=== PATIENT | male | born 1940 | race Caucasian/White ===

== ENCOUNTER 2024-08-24 19:11 | Inpatient (IN) | payer MEDICARE, SELFPAY ==
[2024-08-24] VITALS (25 sets, daily range): BP systolic 114–201; BP diastolic 50–100; BMI 25.5
[2024-08-24] MEDS: KEPPRA 1500 MG IV (16:44)
[2024-08-24 16:47] LABS: % Basophils 0.7 % (0-2); % Eosinophils 2.3 % (0-6); % Immature Granulocytes 0.4 % (0-0.5); % Lymphocytes 26.7 % (20.5-51.1); % Monocytes 4.1 % (1.7-9.3); % Neutrophils 65.8 % (42.2-75.2); Absolute Basophils 0.1 10^3/uL (0-0.2); Absolute Eosinophils 0.3 10^3/uL (0-0.7); Absolute Immature Granulocytes 0.1 10^3/uL (0-0.05); Absolute Lymphocytes 3.3 10^3/uL (1.2-3.4); Absolute Monocytes 0.5 10^3/uL (0.1-0.6); Hemoglobin 15.2 g/dL (13.0-18.0); Mean Corpuscular Hgb 32.3 pg (27.0-31.0); Mean Corpuscular Volume 97.7 fL (80.0-94.0); Mean Platelet Volume 10.8 fL (7.4-10.4); Nucleated Red Blood Cells % 0 % (-); Platelet Count 263 10^3/uL (130-400); Red Blood Cell Count 4.71 10^6/uL (4.70-6.10); Red Cell Dist. Width 12.2 % (11.5-14.5); White Blood Cell Count 12.2 10^3/uL (4.8-10.8)
[2024-08-24 17:01] LABS: PT 13.5 Sec (11.4-14.6)
[2024-08-24 17:02] LABS: APTT 23.9 Sec (23.4-35.0)
[2024-08-24] MEDS: ATIVAN 2 MG IV (17:13)
[2024-08-24 17:19] LABS: AST (SGOT) 24 U/L (17-59); Alkaline Phosphatase 71 U/L (38-126); Blood Urea Nitrogen 23 mg/dl (9-20); Calcium 8.5 mg/dl (8.4-10.2); Carbon Dioxide 12 mmol/L (22-30); Chloride 107 mmol/L (98-107); Estimated Creatinine Clearance 35 ml/min; Glucose 131 mg/dl (70-99); Potassium 4.3 mmol/L (3.5-5.1); Sodium 139 mmol/L (135-145); Total Bilirubin 0.8 mg/dl (0.2-1.3); Total Protein 6.4 g/dl (6.3-8.2); eGFR 42.22
--- NOTE | 2024-08-24 17:20 | EDRN ---
Dr. Loaiza is is currently at the bedside preparing to intubate, respiratory bringing vent to bedside
[2024-08-24 17:24] LABS: ALT (SGPT) < 30 U/L (0-50)
--- NOTE | 2024-08-24 17:25 | EDRN ---
20mg Etomidate administered
--- NOTE | 2024-08-24 17:25 | EDRN ---
70mg Phil administered
--- NOTE | 2024-08-24 17:25 | EDRN ---
Dr. Loaiza intubating with respiratory at bedside and multiple RN's
--- NOTE | 2024-08-24 17:27 | EDRN ---
Dr. Loaiza currently intubating
--- NOTE | 2024-08-24 17:27 | EDRN ---
positive color change per Dr. Loaiza and respiratory
--- NOTE | 2024-08-24 17:34 | ED.GENMED ---
History of Present Illness
General
Chief Complaint: Seizure
Time Seen by Provider: 08/24/24 16:41
History of Present Illness
History of Present Illness:
84-year-old male with history of seizure disorder on Keppra presenting after a seizure. Patient arrives with family at bedside, called in by medics for seizure activity. Patient ran out of his Keppra last weekend, had not had Keppra for 3 days.
Today, had a witnessed seizure while sitting down, reportedly 15 minutes. Administered 4 mg of Versed and route to the hospital with subsequent improvement of seizure activity. On arrival, patient postictal unable to comply with additional history
or questioning. Family notes that he has not had a seizure for about 10 years. No report of recent fever or illness. No additional history obtained at this time. Of note, medics report when transferring patient, suffered a skin tear to his right
forearm. No report of fall
Past History
Past History
ED Past Medical History: Hypercholesterolemia, Seizures (1 prior seizure in the past) and Other (Gout)
PSI?: No
Social History
Tobacco: Non-smoker
Alcohol: Daily (Patient reports taking 1 shot of alcohol each night)
Drug: None
Personal:
Living: with family
Family History
Family History: Other
Phy Exam
Physical Exam
Physical Exam:
General: Unresponsive, suspected postictal state
HEENT: protecting airway
Neck: appears supple
CV: Normal heart rate, regular rhythm
Resp: No accessory muscle use, no increased work of breathing, lungs clear to auscultation bilaterally
Abd: Soft and non-distended, no tenderness to palpation
Extremities: No deformities, no swelling, no erythema. Large skin tear to the right forearm
Neuro: Not currently responsive, no verbal or motor response.
: deferred
Rectal: deferred
Psych: Normal affect
Skin: Intact
Course
Orders/Labs/Results
Orders:
Orders
08/24/24 16:30
Electrocardiogram (*1) Urgent
Reason for Study: Other
Other Reason for Exam: seizure
CT Head W/o Iv Contrast Urgent
Comment:
Reason For Exam: seizure
08/24/24 16:31
EKG- Treatment ONCE
08/24/24 16:33
Complete Blood Count/With Diff Urgent
Comprehensive Metabolic Panel Urgent
PTT Urgent
Prothrombin Time Urgent
08/24/24 16:41
Levetiracetam Injectable [Keppra] 1,500 mg IV NOW STA
08/24/24 16:49
Lorazepam [Ativan] 2 mg .ROUTE .STK-MED ONE
08/24/24 17:13
Lorazepam [Ativan] 2 mg IV NOW STA
08/24/24 17:16
Propofol 1,000,000 Mcg/100 ml [Diprivan] 1,000,000 mcg in 100 ml .ROUTE .STK-MED
08/24/24 17:27
CXR Port [CR Chest Portable - 1 View] Urgent
Comment:
Reason For Exam: post intubation
Reason Study Needs to be Portable: Patient Unstable
08/24/24 17:30
Propofol 1,000,000 Mcg/100 ml [Diprivan] 1,000,000 mcg in 100 ml IV PER PROTOCOL
Indication:: Deep Sedation
Begin Infusion:: Now
Goal:: RASS -3 to -5 or BIS < 60 or ventilator synchrony
Maximum dose in mcg/kg/min:: 50
Continue currently infusion dose and titrate:: Yes
Titration Instructions:: Titrate by 5-10 mcg/kg/min every 5 minutes until RASS -3 to -5 or
Titration Instructions:: BIS < 60 or ventilator synchrony is met.
Titration Instructions:: Administer analgesia bolus dose(s) & titrate analgesia prior to
Titration Instructions:: adjusting sedation.
Taper Instructions:: If RASS is at or below goal for 4 consecutive hours decrease infusion by
Taper Instructions:: 5-10 mcg/kg/min every 2 hours. Do not wean infusion to off if patient is
Taper Instructions:: receiving a continuous NMBA or has received bolus NMBA with the past 3 hrs
Over-sedation Instructions:: If BIS < 40 and synchronous with ventilator decrease infusion by
Over-sedation Instructions:: 5-10 mcg/kg/min every 2 hour until BIS = 40-60.
Notify provider:: immediately if patient exhibits signs/symptoms of propofol-related
Notify provider:: infusion syndrome.
Additional Instructions:: Patient MUST be mechanically ventilated and MUST receive analgesia.
08/24/24 17:31
Triglycerides Routine
Comment: baseline levels with propofol infusion
08/24/24 17:38
ABG [Arterial Blood Gas] Urgent
%Oxygen/Room Air: 60
08/27/24 06:00
Triglycerides Q3D
Comment: every 72 hours while patient is on propofol
08/30/24 06:00
Triglycerides Q3D
Comment: every 72 hours while patient is on propofol
09/02/24 06:00
Triglycerides Q3D
Comment: every 72 hours while patient is on propofol
Abnormal Lab Results
08/24/24
16:33
WBC 12.2 H 10^3/uL
(4.8-10.8)
MCV 97.7 H fL
(80.0-94.0)
MCH 32.3 H pg
(27.0-31.0)
MPV 10.8 H fL
(7.4-10.4)
Abs Immat Gran (auto) 0.1 H 10^3/uL
(0-0.05)
Absolute Neuts (auto) 8.0 H 10^3/uL
(1.4-6.5)
Carbon Dioxide 12 L* mmol/L
(22-30)
BUN 23 H mg/dl
(9-20)
Creatinine 1.6 H mg/dL
(0.7-1.3)
Glucose 131 H mg/dl
(70-99)
08/24/24 16:33
08/24/24 16:33
Vital Signs
Initial and Last Documented VS:
Initial Vital Signs
Pulse Resp Pulse Ox
95 22 96
08/24/24 16:32 08/24/24 16:32 08/24/24 16:32
Last Documented Vital Signs
Temp Pulse Resp BP Pulse Ox
97.5 F 95 16 172/83 95
08/24/24 17:04 08/24/24 17:04 08/24/24 17:04 08/24/24 17:04 08/24/24 17:04
Procedures
Laceration Closure
Right Distal Arm:
Size of Wound in cm: 10
Description of Wound Edges: flap-poorly vascularized
Type of Closure: single layer closure
Skin Closure Material: 3-0 nylon
Number of sutures: 4
Additional information:
large skin tear, friable skin, dressed appropriately
MDM/Problems Addressed
MDM/Problems Addressed:
84-year-old male presenting to the emergency department after seizure. Known seizure history. Vital signs significant for high blood pressure.
On exam patient is unresponsive, however does appear to be presently protecting airway. Placed on supplemental O2. Family notes that he ran out of his Keppra last week and, so missed several days of medication. Suspect seizure from noncompliance
with medication. No convulsive seizure activity at this time, does occasionally have some rapid eye movements and grinding of the teeth, possibly subclinical seizures. Plan for laboratory analysis and CT brain imaging. Will start patient on
Keppra.
17:20 -Patient is not clinically improving from a postictal perspective. CT without obvious sign of intracranial bleed. In discussion with family, decision made to intubate for airway protection. Did discuss with neurology, plan for starting
propofol once intubated for continued seizure control.
17:40 -patient intubated without issue. Please see procedure note. Plan for admission. Of note, right skin tear, 4 sutures placed for approximation, however unable to repair whole arm secondary to friable skin
*Critical Care Note
Total Time (30-74mins, 75-104mins- exclusive of procedures): 62
comment:
The high probability of a clinically significant, sudden or life threatening deterioration of the neurologic system(s)/seizures required my full and direct attention, intervention and personal management. The aggregate critical care time was []
minutes. This time is in addition to time spent performing reported procedures but includes the following:
[x] Data Review and interpretation
[x] Patient assessment and monitoring of vital signs
[x] Documentation
[x] Medication orders and management
ED Attending Note
-
Portions of this chart may have been created with voice recognition software.� Occasional wrong word or��sound alike� substitutions may have occurred due to the inherent limitations of voice recognition software.
Discharge Plan
Departure
Prescriptions:
No Action
atorvastatin 40 MG tablet
40 mg PO QPM
allopurinol 100 MG tablet
100 mg PO DAILY
aspirin [Aspir-Low] 81 MG tablet,delayed release (DR/EC)
81 mg PO DAILY
finasteride 5 MG tablet
5 mg PO DAILY
levetiracetam 500 MG tablet
500 mg PO BID Qty: 30 0RF
cephalexin 500 mg capsule
500 mg PO TID Qty: 21 0RF
Interventions
Interventions:
*Risk Screen - Suicide Last Done: 08/24/24 17:04
*General Assessment Last Done: 08/24/24 17:04
*Neglect/Abuse Screening Last Done: 08/24/24 17:04
ED- Fall Risk Assessment Last Done: 08/24/24 17:04
*ED COVID-19 Vaccine History Last Done: 08/24/24 17:04
ED- Cardiac Assessment Last Done: 08/24/24 17:04
ED- Neurological Assessment Last Done: 08/24/24 17:04
ED- Pulmonary Assessment Last Done: 08/24/24 17:04
Discharge Date and Time
Print Language: MACEDONIAN
[2024-08-24] MEDS: DIPRIVAN 100 IV ×2 (17:35→20:57)
--- NOTE | 2024-08-24 17:50 | EDRN ---
Dr. Loaiza brought to the pts bedside, provider checking placement of ETT
--- NOTE | 2024-08-24 17:51 | EDRN ---
ETT advanced to 24cm
[2024-08-24 18:01] LABS: B.E. -7.9 mmol/L; HCO3 20.1 mmol/L (21-28); PCO2 49 mmHg (35-48); PO2 72 mmHg (83-108); pH 7.22 (7.35-7.45)
--- NOTE | 2024-08-24 18:18 | EDRN ---
this RN and Dulce RN changed the pts gown, brief, and linens, the pt has multiple skin tears on b/l arms and the pts skin tears easily, pts PIV site dressings were changed due to bleeding around PIV site, PIV's flushed and positive blood return
noted, the pt is resting in stretcher in the lowest position, side rails up x2, call najera within reach, HOB elevated, VS WNL, the pts family is at the pts bedside, will continue to monitor the pt closely
--- NOTE | 2024-08-24 18:26 | EDRN ---
the pt is hypertensive, this RN notified Dr. Loaiza
[2024-08-24] MEDS: TRANDATE 20 MG IV (18:30)
--- NOTE | 2024-08-24 18:51 | HPS.HSE ---
Family Physician
-
Family Physician: Sae Schuster MD
Chief Complaint
-
Status Epilepticus
History of Present Illness
Is a 84-year-old with past medical history significant for epilepsy on Keppra 500 mg twice daily presents to the emergency department in the setting of seizure activity.
Medics medics were called after the patient experienced seizure activity at home. Apparently he ran out of his Keppra and had not taken it for over 3 days. He started taking the Keppra again 5 days ago at 500 twice daily and not being consistent
until today. He had a witnessed seizure while sitting down reportedly lasting 15 minutes. 4 mg of Versed was given en route to the hospital with subsequent improvement in seizure activity.
On arrival the patient was still unresponsive and postictal in the emergency department. He apparently was grinding his teeth and it was unclear whether he had complete cessation of seizure activity or was having nonepileptic seizures.
Patient immediately intubated for airway protection.
Initial vital signs showed a blood pressure of 196/90 with a pulse of 99. Oxygen saturation is 97 from percent on the ventilator.
CT of the head shows no acute intracranial process.
CBC was mostly unremarkable consistent with post ictal state. Electrolytes BUN/creatinine are notable for a bicarb of 12, creatinine of 1.6 and a glucose of 131.
Medical History
Past Medical History
Past Medical History: Reports Hypercholesterolemia, Seizures and Other (BPH, gout)
Past Surgical History: Reports Other
Social History
Unable to obtain full social history at this time due to: Patient Intubation
Family History
Family History: Not pertinent
Allergies / Home Medications
Allergies reflects when Allergies were last updated in [email or web address].
Home Medications with original date entered in [email or web address]
Allergy/Medication List:
Allergies
Allergy/AdvReac Type Severity Reaction Status Date / Time
No Known Allergies Allergy Verified 02/24/23 20:19
Home Medications
allopurinol 100 mg tablet 100 mg PO DAILY 06/07/17
atorvastatin 40 mg tablet 40 mg PO DAILY 06/07/17
finasteride 5 mg tablet 5 mg PO DAILY 06/07/17
levetiracetam 500 mg tablet 500 mg PO BID #30 tabs 06/07/17
sennosides 8.6 mg tablet (Senokot) 8.6 mg PO DAILYPRN PRN constipation 08/24/24
Review of Systems
-
Unable to obtain full review of systems at this time due to: Patient Intubation
Physical Exam
Vital Signs
Vital Signs
Temp Pulse Resp BP Pulse Ox
97.5 F 99 26 196/91 97
08/24/24 17:04 08/24/24 18:30 08/24/24 18:28 08/24/24 18:30 08/24/24 18:28
Physical Exam
General: Intubated
HEENT: NormoCephalic, Anicteric, Moist mucous membranes and Atraumatic
Respiratory: Clear
Cardiac: S1/S2 and Regular Rhythm
Breast: Deferred by me
GI: Soft and Non Distended
Rectal: Deferred by Provider
Genito-urinary: Deferred by me
Musculoskeletal: No Clubbing, No Cyanosis and No Edema
Skin: Warm
Neuro: Sedated
Hematologic/Lymphatic: No Lymphadenopathy
Laboratory Results
-
08/24/24 16:33
08/24/24 16:33
Laboratory Results
PT 13.5 Sec (11.4-14.6) 08/24/24 16:33
INR 1.00 08/24/24 16:33
APTT 23.9 Sec (23.4-35.0) 08/24/24 16:33
pH 7.22 (7.35-7.45) L 08/24/24 17:42
pCO2 49 mmHg (35-48) H 08/24/24 17:42
pO2 72 mmHg (83-108) L 08/24/24 17:42
HCO3 20.1 mmol/L (21-28) L 08/24/24 17:42
Total Bilirubin 0.8 mg/dl (0.2-1.3) 08/24/24 16:33
AST 24 U/L (17-59) 08/24/24 16:33
ALT < 30 U/L (0-50) 08/24/24 16:33
Alkaline Phosphatase 71 U/L (38-126) 08/24/24 16:33
Data Reviewed
-
Diagnostic Radiology: Image Personally Visualized and interpreted
CT Scan: Report Reviewed by me
Lab Data: Labs Reviewed by me
Old Records: Reviewed
Impression/Plan
-
IMPRESSION:
84-year-old with past medical history significant for seizure episodes falls diagnosed about 10 years ago presenting to the emergency department with seizure episode, tonic-clonic lasting about 10 minutes prior to EMS arrival and patient postictal.
Likely had status epilepticus. Intubated for airway protection on arrival in ED. Patient missed 3 days of keppra from Sunday to Sunday. Restarted Keppra 500 bid on sunday and has been compliant. No anatomical cause of original epilepsy [address] head negative. No obvious toxins, infectious process. No obvious CVA. No etoh use or h/o withdrawal.
PLAN:
1. Status Epilepticus -
- intubated for airway protection
- Keppra 1.5 g given, continue 1 g q 12
- propofol gtt for sedation and antiseizure.
- eeg in am
- mri in am
- neurology consult
- titrate vent settings per real estate salesperson
- supportive measures and iv fluids
2. Fever - Post intubation xray with homogeneous opacity in the retrocardiac left lower lobe. Possible considerations include pleural effusion, atelectasis, or pneumonia.
- suspect aspiration in setting of seizure
- viral panel negative
- blood cultures, u/a
- unasyn for now
3. BPH
- continue finesteride
DVT PPX - heparin sq
Code status - Full Code
[2024-08-24 18:55] LABS: Triglycerides 64 mg/dl (10-149)
[2024-08-24] MEDS: SUBLIMAZE 100 IV (21:03)
[2024-08-24] MEDS: D5LR 1000 IV (21:03)
[2024-08-24] MEDS: SUBLIMAZE 100 MCG IV (21:04)
[2024-08-24] MEDS: TYLENOL/FEVERALL 650 MG RECTAL (21:08)
[2024-08-24 22:01] LABS: COVID-19 Antigen Negative (Negative)
[2024-08-24 22:02] LABS: Blood Urea Nitrogen 27 mg/dl (9-20); Calcium 8.4 mg/dl (8.4-10.2); Carbon Dioxide 21 mmol/L (22-30); Chloride 109 mmol/L (98-107); Creatine Phosphokinase 52 U/L (55-170); Estimated Creatinine Clearance 38 ml/min; Glucose 121 mg/dl (70-99); Potassium 4.5 mmol/L (3.5-5.1); Sodium 138 mmol/L (135-145); Triglycerides 85 mg/dl (10-149); eGFR 45.62
--- NOTE | 2024-08-24 22:33 | PTCARENOTE ---
VS captured prior to 20:20 were from ED, prior to arrival to ICU.
[2024-08-24 22:40] LABS: Urine Albumin 2+ (Neg - Trace); Urine Bilirubin Negative (Negative); Urine Character Slightly Cloudy (Clear); Urine Color Yellow; Urine Glucose Negative (Negative); Urine Ketone 1+ (Negative); Urine Leukocyte Negative (Negative); Urine Nitrite Negative (Negative); Urine Occult Blood 4+ (Negative); Urine Urobilinogen Negative (Neg - 1+)
[2024-08-24 22:40] LABS: B.E. -3.5 mmol/L; HCO3 20.4 mmol/L (21-28); PCO2 33 mmHg (35-48); PO2 80 mmHg (83-108)
[2024-08-24 22:45] LABS: Lactic Acid 3.4 mmol/L (0.7-2.0)
[2024-08-24 22:49] LABS: Urine Bacteria Few (Negative); Urine Red Blood Cell 26-30 /HPF (0-2)
--- NOTE | 2024-08-24 22:50 | PTCARENOTE ---
Pt arrived to ICU from ED approx 20:20. Pt arrives intubated and sedated. Pupils 3/brisk, corneal reflex intermittent, +cough/gag. SR 70s, palpable pulses. Temp 101.6, rectal tylenol given, blood/urine/sputum cx sent. #7.5 ETT @ 26cm, received on AC
16/500/60%/+5, FiO2 decreased by RT to 40%. Pt continues to sat 100%. Breath sounds coarse t/o. Active BS, no BM noted at this time. Temp-sensing guzman placed, initial output 150ml. and daughter updated. Safe environment maintained.
[2024-08-24] MEDS: UNASYN IV (23:03)
[2024-08-25] VITALS (39 sets, daily range): BP systolic 109–170; BP diastolic 39–83; BMI 24.6
[2024-08-25] MEDS: HEPARIN 5000 UNITS SC ×3 (01:09→17:14)
[2024-08-25] MEDS: TYLENOL/FEVERALL 650 MG RECTAL (01:09)
[2024-08-25] MEDS: NSS 1000 IV ×2 (01:12→03:24)
[2024-08-25 01:16] LABS: Lactic Acid 2.7 mmol/L (0.7-2.0)
[2024-08-25 01:21] LABS: Procalcitonin < 0.05 ng/ml (0.0-0.25)
[2024-08-25] MEDS: DIPRIVAN 100 IV (03:24)
[2024-08-25] MEDS: UNASYN IV ×4 (03:24→22:21)
[2024-08-25] MEDS: KEPPRA 1000 MG IV ×3 (03:59→20:04)
[2024-08-25 05:19] LABS: Hematocrit 36.6 % (39.0-52.0); Hemoglobin 13.3 g/dL (13.0-18.0); Mean Corp Hgb Conc. 36.3 g/dL (33.0-37.0); Mean Corpuscular Hgb 34.6 pg (27.0-31.0); Mean Corpuscular Volume 95.3 fL (80.0-94.0); Mean Platelet Volume 11.3 fL (7.4-10.4); Platelet Count 173 10^3/uL (130-400); Red Blood Cell Count 3.84 10^6/uL (4.70-6.10); Red Cell Dist. Width 12.6 % (11.5-14.5); White Blood Cell Count 16.8 10^3/uL (4.8-10.8)
[2024-08-25 05:23] LABS: Lactic Acid 1.6 mmol/L (0.7-2.0)
[2024-08-25 05:42] LABS: Blood Urea Nitrogen 24 mg/dl (9-20); Calcium 6.6 mg/dl (8.4-10.2); Carbon Dioxide 14 mmol/L (22-30); Chloride 105 mmol/L (98-107); Estimated Creatinine Clearance 47 ml/min; Glucose 128 mg/dl (70-99); HDL Cholesterol 46 mg/dl; Magnesium 1.9 mg/dl (1.6-2.3); Phosphorus 2.2 mg/dl (2.5-4.5); Sodium 130 mmol/L (135-145); Total Cholesterol 95 mg/dl (50-199); eGFR 59.63
--- NOTE | 2024-08-25 05:51 | PTCARENOTE ---
Pt with 25-30ml/hr of urine output, x2L NSS bolus given. Ca = 6.6, 3g rider ordered. CO2 = 14, IVF changed to SW w/ bicarb.
[2024-08-25 06:24] LABS: Triglyceride > 2625 mg/dl (10-149)
[2024-08-25] MEDS: SODIUM BICARBONATE 1150 MEQ IV (06:38)
[2024-08-25] MEDS: CALCIUM GLUCONATE 130 MG IV (06:39)
[2024-08-25 06:52] LABS: LDL Cholesterol, Direct < 30 mg/dl
--- NOTE | 2024-08-25 07:15 | CON.INTV ---
Consultation
Consultation Request
Date/Time Consultation Requested: 08/25/24
Date/Time Consultation Performed: 08/25/24
Performing Provider: [facility]
Reason for Consultation: ICU
Medical History
-
History of Present Illness:
Patient is a 84-year-old male with history of seizure disorder on Keppra, BPH, HLD presenting to ER for witnessed seizure at home. Reportedly patient had ran out of his Keppra last weekend, missed dosing for total of 3 days. Seizure is noted to
last about 15 minutes, EMS called. Administered 4 mg of Versed and route to the hospital with subsequent improvement of seizure activity. On arrival, patient postictal unable to comply with additional history or questioning. Family notes that he
has not had a seizure for about 10 years. No report of recent fever or illness. No additional history obtained at this time. Of note, medics report when transferring patient, suffered a skin tear to his right forearm. No report of fall or self
injury.
Intubated in ER for unresponsiveness, admitted to ICU.
Past Medical History
Past Medical History: Other (see list below)
Social History
Tobacco: Non-smoker
Alcohol: None
Drug: None
Family History
Family History: Reviewed & Not Pertinent
Allergies / Home Medications
Allergies
Allergy/AdvReac Type Severity Reaction Status Date / Time
No Known Allergies Allergy Verified 02/24/23 20:19
Home Medications
�Medication �Instructions �Recorded �Confirmed �Last Taken �Type
allopurinol 100 mg tablet 100 mg PO DAILY 06/07/17 08/24/24 Unknown History
atorvastatin 40 mg tablet 40 mg PO DAILY 06/07/17 08/24/24 Unknown History
finasteride 5 mg tablet 5 mg PO DAILY 06/07/17 08/24/24 Unknown History
levetiracetam 500 mg tablet 500 mg PO BID #30 tabs 06/07/17 08/24/24 Unknown Rx
sennosides 8.6 mg tablet (Senokot) 8.6 mg PO DAILYPRN PRN constipation 08/24/24 08/24/24 Unknown History
Review of Systems
-
Unable to Obtain full review of systems at this time due to: Patient Intubation
Vitals / Labs / Diagnostic Testing
Vital Signs
Temp Pulse Resp BP Pulse Ox
99.5 F 61 16 119/54 95
08/25/24 05:55 08/25/24 05:45 08/25/24 05:45 08/25/24 05:30 08/25/24 05:45
Lab Data
08/25/24 04:46
Laboratory Results
08/24/24 08/24/24 08/24/24
16:33 17:42 22:29
PT 13.5
INR 1.00
APTT 23.9
pH 7.22 L 7.40
pCO2 49 H 33 L
pO2 72 L 80 L
HCO3 20.1 L 20.4 L
O2 Delivery Level
Microbiology
08/24/24 21:34 Nasal Swab Influenza Types A & B (SHAHID) - Final
Negative for Influenza A & B, NAAT
Negative results must be combined with clinical observations
and patient history.
Nucleic Acid Amplification test (NAAT)performed on the
[employer] platform.
Diagnostic Testing:
Physical Exam
-
HEENT: Normocephalic, Anicteric and Moist Mucous Membranes
Cardiovascular: S1/S2 and Regular Rhythm
Respiratory: Clear, Non-Labored Respirations and Other (ETT)
GI: Soft, Non Distended and Non Tender
Neurology: Other (lethargic, minimally arousable)
Skin: Warm, Dry and Good Color
General: Comfortable and Other (NAD)
Assessment
-
Patient is a 84-year-old male with history of seizure disorder on Keppra, BPH, HLD presenting to ER for witnessed seizure at home. Reportedly patient had ran out of his Keppra last weekend, missed dosing for total of 3 days. Seizure is noted to
last about 15 minutes, EMS called. Administered 4 mg of Versed and route to the hospital with subsequent improvement of seizure activity. On arrival, patient postictal unable to comply with additional history or questioning. Family notes that he
has not had a seizure for about 10 years. No report of recent fever or illness. No additional history obtained at this time. Of note, medics report when transferring patient, suffered a skin tear to his right forearm. No report of fall or self
injury.
Intubated in ER for unresponsiveness, admitted to ICU.
Acute witnessed generalized seizure
Noncompliance with medication for 3 days
Postictal/unresponsiveness s/p intubation for airway protection
Leukocytosis, likely post seizure
Metabolic acidosis
Hypocalcemia
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
Benign prostatic hyperplasia with lower urinary tract symptoms
Pure hypercholesterolemia
Chronic gout of foot
Stage 3a chronic kidney disease
Seizure disorder--Last seizure occurred 7 years ago in 05/2017; none since-on Keppra 500mg BID
Mild cognitive impairment
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
Primary open angle glaucoma (POAG) of both eyes, mild stage
Inguinal hernia Repair (2001)
Bilateral cataract surgery
Cigar smoker--Has been smoking 1 cigar daily for decades, not interested in quitting
Plan
Still remains lethargic, minimally arousable, likely postictal
Seizure d/o triggered presumably from noncompliance
Neuro consult obtained, Keppra dose increased
Denies pain at this time.
Pain/sedation: PRN, wean off sedation for SAT/SBT
RASS goals: 0
MRI planning
Hemodynamically stable, not requiring pressors.
Cardiac history reviewed--HLD
No prior ECHO for review
Resume home meds
Monitor on telemetry
Intubated, airway protection
Vent setting reviewed: AC 500/16/40/5
Prior history of lung disease: No history of lung disease
Supplemental O2 as indicated to maintain sats > 89%
CXR/CT reviewed indicating possible LLL consolidation, presumed aspiration
Check sputum culture
SBT-eval for extubation today
NPO, resume diet when able
Retort Unloader recommendations
Aspiration precautions, HOB > 30 degrees
Speech therapy eval
GI prophylaxis if indicated for mechanical ventilation >48 hours, prior history of GERD, stress ulcer formation in the critically ill
Creat at baseline, no history of renal disease
Void trials
Follow urine output, critical I/Os
Replete electrolytes as needed
Acid/base status: met acid likely from seizure
Possible aspiration PNA
Started on empiric antibiotics
Cultures sent/pending
DE-escalate pending data
Follow fever trend, WBC count
CBC stable, no signs of bleeding or coagulopathy.
DVT prophylaxis as assessed based on risk, including mechanical SCDs
Can transfuse if indicated for Hb <7, plt < 10
No prior h/o diabetes or thyroid disease
Monitor accuchecks PRN/SS coverage if needed
Can likely transfer to floors post extubation if doing well.
Updated family on arounds and at bedside throughout extubation process.
Diagnostic Data
Chest X-Ray: 08/24/24- Endotracheal tube tip approximately 7 cm above the kassi. No pneumothorax. Right lung clear. Homogeneous opacity in the retrocardiac left lower lobe. Possible considerations include pleural effusion, atelectasis, or pneumonia.
CT Scan: HCT 08/24/24- No acute intracranial abnormality noted. No acute intracranial hemorrhage. Mild chronic white matter ischemic change. No mass effect.
Echo:
PFT's:
Reports and relevant images were personally reviewed.
-----
Critical care time 76 mins -- this includes review of history, physical exam, medications, hemodynamic/ventilator parameters, laboratory data, imaging and discussion with house staff, pharmacy, respiratory therapy, rand butting machine operator, and nursing.
[2024-08-25] MEDS: SUBLIMAZE 50 MCG IV (07:42)
[2024-08-25] MEDS: PROTONIX IV 40 MG IV (07:42)
--- NOTE | 2024-08-25 07:52 | CON.NEURO ---
Consultation
Order
Date of Consultation: 08/25/24
Requesting Provider: Troy Cannon MD
Reason for Consult: Seizure
Neurology Consultation Note.
HPI: This is an 84-year-old man who presented to [facility] on 08/24/2024 with fever and witnessed seizure.
According to patient's spouse Mr. Edmonds has a history of 2 seizures for 10 years, initially occurring in [place]. After relocating in 2017, he experienced another seizure within a month. He was managed on Keppra without issues until recently when
he missed three days of medication due to a refill problem. Subsequently, the patient suffered a prolonged seizure lasting over 15 minutes. He was found unresponsive, staring at the TV, and then developed convulsions.
ER VS: 172/83-196/91, 95, 95% on RA, T�38.7C
EKst degree of AVB, QTc Int : 457 ms
PDMP: none
Labs: Glucose�131, sodium�139�130, CO2�12�14, creatinine�1.6, calcium�8.5-6.6 magnesium�1.9, WBCs�16.8, CK�52, triglycerides 64-2625, UA�RBCs�26�30, albumin 2+, negative nitrates, leukocyte esterase
CT head wo contrast-mild chronic white matter ischemic change
Chest XR-homogeneous opacity in the retrocardiac left lower lobe.
Routine EEG(08/25/2024)-severe generalized slowing, no epileptiform abnormalities
Mr. Edmonds's Keppra was increased to 1 g BID and he was started on Unasyn.
PMH: Epilepsy, gout, left leg SCC, CKD, BPH, open angle glaucoma
PSH: Hernia surgery, bilateral cataract surgery, Mohs surgery
SH:, retired from ; active smoker, consumes one shot of alcohol nightly, independent in AIDLs.
FH: Not contributory to current presentation
All:NKDA
ROS: Unable due to encephalopathy
General: Intubated, sedated
Cardio: Regular rate and rhythm without murmur. Extremities are without cyanosis or edema.
Neuro:
Mental Status: Comatose does not follow requests.
Cranial Nerves: Orthophoric primary gaze. Pupils are equally round, surgical positive corneals, cold cephalic, gag.
Motor: Flaccid quadriplegia.
Reflexes: Negative clonus bilateral
Sensory: Does not grimace to noxious stimuli
Coordination: No tremors myoclonic movements
Gait: deferred
Assessment and Plan:
I. Multifactorial encephalopathy (postictal, vascular, toxic, infectious, metabolic(hyponatremia)
II. Seizure, likely provoked.
III. Fever(infectious versus medication induced)
-Seizure precautions
-Continue Keppra 1 g twice daily IV
-Avoid hypoglycemia, hyper calcemic
-please check TSH, free T4
-Thiamine 100mg QD IV
-Nicotine patch
-Brain MRI wo niya
-ID consult
-Will follow
-The case was discussed with patient's spouse and daughter present at bedtime.
I personally reviewed all radiology and labs along with past medical records pertinent to current medical problems. Total time spent in patient care is 55 minutes.
Thank you for allowing us to participate in the care of this patient. We will continue to follow. Please do not hesitate to contact us with any questions or concerns.
Subjective/Objective
Subjective Data
Date of Service: August 25, 2024
Objective Data
Vital Signs
Temp Pulse Resp BP Pulse Ox
37.3 C 61 16 119/54 95
08/25/24 07:22 08/25/24 05:45 08/25/24 05:45 08/25/24 05:30 08/25/24 05:45
Lab Results
08/25/24 04:46
PT 13.5 Sec (11.4-14.6) 08/24/24 16:33
INR 1.00 08/24/24 16:33
APTT 23.9 Sec (23.4-35.0) 08/24/24 16:33
Sodium 130 mmol/L (135-145) L D 08/25/24 04:46
Potassium 4.0 mmol/L (3.5-5.1) 08/25/24 04:46
BUN 24 mg/dl (9-20) H 08/25/24 04:46
Glucose 128 mg/dl (70-99) H 08/25/24 04:46
Calcium 6.6 mg/dl (8.4-10.2) L* D 08/25/24 04:46
Phosphorus 2.2 mg/dl (2.5-4.5) L 08/25/24 04:46
LDL Cholesterol Direct < 30 mg/dl 08/25/24 04:46
LDL Cholesterol, Calc mg/dl 08/25/24 04:46
Patient Allergies
No Known Allergies Allergy (Verified 02/24/23 20:19)
Medications
-
Active Medications
Generic Name Dose Route Start Last Admin
Trade Name Freq PRN Reason Stop Dose Admin
Acetaminophen 650 mg 08/24/24 20:34 08/25/24 01:09
Acetaminophen 650 Mg Rectal Suppository RECTAL 09/21/24 20:33 650 mg
Q4HPRN PRN Administration
CALVO, mild pain, or temp >100.4F
Acetaminophen 650 mg 08/24/24 20:45
Acetaminophen 325 Mg Tablet TUBE 09/21/24 20:33
Q4HPRN PRN
CALVO, mild pain, or temp >100.4F
Allopurinol 100 mg 08/25/24 08:00
Allopurinol 100 Mg Tablet TUBE 09/22/24 07:59
DAILY AARON
Atorvastatin Calcium 40 mg 08/25/24 08:00
Atorvastatin (Lipitor) 40 Mg Tablet TUBE 09/22/24 07:59
DAILY AARON
Fentanyl Citrate 50 mcg 08/24/24 20:43 08/25/24 07:42
Fentanyl (50 Mcg/Ml) 100 Mcg/2 Ml Ampul IV 09/07/24 20:42 50 mcg
[id number] PRN Administration
see protocol
Protocol
Finasteride 5 mg 08/25/24 08:00
Finasteride 5 Mg Tablet TUBE 09/22/24 07:59
DAILY AARON
Heparin Sodium 5,000 units 08/25/24 00:00 08/25/24 07:40
Heparin 5,000 Units/Ml 1 Ml Vial SC 09/22/24 00:00 5,000 units
Q8 AARON Administration
Fentanyl Citrate 1,000 mcg in 100 mls @ 0 mls/hr 08/24/24 20:45 08/24/24 21:03
Sublimaze IV 100 mls
PER PROTOCOL AARON Administration
Protocol
Per Protocol
Propofol 1,000,000 mcg in 100 mls @ 0 mls/hr 08/24/24 21:00 08/25/24 03:24
Diprivan IV 100 mls
PER PROTOCOL AARON Administration
Protocol
Per Protocol
Ampicillin Sodium/Sulbactam 120 mls @ 240 mls/hr 08/24/24 22:00 08/25/24 03:24
Sodium 3 gm/ Sodium Chloride IV 120 mls
Q6H AARON Administration
Norepinephrine Bitartrate 4 mg in 250 mls @ 0 mls/hr 08/25/24 03:15
Levophed IV
PER PROTOCOL AARON
Protocol
Per Protocol
Sodium Bicarbonate 150 meq/ 1,150 mls @ 150 mls/hr 08/25/24 06:00 08/25/24 06:38
Sterile Water IV 08/26/24 05:59 1,150 mls
.Q7H40M AARON Administration
Levetiracetam 1,000 mg 08/25/24 04:30 08/25/24 07:41
Levetiracetam (100 Mg/Ml) 500 Mg/5 Ml Vial IV 09/22/24 04:29 1,000 mg
Q12 AARON Administration
Lorazepam 2 mg 08/24/24 20:45
Lorazepam 2 Mg/Ml Vial IV 09/21/24 20:44
Q4HPRN PRN
seizure/agitation
Ondansetron HCl 4 mg 08/24/24 20:34
Ondansetron 4 Mg/2 Ml Vial IV 09/21/24 20:33
Q6HPRN PRN
NAUSEA/VOMITING
Pantoprazole Sodium 40 mg 08/25/24 08:00 08/25/24 07:42
Pantoprazole Sodium 40 Mg/10 Ml Vial IV 09/22/24 07:59 40 mg
DAILY AARON Administration
Polyethylene Glycol 17 grams 08/25/24 08:00
Polyethylene Glycol Powder 17 Grams Packet TUBE 09/22/24 07:59
DAILY AARON
Sodium Chloride 1 ml 08/24/24 20:48
Nss (Pf) 10 Ml Vial For Ativan 2 Mg Dose IV 09/21/24 20:47
Q4HPRN PRN
IV LORAZEPAM DILUTION
Sodium Chloride 0 flush 08/25/24 01:00
Sodium Chloride 0.9% (Flush) Syringe IV 09/22/24 00:59
PER PROTOCOL AARON
Home Medications
�Medication �Instructions �Recorded
allopurinol 100 mg tablet 100 mg PO DAILY 06/07/17
atorvastatin 40 mg tablet 40 mg PO DAILY 06/07/17
finasteride 5 mg tablet 5 mg PO DAILY 06/07/17
levetiracetam 500 mg tablet 500 mg PO BID #30 tabs 06/07/17
sennosides 8.6 mg tablet (Senokot) 8.6 mg PO DAILYPRN PRN constipation 08/24/24
Vital Signs and Labs
-
Vital Signs and Labs:
Vital Signs
Temp Pulse Resp BP Pulse Ox
37.3 C 61 16 119/54 95
08/25/24 07:22 08/25/24 05:45 08/25/24 05:45 08/25/24 05:30 08/25/24 05:45
Lab Results
08/25/24 04:46
PT 13.5 Sec (11.4-14.6) 08/24/24 16:33
INR 1.00 08/24/24 16:33
APTT 23.9 Sec (23.4-35.0) 08/24/24 16:33
Sodium 130 mmol/L (135-145) L D 08/25/24 04:46
Potassium 4.0 mmol/L (3.5-5.1) 08/25/24 04:46
BUN 24 mg/dl (9-20) H 08/25/24 04:46
Glucose 128 mg/dl (70-99) H 08/25/24 04:46
Calcium 6.6 mg/dl (8.4-10.2) L* D 08/25/24 04:46
Phosphorus 2.2 mg/dl (2.5-4.5) L 08/25/24 04:46
LDL Cholesterol Direct < 30 mg/dl 08/25/24 04:46
LDL Cholesterol, Calc mg/dl 08/25/24 04:46
Medications
-
Medications:
Generic Name Dose Route Start Last Admin
Trade Name Freq PRN Reason Stop Dose Admin
Acetaminophen 650 mg 08/24/24 20:34 08/25/24 01:09
Acetaminophen 650 Mg Rectal Suppository RECTAL 09/21/24 20:33 650 mg
Q4HPRN PRN Administration
CALVO, mild pain, or temp >100.4F
Acetaminophen 650 mg 08/24/24 20:45
Acetaminophen 325 Mg Tablet TUBE 09/21/24 20:33
Q4HPRN PRN
CALVO, mild pain, or temp >100.4F
Allopurinol 100 mg 08/25/24 08:00
Allopurinol 100 Mg Tablet TUBE 09/22/24 07:59
DAILY AARON
Atorvastatin Calcium 40 mg 08/25/24 08:00
Atorvastatin (Lipitor) 40 Mg Tablet TUBE 09/22/24 07:59
DAILY AARON
Fentanyl Citrate 50 mcg 08/24/24 20:43 08/25/24 07:42
Fentanyl (50 Mcg/Ml) 100 Mcg/2 Ml Ampul IV 09/07/24 20:42 50 mcg
[id number] PRN Administration
see protocol
Protocol
Finasteride 5 mg 08/25/24 08:00
Finasteride 5 Mg Tablet TUBE 09/22/24 07:59
DAILY AARON
Heparin Sodium 5,000 units 08/25/24 00:00 08/25/24 07:40
Heparin 5,000 Units/Ml 1 Ml Vial SC 09/22/24 00:00 5,000 units
Q8 AARON Administration
Fentanyl Citrate 1,000 mcg in 100 mls @ 0 mls/hr 08/24/24 20:45 08/24/24 21:03
Sublimaze IV 100 mls
PER PROTOCOL AARON Administration
Protocol
Per Protocol
Propofol 1,000,000 mcg in 100 mls @ 0 mls/hr 08/24/24 21:00 08/25/24 03:24
Diprivan IV 100 mls
PER PROTOCOL AARON Administration
Protocol
Per Protocol
Ampicillin Sodium/Sulbactam 120 mls @ 240 mls/hr 08/24/24 22:00 08/25/24 03:24
Sodium 3 gm/ Sodium Chloride IV 120 mls
Q6H AARON Administration
Norepinephrine Bitartrate 4 mg in 250 mls @ 0 mls/hr 08/25/24 03:15
Levophed IV
PER PROTOCOL AARON
Protocol
Per Protocol
Sodium Bicarbonate 150 meq/ 1,150 mls @ 150 mls/hr 08/25/24 06:00 08/25/24 06:38
Sterile Water IV 08/26/24 05:59 1,150 mls
.Q7H40M AARON Administration
Levetiracetam 1,000 mg 08/25/24 04:30 08/25/24 07:41
Levetiracetam (100 Mg/Ml) 500 Mg/5 Ml Vial IV 09/22/24 04:29 1,000 mg
Q12 AARON Administration
Lorazepam 2 mg 08/24/24 20:45
Lorazepam 2 Mg/Ml Vial IV 09/21/24 20:44
Q4HPRN PRN
seizure/agitation
Ondansetron HCl 4 mg 08/24/24 20:34
Ondansetron 4 Mg/2 Ml Vial IV 09/21/24 20:33
Q6HPRN PRN
NAUSEA/VOMITING
Pantoprazole Sodium 40 mg 08/25/24 08:00 08/25/24 07:42
Pantoprazole Sodium 40 Mg/10 Ml Vial IV 09/22/24 07:59 40 mg
DAILY AARON Administration
Polyethylene Glycol 17 grams 08/25/24 08:00
Polyethylene Glycol Powder 17 Grams Packet TUBE 09/22/24 07:59
DAILY AARON
Sodium Chloride 1 ml 08/24/24 20:48
Nss (Pf) 10 Ml Vial For Ativan 2 Mg Dose IV 09/21/24 20:47
Q4HPRN PRN
IV LORAZEPAM DILUTION
Sodium Chloride 0 flush 08/25/24 01:00
Sodium Chloride 0.9% (Flush) Syringe IV 09/22/24 00:59
PER PROTOCOL AARON
Home Medications
-
Home Medications
allopurinol 100 mg tablet 100 mg PO DAILY 06/07/17
atorvastatin 40 mg tablet 40 mg PO DAILY 06/07/17
finasteride 5 mg tablet 5 mg PO DAILY 06/07/17
levetiracetam 500 mg tablet 500 mg PO BID #30 tabs 06/07/17
sennosides 8.6 mg tablet (Senokot) 8.6 mg PO DAILYPRN PRN constipation 08/24/24
--- NOTE | 2024-08-25 08:22 | W.PN.HOSP.TC ---
Today's Communication/Plan
-
repeat labs now
SAT/SBT
EEG
MRI
Neurology consult
Funder consult
Assessment / Plan
Assessment / Plan
84-year-old with past medical history significant for seizure episodes falls diagnosed about 10 years ago presenting to the emergency department with seizure episode, tonic-clonic lasting about 10 minutes prior to EMS arrival and patient postictal.
Likely had status epilepticus. Intubated for airway protection on arrival in ED. Patient missed 3 days of keppra from Sunday to Sunday. Restarted Keppra 500 bid on sunday and has been compliant. No anatomical cause of original epilepsy [address] head negative. No obvious toxins, infectious process. No obvious CVA. No etoh use or h/o withdrawal.
PLAN:
1. Status Epilepticus -
- intubated for airway protection
- Keppra 1.5 g given, continue 1 g q 12
- propofol gtt
- eeg in am
- mri in am
- neurology consult
- titrate vent settings per management professor
- supportive measures and iv fluids
Lactic Acidosis post seizure
-cleared
Hyponatremia
metabolic Acidosis
Elevated TG
--*repeat labs now
2. Fever - Post intubation xray with homogeneous opacity in the retrocardiac left lower lobe. Possible considerations include pleural effusion, atelectasis, or pneumonia.
- suspect aspiration in setting of seizure
- viral panel negative
- blood cultures, u/a
- unasyn for now
3. BPH
- continue finasteride
DVT PPX - heparin sq
Code status - Full Code
Anticipated Discharge: > 48 hours
Subjective/Interval History
-
Date of Service: August 25, 2024
intubated, sedated
Objective Data
-
Labs:
Laboratory Results
08/24/24 08/24/24 08/25/24
21:34 22:29 04:46
WBC 16.8 H
Hgb 13.3
Hct 36.6 L
Plt Count 173 D
HCO3 20.4 L
Sodium 138 130 L D
Potassium 4.5 4.0
Chloride 109 H 105
Carbon Dioxide 21 L 14 L*
BUN 27 H 24 H
Creatinine 1.5 H 1.2
Glucose 121 H 128 H
Calcium 8.4 6.6 L* D
08/25/24
10:00
WBC
Hgb
Hct
Plt Count
HCO3
Sodium Pending
Potassium Pending
Chloride Pending
Carbon Dioxide Pending
BUN Pending
Creatinine Pending
Glucose Pending
Calcium Pending
Vital Signs:
Vital Signs
Temp Pulse Resp BP Pulse Ox
99.1 F 58 9 147/67 100
08/25/24 07:22 08/25/24 08:15 08/25/24 08:15 08/25/24 08:00 08/25/24 08:15
I&O
08/24/24 08/25/24 08/26/24
06:59 06:59 06:59
Intake Total 3299.8 / 3299.8
Output Total 405 / 405
Balance 2894.8 / 2894.8
Review of Systems
-
History Source: Patient
All other systems: Reviewed and negative
Physical Exam
-
General: Intubated
HEENT: Atraumatic
Respiratory: Clear to Auscultation; Negative Wheezes
Cardiac: Regular Rhythm and S1/S2
GI: Soft and Nontender
Musculoskeletal: No Edema
Skin: Warm and Dry; Negative Rash
Neuro: Sedated
Psych: Calm
Data Reviewed
-
Diagnostic Radiology: Report Reviewed by me
Labs: Labs Reviewed by me
--- NOTE | 2024-08-25 09:06 | PTOTSP ---
Received order for PT from the ED and reviewed chart, noting pt was intubated in the ED. Pt is not appropriate for skilled PT at this time. Please re-order at a later date post-extubation when stable to begin activity.
--- NOTE | 2024-08-25 10:10 | PTCARENOTE ---
pt having eeg at bedside
--- NOTE | 2024-08-25 10:41 | PTCARENOTE ---
attempted to draw labs as ordered, unsuccessful. iv site leaking. iv team notified after unsuccessful attempt at second peripheral
--- NOTE | 2024-08-25 10:52 | EEGC.RPT ---
Continuous EEG Report
Recording
Start Date of Data Reviewed: 08/25/24
Done with Video Recording: Yes
Report
TECHNICAL REMARKS:��This is a technically satisfactory eighteen channel record employing 21 disc electrodes applied according to a measured international 10-20 electrode placement system.��There were no significant technical difficulties.��The study
was done on a Packet Digital System.
STUDY DURATION: 25 min, 03 sec
MEDICATIONS: Keppra, propofol
CLINICAL HISTORY: This is an 84-year-old man with prolonged seizure encephalopathy. �This study was requested to look for epileptiform activity.
REPORT: �At the onset of the EEG, the patient is comatose. The background activity consists of 3-4 Hz, impersistent, posteriorly dominant, moderate amplitude, symmetric, and rhythmic activity. Continuous generalized, 1-2 Hz, 30-50 uV polymorphic
delta activity was seen.� Stepwise intermittent photic stimulation did not induce additional abnormalities. Hyperventilation was not performed. No epileptiform activity was seen.� Multiple muscle artifacts were present limited precise
characterization of the record.
�
IMPRESSION: �This is an abnormal EEG recorded in, due to severe generalized slowing. This finding indicates diffuse cerebral dysfunction, nonspecific in terms of etiology.
--- NOTE | 2024-08-25 11:39 | CM ---
CM following re: discharge planning.
Discussed in Rounds, reviewed pt's chart, met with pt. Pt's spouse and and her daughter at bedside.
Pt is an 84 year old male, admitted with primary dx of Status Epilepticus, intubated for airway protection. Per Rounds meeting, pt remains intubated, continue supportive care.
Per daughter, pt lives with spouse 2SH, 3 steps to enter has 5 supportive children. 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 No DME, VN or SNF history.
PT and OT will evaluate the pt when clinically appropriate to determine a level of care at discharge.
PCP: Rajwinder Walsh
Pharmacy: [facility]
D/C plan: uncertain at this time and will depend on pt's progress.
CM will follow with discharge plan updates as hospitalization progresses
--- NOTE | 2024-08-25 12:19 | PTCARENOTE ---
Systems reviewed. Pt with cough/gag/corneals. Follows commands intermittently, abdi with generalized weakness. Has remained off sedation since 9am. Pt placed on wean around 1115. Has been tolerating with no resp distress.
[2024-08-25] MEDS: THIAMINE INJECTION 100 MG IV (12:58)
[2024-08-25] MEDS: NICODERM TRANSDERMAL 14 MG TRANSDERM (12:58)
--- NOTE | 2024-08-25 12:58 | RESPNOTE ---
Respiratory: patient extubated per Dr. Dover, without incident, no stridor no wheeze. SpO2 97% on room air. RSBI during PSV 5/5 40% throughout wean was in the 30s.
--- NOTE | 2024-08-25 13:08 | PTCARENOTE ---
pt extubated to room air after being evaluated by Dr Humphrey at bedside.
[2024-08-25 13:14] LABS: Albumin 2.6 g/dl (3.5-5.0); Blood Urea Nitrogen 23 mg/dl (9-20); Calcium 7.7 mg/dl (8.4-10.2); Carbon Dioxide 28 mmol/L (22-30); Chloride 103 mmol/L (98-107); Estimated Creatinine Clearance 52 ml/min; Glucose 120 mg/dl (70-99); Potassium 3.4 mmol/L (3.5-5.1); Sodium 136 mmol/L (135-145); Triglycerides 58 mg/dl (10-149); eGFR > 60.00
[2024-08-25] MEDS: LR 1000 IV (14:05)
[2024-08-25] MEDS: KCL 260 MEQ IV (14:13)
[2024-08-25 14:17] LABS: TSH Reflex To Free T4 0.32 uIU/ml (0.47-4.68)
[2024-08-25] MEDS: SODIUM BICARBONATE IV (14:24)
[2024-08-25 14:47] LABS: Free T4 1.48 ng/dl (0.78-2.19)
--- NOTE | 2024-08-25 17:05 | PTCARENOTE ---
Pt returned from MRI. Tolerated well. Continues with little speech since extubation. MMhhm and repeating words. Will follow some simple commands to squeeze. Lower extremities weaker then upper extremities. IVF continue. Otherwise no changes.
--- NOTE | 2024-08-25 21:04 | PTCARENOTE ---
Pt received at 19:00. Minimal verbal responses, nods y/n appropriately at times. Frequently repeats words from questions asked instead of giving an answer. When asked what his name is, he repeated 'my name', with no answer. Same with birthday, just
repeated 'birthday'. Follows simple commands at times, lifts B/L arms, squeezes hands. Slight lift of B/L legs, pulls and pushes feet against resistance. Pupils 3mm and brisk. RA, pulse ox 96%. Breath sounds coarse, moist intermittent cough, no
sputum noted at this time. SR with 1st degree AVB, HR 60s-70s.No BM, +BS. Bocanegra removed at 16:00, no urine output at this time. B/L FA wound dressings remain intact. Safe environment maintained, call najera within reach, pt repositioned.
--- NOTE | 2024-08-25 22:13 | PTCARENOTE ---
Incontinent x1, saturated. Bladder scanned for 179ml.
[2024-08-26] VITALS (17 sets, daily range): BP systolic 122–172; BP diastolic 56–85; PULSE 81; O2SAT 95; BMI 25.9
[2024-08-26] MEDS: HEPARIN 5000 UNITS SC ×4 (00:32→23:07)
--- NOTE | 2024-08-26 00:37 | PTCARENOTE ---
More consistently following commands, assists with turning. Continues to repeat part of questions or statements, not answering or responding appropriately. Responds to y/n questions appropriately at times.
[2024-08-26 03:33] LABS: % Basophils 0.5 % (0-2); % Immature Granulocytes 0.3 % (0-0.5); % Lymphocytes 8.9 % (20.5-51.1); % Monocytes 5.1 % (1.7-9.3); % Neutrophils 84.2 % (42.2-75.2); Absolute Basophils 0.1 10^3/uL (0-0.2); Absolute Eosinophils 0.2 10^3/uL (0-0.7); Absolute Immature Granulocytes 0.1 10^3/uL (0-0.05); Absolute Lymphocytes 1.3 10^3/uL (1.2-3.4); Absolute Monocytes 0.7 10^3/uL (0.1-0.6); Absolute Neutrophils 12.1 10^3/uL (1.4-6.5); Hematocrit 35.1 % (39.0-52.0); Hemoglobin 12.1 g/dL (13.0-18.0); Mean Corp Hgb Conc. 34.5 g/dL (33.0-37.0); Mean Corpuscular Hgb 32.9 pg (27.0-31.0); Mean Corpuscular Volume 95.4 fL (80.0-94.0); Mean Platelet Volume 11.3 fL (7.4-10.4); Nucleated Red Blood Cells % 0 % (-); Platelet Count 175 10^3/uL (130-400); Red Blood Cell Count 3.68 10^6/uL (4.70-6.10); Red Cell Dist. Width 12.5 % (11.5-14.5); White Blood Cell Count 14.4 10^3/uL (4.8-10.8)
[2024-08-26 03:59] LABS: Blood Urea Nitrogen 19 mg/dl (9-20); Calcium 7.8 mg/dl (8.4-10.2); Carbon Dioxide 21 mmol/L (22-30); Chloride 109 mmol/L (98-107); Estimated Creatinine Clearance 47 ml/min; Glucose 102 mg/dl (70-99); Magnesium 1.8 mg/dl (1.6-2.3); Potassium 3.7 mmol/L (3.5-5.1); Sodium 137 mmol/L (135-145); eGFR 59.63
[2024-08-26] MEDS: LR 1000 IV (04:42)
[2024-08-26] MEDS: UNASYN IV ×2 (04:43→11:06)
--- NOTE | 2024-08-26 06:39 | PTCARENOTE ---
Pt with periods of increased agitation and restlessness. Yelling at staff with attempts to hit staff and climb out of bed. Appropriately provided birthdate and name. Continues with confused conversation/inappropriate words. updated.
--- NOTE | 2024-08-26 07:14 | W.PN.INTV ---
Today's Communication / Plan
Recommendations
Doing well post extubation x 24 hours, stable on RA
Confusion noted, likely delirium, stop all sedation/pain meds
Supportive care
Further neurologic management per team
Complete Augment with stop date x 5 days
Transfer to floors, we will sign off upon transfer
Assessment
-
Patient is a 84-year-old male with history of seizure disorder on Keppra, BPH, HLD presenting to ER for witnessed seizure at home. Reportedly patient had ran out of his Keppra last weekend, missed dosing for total of 3 days. Seizure is noted to
last about 15 minutes, EMS called. Administered 4 mg of Versed and route to the hospital with subsequent improvement of seizure activity. On arrival, patient postictal unable to comply with additional history or questioning. Family notes that he
has not had a seizure for about 10 years. No report of recent fever or illness. No additional history obtained at this time. Of note, medics report when transferring patient, suffered a skin tear to his right forearm. No report of fall or self
injury.
Intubated in ER for unresponsiveness, admitted to ICU.
Acute witnessed generalized seizure
Noncompliance with medication for 3 days
Postictal/unresponsiveness s/p intubation for airway protection
Extubated 08/25/24
Leukocytosis, likely post seizure
Metabolic acidosis
Hypocalcemia
Delirium
Small subacute 3mm CVA
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
Benign prostatic hyperplasia with lower urinary tract symptoms
Pure hypercholesterolemia
Chronic gout of foot
Stage 3a chronic kidney disease
Seizure disorder--Last seizure occurred 7 years ago in 05/2017; none since-on Keppra 500mg BID
Mild cognitive impairment
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
Primary open angle glaucoma (POAG) of both eyes, mild stage
Inguinal hernia Repair (2001)
Bilateral cataract surgery
Cigar smoker--Has been smoking 1 cigar daily for decades, not interested in quitting
Plan
MS improving in terms of wakefulness but he has delirium/confusion noted
D/c all sedation/pain meds
Seizure d/o triggered presumably from noncompliance
Neuro consult obtained, Keppra dose increased
Denies pain at this time.
Pain/sedation: PRN, hold any new doses due to confusion
RASS goals: 0
MRI showing 3mm subacute CVA
Hemodynamically stable, not requiring pressors.
Cardiac history reviewed--HLD
No prior ECHO for review
Resume home meds
Monitor on telemetry
Intubated, airway protection, extubated and doing well 08/25/24
Prior history of lung disease: No history of lung disease
Supplemental O2 as indicated to maintain sats > 89%
CXR/CT reviewed indicating possible LLL consolidation, presumed aspiration
Sputum culture negative
Diet advancement per team
Aspiration precautions, HOB > 30 degrees
Speech therapy eval
GI prophylaxis if indicated--stop if no need pending diet
Creat at baseline, no history of renal disease
Void trials
Follow urine output, critical I/Os
Replete electrolytes as needed
Acid/base status: met acid likely from seizure
Possible aspiration PNA
Started on empiric antibiotics
Cultures sent/negative thus far
De-escalate abx to Augmentin x 5 days
Follow fever trend, WBC count
CBC stable, no signs of bleeding or coagulopathy.
DVT prophylaxis as assessed based on risk, including mechanical SCDs
Can transfuse if indicated for Hb <7, plt < 10
No prior h/o diabetes or thyroid disease
Monitor accuchecks PRN/SS coverage if needed
Can likely transfer to floors, we will sign off upon transfer.
Diagnostic Data
Chest X-Ray: 08/24/24- Endotracheal tube tip approximately 7 cm above the kassi. No pneumothorax. Right lung clear. Homogeneous opacity in the retrocardiac left lower lobe. Possible considerations include pleural effusion, atelectasis, or pneumonia.
CT Scan: HCT 08/24/24- No acute intracranial abnormality noted. No acute intracranial hemorrhage. Mild chronic white matter ischemic change. No mass effect.
Echo:
PFT's:
Reports and relevant images were personally reviewed.
-----
Critical care time 36 mins -- this includes review of history, physical exam, medications, hemodynamic/ventilator parameters, laboratory data, imaging and discussion with house staff, pharmacy, respiratory therapy, tongue presser, and nursing.
Subjective Dataa
Subjective Data
Date of Service:
Date of Service: August 26, 2024
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
Subjective:
No acute events ON, tolerated extubated
MS more awake/confused this AM
Mitts in place
Objective Data
Data Reviewed
Vital Signs / I&O / Oxygen:
Vital Signs
Temp Pulse Resp BP Pulse Ox
98.4 F 71 14 144/61 95
08/26/24 05:46 08/26/24 06:00 08/26/24 06:00 08/26/24 06:00 08/26/24 06:03
Intake and Output
08/25/24 08/26/24 08/27/24
06:59 06:59 06:59
Intake Total 3299.8 / 3594.4 3222.1 / 3222.1
Output Total 405 / 435 370 / 370
Balance 2894.8 / 3159.4 2852.1 / 2852.1
SaO2 [CPAP/PSV] 100
SaO2 [A/C] 100
SaO2 95
Nasal Cannula flow liters per 6
minute
Physical Exam
General: Comfortable and Other (NAD)
HEENT: Normocephalic, Anicteric and Moist Mucous Membranes
Cardiovascular: S1-S2 and Regular Rhythm
Respiratory: Clear and Non-Labored Respirations
GI: Soft, Non Distended and Non Tender
Neurology: Awake, Alert and Other (confused, mitts in place)
Skin: Warm, Dry and Good Color
Labs/Micro/Reports
Lab Data
08/26/24 03:15
08/26/24 03:15
Microbiology
08/24/24 21:33 Blood/Venous Blood Culture - Preliminary
No Growth in 24 hours- Final report to follow
08/24/24 21:33 Blood/Venous Blood Culture - Preliminary
No Growth in 24 hours- Final report to follow
08/24/24 22:30 Sputum Gram Stain - Preliminary
08/24/24 21:34 Nasal Swab Influenza Types A & B (SHAHID) - Final
Negative for Influenza A & B, NAAT
Negative results must be combined with clinical observations
and patient history.
Nucleic Acid Amplification test (NAAT)performed on the
MMIT platform.
[2024-08-26] MEDS: THIAMINE INJECTION 100 MG IV (08:05)
[2024-08-26] MEDS: KEPPRA 1000 MG IV (08:05)
--- NOTE | 2024-08-26 08:12 | W.PN.HOSP.TC ---
Today's Communication/Plan
-
PT/OT/ST
F/U further Neurology recommendations
start Aspirin
continue Keppra
Assessment / Plan
Assessment / Plan
84-year-old with past medical history significant for seizure episodes falls diagnosed about 10 years ago presenting to the emergency department with seizure episode, tonic-clonic lasting about 10 minutes prior to EMS arrival and patient postictal.
Likely had status epilepticus. Intubated for airway protection on arrival in ED. Patient missed 3 days of keppra from Sunday to Sunday. Restarted Keppra 500 bid on sunday and has been compliant. No anatomical cause of original epilepsy [address] head negative. No obvious toxins, infectious process. No obvious CVA. No etoh use or h/o withdrawal.
MRI
IMPRESSION:
3 mm focus of diffusion hyperintense signal within the right centrum semiovale with pseudonormalization of the ADC, likely a small subacute infarction.
Moderate global parenchymal volume loss with sequelae of moderate small vessel ischemic disease. There is a small focus of encephalomalacia within the posterior left cerebellar hemisphere with a small focus of prior microhemorrhage.
There is an 8 mm T2/FLAIR hyperintense cutaneous focus along the posterior left temporal scalp, incompletely characterized on this examination of possible small cutaneous lesion. Recommend direct visualization.
PLAN:
1. Status Epilepticus -
- intubated for airway protection; extubated on HD 1 (08/25)
- Keppra 1.5 g given, continue 1 g q 12
- EEG without active seizure, MRI results above (see below)
- neurology consult appreciated
- PT/OT/ST
- IVF until taking PO
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
-reviewing results with Neurology
-start aspirin
Lactic Acidosis post seizure
-cleared
2. Fever - Post intubation xray with homogeneous opacity in the retrocardiac left lower lobe. Possible considerations include pleural effusion, atelectasis, or pneumonia.
- suspect aspiration in setting of seizure
- viral panel negative
- unasyn for now (day 2)
3. BPH
- continue finasteride
DVT PPX - heparin sq
Code status - Full Code
Anticipated Discharge: 24 - 48 hours
Subjective/Interval History
-
Date of Service: August 26, 2024
more awake and alert today
Objective Data
-
Labs:
Laboratory Results
08/26/24
03:15
WBC 14.4 H
Hgb 12.1 L
Hct 35.1 L
Plt Count 175
Sodium 137
Potassium 3.7
Chloride 109 H
Carbon Dioxide 21 L
BUN 19
Creatinine 1.2
Glucose 102 H
Calcium 7.8 L
Vital Signs:
Vital Signs
Temp Pulse Resp BP Pulse Ox
98.2 F 71 14 144/61 95
08/26/24 07:42 08/26/24 06:00 08/26/24 06:00 08/26/24 06:00 08/26/24 06:03
I&O
08/25/24 08/26/24 08/27/24
06:59 06:59 06:59
Intake Total 3299.8 / 3594.4 3222.1 / 3222.1
Output Total 405 / 435 370 / 370
Balance 2894.8 / 3159.4 2852.1 / 2852.1
Review of Systems
-
Unable to obtain full review of systems at this time due to: Other (patient confused)
History Source: Patient
Physical Exam
-
General: No Apparent Distress
HEENT: PERRLA
Respiratory: Clear to Auscultation; Negative Wheezes
Cardiac: Regular Rhythm and S1/S2
GI: Soft and Nontender
Musculoskeletal: No Edema
Skin: Warm and Dry; Negative Rash
Neuro: Awake, Alert and Other (patient confused, denied having a seizure. when asked to perform exam said 'no')
Psych: Agitated
Data Reviewed
-
Diagnostic Radiology: Report Reviewed by me
Labs: Labs Reviewed by me
--- NOTE | 2024-08-26 09:56 | PTOTSP ---
Speech Therapy Evaluation:
Pt presents with clinical signs of oropharyngeal dysphagia, likely acute in nature related to seizure, subacute infarction within the right centrum semiovale, and recent intubation/extubation (1 day). Pt demonstrated subtle throat clear in 1/5
trials of thin liquids via straw, though no overt s/sx of aspiration with ice chips, thin liquids via tsp, or puree. Thin liquids via cup/3oz swallow screen deferred given b/l soft wrist restraints limiting ability to self-feed. Pt remains at high
risk of aspiration and related complications given mentation, inability to self-feed (when restraints placed), and tenuous respiratory status s/p extubation, though pt stable on RA.
Recommend:
1. Initiate CAUTIOUS IDDSI 4 (puree) and thin liquid diet
2. Medications crushed in puree
3. 1:1 assistance and supervision with PO intake. Low threshold for NPO if worsening in respiratory status, worsening in chest imaging, and if concerned for aspiration
4. Strict aspiration precautions: small bites/sips; slow rate; alternate solids/liquids; upright all oral intake; only feed when awake/alert; thorough oral care
5. PILL PACKER to follow re: tolerance of diet, need for further modifications/advancements, and to determine if instrumental assessment warranted.
[2024-08-26] MEDS: PROTONIX IV IV (11:05)
[2024-08-26] MEDS: NICODERM TRANSDERMAL TRANSDERM (11:05)
[2024-08-26] MEDS: LOW STRENGTH ASPIRIN 81 MG PO (11:47)
[2024-08-26] MEDS: AUGMENTIN 875 MG/125 MG 1 TABLET PO ×2 (12:25→23:07)
--- NOTE | 2024-08-26 12:33 | W.PN.NEURO.1 ---
Today's Communication / Plan
-
.
Subjective/Objective
Subjective Data
Date of Service: August 26, 2024
Neurology follow-up note.
24-hour events. Extubated, intermittently hypertensive, no recurrent seizures. According to patient's spouse patient has been irritable and disinhibited.
Brain MRI showed subacute right centrum semiovale infarct.
Carotid Doppler ultrasound�no hemodynamically significant stenosis.
Labs: WBCs�14.4, platelets�175, free T4, LDL<30
TTE-unremarkable.
PMH: Epilepsy, gout, left leg SCC, CKD, BPH, open angle glaucoma
PSH: Hernia surgery, bilateral cataract surgery, Mohs surgery
SH:, retired from ; active smoker, consumes one shot of alcohol nightly, independent in AIDLs.
FH: Not contributory to current presentation
All:NKDA
ROS: Negative for headache, change in vision, strength and sensation.
General: In no acute distress.
Cardio: Regular rate and rhythm without murmur. Extremities are without cyanosis or edema.
Neuro:
Mental Status: Awake, oriented to name, age, location, person. Impaired attention. Labile mood. Follows simple requests consistently. Mildly disinhibited.
Cranial Nerves: Orthophoric primary gaze. Pupils are equally round, surgical. Extraocular movement intact. No facial weakness or dysarthria.
Motor: No pronator or leg drift.
Reflexes: Grasp bilaterally
Sensory: Moderate exam due to impaired attention
Coordination: No tremors myoclonic movements
Gait: deferred
Assessment and Plan:
I. Subacute right centrum semiovale infarct. Likely etiology embolic vs microvascular angiopathy
II. Status post provoked seizure
III. Multifactorial encephalopathy, improved
IV. Fever, resolved
-Seizure precautions
-Blood pressure goal�normotension
-Switch Keppra to Depakote. Lorazepam 2 mg IV as needed for GTC's lasting for 2 hours
-Continue thiamine 100mg QD IV
-Continue DAPT for 3 weeks
-Cardiology consult�JM/ILR
-No driving for 6 months
-The case was discussed with patient's spouse and daughter present at bedtime.
I personally reviewed all radiology and labs along with past medical records pertinent to current medical problems. Total time spent in patient care is 45 minutes.
Thank you for allowing us to participate in the care of this patient. We will continue to follow. Please do not hesitate to contact us with any questions or concerns.
Objective Data
Vital Signs
Temp Pulse Resp BP Pulse Ox
36.5 C 80 18 169/85 95
08/26/24 11:36 08/26/24 11:37 08/26/24 11:37 08/26/24 11:37 08/26/24 06:03
Lab Results
08/26/24 03:15
08/26/24 03:15
PT 13.5 Sec (11.4-14.6) 08/24/24 16:33
INR 1.00 08/24/24 16:33
APTT 23.9 Sec (23.4-35.0) 08/24/24 16:33
Sodium 137 mmol/L (135-145) 08/26/24 03:15
Potassium 3.7 mmol/L (3.5-5.1) 08/26/24 03:15
BUN 19 mg/dl (9-20) 08/26/24 03:15
Glucose 102 mg/dl (70-99) H 08/26/24 03:15
Calcium 7.8 mg/dl (8.4-10.2) L 08/26/24 03:15
Phosphorus 2.2 mg/dl (2.5-4.5) L 08/25/24 04:46
LDL Cholesterol Direct < 30 mg/dl 08/25/24 04:46
LDL Cholesterol, Calc mg/dl 08/25/24 04:46
Patient Allergies
No Known Allergies Allergy (Verified 02/24/23 20:19)
Vital Signs and Labs
-
Vital Signs and Labs:
Vital Signs
Temp Pulse Resp BP Pulse Ox
36.5 C 80 18 169/85 95
08/26/24 11:36 08/26/24 11:37 08/26/24 11:37 08/26/24 11:37 08/26/24 06:03
Lab Results
08/26/24 03:15
08/26/24 03:15
PT 13.5 Sec (11.4-14.6) 08/24/24 16:33
INR 1.00 08/24/24 16:33
APTT 23.9 Sec (23.4-35.0) 08/24/24 16:33
Sodium 137 mmol/L (135-145) 08/26/24 03:15
Potassium 3.7 mmol/L (3.5-5.1) 08/26/24 03:15
BUN 19 mg/dl (9-20) 08/26/24 03:15
Glucose 102 mg/dl (70-99) H 08/26/24 03:15
Calcium 7.8 mg/dl (8.4-10.2) L 08/26/24 03:15
Phosphorus 2.2 mg/dl (2.5-4.5) L 08/25/24 04:46
LDL Cholesterol Direct < 30 mg/dl 08/25/24 04:46
LDL Cholesterol, Calc mg/dl 08/25/24 04:46
Medications
-
Medications:
Generic Name Dose Route Start Last Admin
Trade Name Freq PRN Reason Stop Dose Admin
Acetaminophen 650 mg 08/24/24 20:34 08/25/24 01:09
Acetaminophen 650 Mg Rectal Suppository RECTAL 09/21/24 20:33 650 mg
Q4HPRN PRN Administration
CALVO, mild pain, or temp >100.4F
Acetaminophen 650 mg 08/26/24 12:07
Acetaminophen 325 Mg Tablet PO 09/21/24 20:33
Q4HPRN PRN
CALVO, mild pain, or temp >100.4F
Allopurinol 100 mg 08/26/24 12:07
Allopurinol 100 Mg Tablet PO 09/22/24 07:59
DAILY AARON
Amoxicillin/Clavulanate Potassium 1 tablet 08/26/24 12:00 08/26/24 12:25
Amoxicillin (875 Mg)/Clavulanate (125 Mg) Tablet PO 08/29/24 12:01 1 tablet
Q12H AARON Administration
Aspirin 81 mg 08/26/24 09:00 08/26/24 11:47
Aspirin 81 Mg Chewable Tablet PO 09/23/24 08:59 81 mg
DAILY AARON Administration
Aspirin 300 mg 08/26/24 08:28
Aspirin 300 Mg Rectal Suppository RECTAL 09/23/24 08:27
DAILYPRN PRN
if cannot take PO
Atorvastatin Calcium 20 mg 08/26/24 18:00
Atorvastatin (Lipitor) 20 Mg Tablet PO 09/23/24 17:59
QPM AARON
Finasteride 5 mg 08/26/24 12:08
Finasteride 5 Mg Tablet PO 09/22/24 07:59
DAILY AARON
Heparin Sodium 5,000 units 08/25/24 00:00 08/26/24 08:04
Heparin 5,000 Units/Ml 1 Ml Vial SC 09/22/24 00:00 5,000 units
Q8 AARON Administration
Levetiracetam 1,000 mg 08/25/24 04:30 08/26/24 08:05
Levetiracetam (100 Mg/Ml) 500 Mg/5 Ml Vial IV 09/22/24 04:29 1,000 mg
Q12 AARON Administration
Nicotine 14 mg 08/25/24 11:00 08/26/24 11:05
Nicotine 14 Mg Patch TRANSDERM 09/22/24 10:59 Not Given
DAILY AARON
Ondansetron HCl 4 mg 08/24/24 20:34
Ondansetron 4 Mg/2 Ml Vial IV 09/21/24 20:33
Q6HPRN PRN
NAUSEA/VOMITING
Polyethylene Glycol 17 grams 08/26/24 12:08
Polyethylene Glycol Powder 17 Grams Packet PO 09/22/24 07:59
DAILY AARON
Sodium Chloride 1 ml 08/24/24 20:48
Nss (Pf) 10 Ml Vial For Ativan 2 Mg Dose IV 09/21/24 20:47
Q4HPRN PRN
IV LORAZEPAM DILUTION
Sodium Chloride 0 flush 08/25/24 01:00
Sodium Chloride 0.9% (Flush) Syringe IV 09/22/24 00:59
PER PROTOCOL AARON
Thiamine HCl 100 mg 08/25/24 11:00 08/26/24 08:05
Thiamine (100 Mg/Ml) 2 Ml Vial IV 08/27/24 08:01 100 mg
DAILY AARON Administration
Home Medications
-
Home Medications
allopurinol 100 mg tablet 100 mg PO DAILY Gout 06/07/17
atorvastatin 40 mg tablet 40 mg PO DAILY High Cholesterol 06/07/17
finasteride 5 mg tablet 5 mg PO DAILY Urinary Issue 06/07/17
levetiracetam 500 mg tablet 500 mg PO BID #30 tabs 06/07/17
sennosides 8.6 mg tablet (Senokot) 8.6 mg PO DAILYPRN PRN constipation 08/24/24
--- NOTE | 2024-08-26 14:00 | PTCARENOTE ---
pt had bedside echo
--- NOTE | 2024-08-26 16:14 | CM ---
CM following re: discharge planning.
Discussed in Rounds, reviewed pt's chart, met with pt. Pt's spouse and and her daughter at bedside. Per Rounds meeting, pt successfully extubated, continue supportive care.
PT and OOT evaluations noted - SNF level of care recommended. Both pt and his family are aware. A list of SNFs provided to pt and his family.
D/C plan: preferred SNF.
CM will follow with discharge plan updates as hospitalization progresses
--- NOTE | 2024-08-26 17:10 | PTCARENOTE ---
pt being tx to 420, called and made aware of tx. Pt belongings from room sent with pt. Report called to Domenico prior to transfer. No questions at time of report.
[2024-08-26] MEDS: LIPITOR 20 MG PO (17:19)
--- NOTE | 2024-08-26 17:45 | CON.CAR ---
Addendum entered and electronically signed by Davonte Mclaughlin MD 08/26/24 17:53:
I saw and examined the patient.
The ASPHALT HEATER OPERATOR's note was reviewed and I agree with the note.
Comment: 84-year-old male with a past medical history significant for epilepsy who presented to the emergency department in the setting of seizure activity. Prior to admission, he ran out of Keppra and had not taken it for 3 days. MRI demonstrated
a small subacute infarction. Cardiology was consulted by neurology for JM/possible ILR placement.
However, Mr Edmonds adamantly refused any further procedure at this time. He does appear competent and able to answer questions appropriately.
- Please contact if he is agreeable
Original Note:
Consultation
Consultation Request
Date/Time Consultation Requested: 08/26/2024 17:30
Date/Time Consultation Performed: 08/26/2024 17:45
Requesting Provider: Dr. Viera
Performing Provider: JOANIE Fulton for Dr. Mclaughlin
Reason for Consultation: CVA
Medical History
-
Chief Complaint: Status epilepticus
History of Present Illness:
Navarro Edmonds is an 84-year-old male with a past medical history significant for epilepsy who presented to the emergency department in the setting of seizure activity. Prior to admission, he ran out of Keppra and had not taken it for 3 days. MRI
demonstrated a small subacute infarction. Cardiology was consulted by neurology for JM/possible ILR placement. Mr. Edmonds appears mild cognitively impaired but appears competent. He is able to make his needs known and is awake, alert, and
oriented. He is not interested in any procedures at this time.
Past Medical History
Past Medical History: Seizures and Other (BPH, gout)
Social History
Tobacco: Non-Smoker
Alcohol: None
Personal:
Living: With Family
Employment: Retired
Family History
Family History: Reviewed & Not Pertinent
Allergies / Home Medications
Allergy/AdvReac Type Severity Reaction Status Date / Time
No Known Allergies Allergy Verified 02/24/23 20:19
�Medication �Instructions �Recorded �Confirmed �Type
allopurinol 100 mg tablet 100 mg PO DAILY Gout 06/07/17 08/24/24 History
atorvastatin 40 mg tablet 40 mg PO DAILY High Cholesterol 06/07/17 08/24/24 History
finasteride 5 mg tablet 5 mg PO DAILY Urinary Issue 06/07/17 08/24/24 History
levetiracetam 500 mg tablet 500 mg PO BID #30 tabs 06/07/17 08/24/24 Rx
sennosides 8.6 mg tablet (Senokot) 8.6 mg PO DAILYPRN PRN constipation 08/24/24 08/24/24 History
Review of Systems
-
History Source: Patient
All other systems: Negative unless noted
Constitutional: No Symptoms
EENT: No Symptoms
Respiratory: No Symptoms
Cardiac: No Symptoms
Abdomen/GI: No Symptoms
: No Symptoms
Musculoskeletal: No Symptoms
Skin: No Symptoms
Neurological: No Symptoms
Endocrine: No Symptoms
Hematologic/Lymphatic: No Symptoms
Physical Exam
Vital Signs
Temp Pulse Resp BP Pulse Ox
97.9 F 79 18 156/80 96
08/26/24 17:28 08/26/24 17:28 08/26/24 17:28 08/26/24 17:28 08/26/24 17:28
Lab Results
08/26/24 03:15
08/26/24 03:15
Physical Exam
General: Well Developed, Well Nourished, No Apparent Distress and Comfortable
HEENT: Normocephalic, Anicteric and Moist Mucous Membranes
Respiratory: Clear and Non Labored Respirations
Cardiac: S1/S2 and Regular Rhythm
Breast: Deferred by me
GI: Soft, Non Tender, Non Distended and Normal Bowel Sounds
Rectal: Deferred by Provider
Genito-urinary: No Costovertebral Tender
Musculoskeletal: No Clubbing, No Cyanosis and No Edema
Skin: Warm and Dry
Neuro: Awake and Alert
Hematologic/Lymphatic: No Lymphadenopathy
Psych: Calm
Impression / Plan
-
Subacute CVA
-Neurology following
-JM declined by patient
-ILR declined by patient
-There is no telemetry available for my review
-Echocardiogram did not have any acute findings
Status epilepticus, requiring intubation
-Self discontinued Keppra when he ran out, neurology following
Data Reviewed
-
EKG: Report Reviewed by me
Medical Tests (Nuc Med, Echo etc): Report Reviewed by me
Labs: Labs Reviewed by me
Old Records: Reviewed
[2024-08-26] MEDS: PLAVIX 75 MG PO (17:47)
[2024-08-26] MEDS: DEPACON 55 MG IV (20:57)
--- NOTE | 2024-08-27 03:15 | DOWNTIME ---
There was a [employer] Client [employer] Builder Downtime on 08/27/2024 from 0100 to 08/27/2023 at 0235 . Downtime documentation of patient's care, including medication administrations, has been reconciled in the electronic record per guidelines. Refer to the
patient's paper chart under the miscellaneous tab to see printed paper medication records and downtime forms.
[2024-08-27 03:53] VITALS: BP 141/94
[2024-08-27 05:06] VITALS: BMI 26.0
[2024-08-27 06:27] LABS: Hemoglobin 11.5 g/dL (13.0-18.0); Mean Corp Hgb Conc. 34.8 g/dL (33.0-37.0); Mean Corpuscular Hgb 32.8 pg (27.0-31.0); Mean Platelet Volume 11.7 fL (7.4-10.4); Platelet Count 176 10^3/uL (130-400); Red Blood Cell Count 3.51 10^6/uL (4.70-6.10); Red Cell Dist. Width 12.5 % (11.5-14.5); White Blood Cell Count 9.8 10^3/uL (4.8-10.8)
[2024-08-27 07:01] LABS: Blood Urea Nitrogen 15 mg/dl (9-20); Calcium 7.9 mg/dl (8.4-10.2); Carbon Dioxide 24 mmol/L (22-30); Chloride 109 mmol/L (98-107); Estimated Creatinine Clearance 52 ml/min; Glucose 101 mg/dl (70-99); Magnesium 1.9 mg/dl (1.6-2.3); Potassium 3.7 mmol/L (3.5-5.1); Sodium 138 mmol/L (135-145); Triglycerides 68 mg/dl (10-149); eGFR > 60.00
[2024-08-27] MEDS: NICODERM TRANSDERMAL 14 MG TRANSDERM (07:50)
[2024-08-27] MEDS: THIAMINE INJECTION 100 MG IV (07:51)
[2024-08-27 07:52] VITALS: BP 151/84
[2024-08-27] MEDS: PLAVIX 75 MG PO (07:52)
[2024-08-27] MEDS: LOW STRENGTH ASPIRIN 81 MG PO (07:52)
[2024-08-27] MEDS: MIRALAX 17 GRAMS PO (07:52)
[2024-08-27] MEDS: PROSCAR 5 MG PO (07:52)
[2024-08-27] MEDS: DEPACON 55 MG IV (07:53)
[2024-08-27] MEDS: ZYLOPRIM 100 MG PO (07:53)
[2024-08-27] MEDS: HEPARIN 5000 UNITS SC ×2 (07:53→15:48)
--- NOTE | 2024-08-27 08:20 | PTOTSP ---
Speech Language Pathology
Pt seen for cognitive-linguistic evaluation via the [place] Cognitive Assessment (MOCA), version 7.3. Pt with a score of 12/30 where normal range is 26-30. Pt with mod-severe cognitive deficits. Poor awareness of deficits noted, with pt arguing
that he did not have a seizure or a stroke. Family present towards end of session when this was discussed again, and he seemed to be more receptive to family telling him this.
Pt also seen for dysphagia tx. Seen with thin liquids via single and consecutive sips, puree, and regular solids. Adequate mastication, bolus formation, and A-P transit noted with no oral residue. No overt signs of aspiration.
Recommend:
(1) Upgrade to regular solids/thin liquids
(2) Aspiration precautions: sit upright, eliminate distractions, slow rate
(3) Meds as tolerated
(4) WORKERS COMPENSATION CLAIMS EXAMINER to continue to follow to ensure diet tolerance and for cognitive-linguistic tx.
(5) Would benefit from acute rehab at discharge for intensive multidisciplinary therapy given subacute CVA with indepedent level of function prior to hospitalization
--- NOTE | 2024-08-27 10:50 | W.PN.HOSP.TC ---
Today's Communication/Plan
-
acute rehab consult
cards reconsulted
Assessment / Plan
Assessment / Plan
84-year-old with past medical history significant for seizure episodes falls diagnosed about 10 years ago presenting to the emergency department with seizure episode, tonic-clonic lasting about 10 minutes prior to EMS arrival and patient postictal.
Likely had status epilepticus. Intubated for airway protection on arrival in ED. Patient missed 3 days of keppra from Sunday to Sunday. Restarted Keppra 500 bid on sunday and has been compliant. No anatomical cause of original epilepsy [address] head negative. No obvious toxins, infectious process. No obvious CVA. No etoh use or h/o withdrawal.
MRI
IMPRESSION:
3 mm focus of diffusion hyperintense signal within the right centrum semiovale with pseudonormalization of the ADC, likely a small subacute infarction.
Moderate global parenchymal volume loss with sequelae of moderate small vessel ischemic disease. There is a small focus of encephalomalacia within the posterior left cerebellar hemisphere with a small focus of prior microhemorrhage.
There is an 8 mm T2/FLAIR hyperintense cutaneous focus along the posterior left temporal scalp, incompletely characterized on this examination of possible small cutaneous lesion. Recommend direct visualization.
TTE
CONCLUSIONS
Normal left ventricular size, wall thickness and systolic function.
LV ejection fraction is 55-60% by visual assessment. Normal diastolic function.
No regional wall motion abnormalities are seen.
Normal right ventricular size and function.
No significant valvular disease.
Estimated pulmonary artery pressure of 25 mmHg, assuming a right atrial
pressure of 3 mmHg.
Small pericardial effusion in the anterior space.
No obvious thrombus seen.
No prior study available for comparison.
PLAN:
1. Status Epilepticus -
- intubated for airway protection; extubated on HD 1 (08/25)
- Keppra 1.5 g given, continue 1 g q 12. Agitation on Keppra --> transitioned to Depakote and improved this morning
- EEG without active seizure, MRI results above (see below)
- neurology consult appreciated
- PT/OT/ST -->. acute rehab consulted
- advanced diet
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
-Asa/plavix
- patient now willing to undergo recommended cardiac procedures, cardiology reconsutled
Lactic Acidosis post seizure
-cleared
2. Fever - Post intubation xray with homogeneous opacity in the retrocardiac left lower lobe. Possible considerations include pleural effusion, atelectasis, or pneumonia.
- suspect aspiration in setting of seizure
- viral panel negative
-afebrile 48 hours
- continue 7 day course of Augmentin
3. BPH
- continue finasteride
DVT PPX - heparin sq
Code status - Full Code
Anticipated Discharge: 24 - 48 hours
Subjective/Interval History
-
Date of Service: August 27, 2024
feeling much better today
more himself per family, more calm
Objective Data
-
Labs:
Laboratory Results
08/27/24 08/27/24
05:57 05:58
WBC 9.8
Hgb 11.5 L
Hct 33.0 L
Plt Count 176
Sodium 138
Potassium 3.7
Chloride 109 H
Carbon Dioxide 24
BUN 15
Creatinine 1.1
Glucose 101 H
Calcium 7.9 L
Vital Signs:
Vital Signs
Temp Pulse Resp BP Pulse Ox
97.9 F 71 18 151/84 96
08/27/24 07:52 08/27/24 07:52 08/27/24 07:52 08/27/24 07:52 08/27/24 08:00
I&O
08/26/24 08/27/24 08/28/24
06:59 06:59 06:59
Intake Total 3222.1 / 3302.1 820 / 820
Output Total 370 / 370 750 / 750
Balance 2852.1 / 2932.1 70 / 70
Review of Systems
-
History Source: Patient
All other systems: Reviewed and negative
Physical Exam
-
General: No Apparent Distress
HEENT: PERRLA
Respiratory: Clear to Auscultation; Negative Wheezes
Cardiac: Regular Rhythm and S1/S2
GI: Soft and Nontender
Musculoskeletal: No Edema
Skin: Warm and Dry; Negative Rash
Neuro: Awake, Alert and AO x 3
Psych: Calm
Data Reviewed
-
Diagnostic Radiology: Report Reviewed by me
Labs: Labs Reviewed by me
[2024-08-27 11:30] VITALS: BP 144/75
[2024-08-27] MEDS: AUGMENTIN 875 MG/125 MG 1 TABLET PO (11:38)
--- NOTE | 2024-08-27 13:10 | CM ---
Addendum entered by Marie Contreras 08/27/24 13:14:
Patient seen bedside with family, discussed PT recommendation of acute rehab, PMR consulted. Family agreeable to acute rehab, would like referral to [facility], [facility]. CM will continue to follow for all discharge planning needs.
Plan; PMR consulted, referral sent to [facility].
Original Note:
CM reviewed preeti
--- NOTE | 2024-08-27 13:40 | W.PN.NEURO.1 ---
Today's Communication / Plan
-
.
Subjective/Objective
Subjective Data
Date of Service: August 27, 2024
Neurology follow-up note.
Mr. Edmonds reports no complaints. He is eager to go home.
No reports of agitation. Mr. Edmonds reconsidered JM/ILR
MAR�no sedatives or antipsychotics were given.
Brain MRI - subacute right centrum semiovale infarct.
Carotid Doppler ultrasound�no hemodynamically significant stenosis.
Labs: WBCs�14.4, platelets�175, free T4, LDL<30
TTE-unremarkable.
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
PSH: Hernia surgery, bilateral cataract surgery, Mohs surgery
SH:, retired from ; active smoker, consumes one shot of alcohol nightly, independent in AIDLs.
FH: Not contributory to current presentation
All:NKDA
ROS: Negative for headache, change in vision, strength and sensation.
General: In no acute distress.
Cardio: Regular rate and rhythm without murmur. Extremities are without cyanosis or edema.
Neuro:
Mental Status: Awake, oriented to name, age, location, person. Impaired attention. Follows simple requests consistently.
Cranial Nerves: Orthophoric primary gaze. Pupils are equally round, surgical. Extraocular movement intact. No facial weakness or dysarthria.
Motor: No pronator or leg drift.
Reflexes: Grasp bilaterally
Sensory: Moderate exam due to impaired attention
Coordination: No tremors myoclonic movements
Gait: deferred
Assessment and Plan:
I. Subacute right centrum semiovale infarct. Likely etiology embolic vs microvascular angiopathy
II. Status post provoked seizure
III. Multifactorial encephalopathy, improved
IV. Fever, resolved
-Seizure precautions
-Blood pressure goal�normotension
-Continue Depakote 500 mg twice daily with close monitoring of platelets
-Continue thiamine 100mg QD po
-Continue DAPT for 3 weeks
-Plan for JM�ILR
-No driving for 6 months
-Outpatient neurology follow-up
-The case was discussed with patient's daughter present at bedside
-Please recall neurology service with any questions or concerns.
I personally reviewed all radiology and labs along with past medical records pertinent to current medical problems. Total time spent in patient care is 3 minutes.
Thank you for allowing us to participate in the care of this patient. Please do not hesitate to contact us with any questions or concerns
Objective Data
Vital Signs
Temp Pulse Resp BP Pulse Ox
36.5 C 78 18 144/75 97
08/27/24 11:30 08/27/24 11:30 08/27/24 11:30 08/27/24 11:30 08/27/24 11:30
Lab Results
08/27/24 05:58
08/27/24 05:57
PT 13.5 Sec (11.4-14.6) 08/24/24 16:33
INR 1.00 08/24/24 16:33
APTT 23.9 Sec (23.4-35.0) 08/24/24 16:33
Sodium 138 mmol/L (135-145) 08/27/24 05:57
Potassium 3.7 mmol/L (3.5-5.1) 08/27/24 05:57
BUN 15 mg/dl (9-20) 08/27/24 05:57
Glucose 101 mg/dl (70-99) H 08/27/24 05:57
Calcium 7.9 mg/dl (8.4-10.2) L 08/27/24 05:57
Phosphorus 2.2 mg/dl (2.5-4.5) L 08/25/24 04:46
LDL Cholesterol Direct < 30 mg/dl 08/25/24 04:46
LDL Cholesterol, Calc mg/dl 08/25/24 04:46
Patient Allergies
No Known Allergies Allergy (Verified 02/24/23 20:19)
Vital Signs and Labs
-
Vital Signs and Labs:
Vital Signs
Temp Pulse Resp BP Pulse Ox
36.6 C 82 18 142/83 98
08/27/24 15:34 08/27/24 15:34 08/27/24 15:34 08/27/24 15:34 08/27/24 15:34
Lab Results
08/27/24 05:58
08/27/24 05:57
PT 13.5 Sec (11.4-14.6) 08/24/24 16:33
INR 1.00 08/24/24 16:33
APTT 23.9 Sec (23.4-35.0) 08/24/24 16:33
Sodium 138 mmol/L (135-145) 08/27/24 05:57
Potassium 3.7 mmol/L (3.5-5.1) 08/27/24 05:57
BUN 15 mg/dl (9-20) 08/27/24 05:57
Glucose 101 mg/dl (70-99) H 08/27/24 05:57
Calcium 7.9 mg/dl (8.4-10.2) L 08/27/24 05:57
Phosphorus 2.2 mg/dl (2.5-4.5) L 08/25/24 04:46
LDL Cholesterol Direct < 30 mg/dl 08/25/24 04:46
LDL Cholesterol, Calc mg/dl 08/25/24 04:46
Medications
-
Medications:
Generic Name Dose Route Start Last Admin
Trade Name Freq PRN Reason Stop Dose Admin
Acetaminophen 650 mg 08/24/24 20:34 08/25/24 01:09
Acetaminophen 650 Mg Rectal Suppository RECTAL 09/21/24 20:33 650 mg
Q4HPRN PRN Administration
CALVO, mild pain, or temp >100.4F
Acetaminophen 650 mg 08/26/24 12:07
Acetaminophen 325 Mg Tablet PO 09/21/24 20:33
Q4HPRN PRN
CALOV, mild pain, or temp >100.4F
Allopurinol 100 mg 08/26/24 12:07 08/27/24 07:53
Allopurinol 100 Mg Tablet PO 09/22/24 07:59 100 mg
DAILY AARON Administration
Amoxicillin/Clavulanate Potassium 1 tablet 08/26/24 12:00 08/27/24 11:38
Amoxicillin (875 Mg)/Clavulanate (125 Mg) Tablet PO 08/29/24 12:01 1 tablet
Q12H AARON Administration
Aspirin 81 mg 08/26/24 09:00 08/27/24 07:52
Aspirin 81 Mg Chewable Tablet PO 09/23/24 08:59 81 mg
DAILY AARON Administration
Aspirin 300 mg 08/26/24 08:28
Aspirin 300 Mg Rectal Suppository RECTAL 09/23/24 08:27
DAILYPRN PRN
if cannot take PO
Atorvastatin Calcium 20 mg 08/26/24 18:00 08/27/24 17:28
Atorvastatin (Lipitor) 20 Mg Tablet PO 09/23/24 17:59 20 mg
QPM AARON Administration
Clopidogrel Bisulfate 75 mg 08/26/24 18:00 08/27/24 07:52
Clopidogrel 75 Mg Tablet PO 09/15/24 08:01 75 mg
DAILY AARON Administration
Divalproex Sodium 500 mg 08/27/24 20:00
Divalproex 500 Mg Delayed Release (12 Hr) Tablet PO 09/24/24 19:59
BID AARON
Finasteride 5 mg 08/26/24 12:08 08/27/24 07:52
Finasteride 5 Mg Tablet PO 09/22/24 07:59 5 mg
DAILY AARON Administration
Heparin Sodium 5,000 units 08/25/24 00:00 08/27/24 15:48
Heparin 5,000 Units/Ml 1 Ml Vial SC 09/22/24 00:00 5,000 units
Q8 AARON Administration
Nicotine 14 mg 08/25/24 11:00 08/27/24 07:50
Nicotine 14 Mg Patch TRANSDERM 09/22/24 10:59 14 mg
DAILY AARON Administration
Ondansetron HCl 4 mg 08/24/24 20:34
Ondansetron 4 Mg/2 Ml Vial IV 09/21/24 20:33
Q6HPRN PRN
NAUSEA/VOMITING
Polyethylene Glycol 17 grams 08/26/24 12:08 08/27/24 07:52
Polyethylene Glycol Powder 17 Grams Packet PO 09/22/24 07:59 17 grams
DAILY AARON Administration
Sodium Chloride 1 ml 08/24/24 20:48
Nss (Pf) 10 Ml Vial For Ativan 2 Mg Dose IV 09/21/24 20:47
Q4HPRN PRN
IV LORAZEPAM DILUTION
Sodium Chloride 0 flush 08/25/24 01:00
Sodium Chloride 0.9% (Flush) Syringe IV 09/22/24 00:59
PER PROTOCOL AARON
Home Medications
-
Home Medications
allopurinol 100 mg tablet 100 mg PO DAILY Gout 06/07/17
atorvastatin 40 mg tablet 40 mg PO DAILY High Cholesterol 06/07/17
finasteride 5 mg tablet 5 mg PO DAILY Urinary Issue 06/07/17
levetiracetam 500 mg tablet 500 mg PO BID #30 tabs 06/07/17
sennosides 8.6 mg tablet (Senokot) 8.6 mg PO DAILYPRN PRN constipation 08/24/24
--- NOTE | 2024-08-27 14:58 | W.PN.UPDATE ---
Update Note
Progress Note Update
Patient seen and examined. Comfortable sitting in a chair awake and alert OP clear, lungs clear, cardiac exam regular rate and rhythm extremities without edema. Telemetry stable.
Patient has reconsidered having JM and implantable loop recorder. Reviewed issues at bedside with patient and his .
Discussed procedures and risks. Patient in agreement. Will plan for JM and possible ILR tomorrow.
NPO after midnight
[2024-08-27 15:34] VITALS: BP 142/83
[2024-08-27] MEDS: LIPITOR 20 MG PO (17:28)
[2024-08-27 19:56] VITALS: BP 160/80
[2024-08-27] MEDS: DEPAKOTE (12 HR RELEASE) 500 MG PO (20:25)
[2024-08-27 23:12] VITALS: BP 158/81
[2024-08-28] VITALS (8 sets, daily range): BP systolic 141–184; BP diastolic 70–85; PULSE 70; O2SAT 98
[2024-08-28] MEDS: AUGMENTIN 875 MG/125 MG 1 TABLET PO ×2 (00:51→18:02)
[2024-08-28] MEDS: HEPARIN 5000 UNITS SC ×3 (00:51→18:02)
--- NOTE | 2024-08-28 09:03 | W.PN.CD ---
Today's Communication / Plan
-
-Await JM if no clear source of CVA then would proceed with ILR today
Impression / Plan
-
Subacute CVA
-Neurology following
-JM and ILR Initially declined but now agreeable.
-Procedure and risks reviewed with patient and patient's daughter. Consent signed by both patient and his .
-Await JM if no clear source of CVA then would proceed with ILR today
(Note patient and deny that he has any swallowing issues or any issues eating. No loose teeth or dentures and no problems with anesthesia)
Status epilepticus, requiring intubation
-Self discontinued Keppra when he ran out, neurology following
Physical Exam
Vital Signs/Labs
Vital Signs
Temp Pulse Resp BP Pulse Ox
97.7 F 75 20 141/71 95
08/28/24 08:09 08/28/24 08:09 08/28/24 08:09 08/28/24 08:09 08/28/24 08:09
08/27/24 08/28/24 08/29/24
06:59 06:59 06:59
Actual Weight 82.185 kg
08/27/24 05:58
08/27/24 05:57
PT 13.5 Sec (11.4-14.6) 08/24/24 16:33
INR 1.00 08/24/24 16:33
APTT 23.9 Sec (23.4-35.0) 08/24/24 16:33
Magnesium 1.9 mg/dl (1.6-2.3) 08/27/24 05:57
Triglycerides 68 mg/dl (10-149) 08/27/24 05:57
LDL Cholesterol, Calc mg/dl 08/25/24 04:46
VLDL Cholesterol, Calc mg/dl (0-30) 08/25/24 04:46
HDL Cholesterol 46 mg/dl 08/25/24 04:46
Free T4 1.48 ng/dl (0.78-2.19) 08/25/24 12:38
Physical Exam
Constitutional: No acute distress
Cardiovascular: Rhythm & rate is regular
Respiratory: Respiratory effort normal
Neuro/Psych: Alert
Data Reviewed
-
Date of Service: August 28, 2024
Medical Decision Making: Reviewed Test Results
Medical Tests (PFT, Pathology etc): Report Reviewed by me
[2024-08-28] MEDS: DEPAKOTE (12 HR RELEASE) 500 MG PO ×2 (09:14→21:02)
[2024-08-28] MEDS: MIRALAX 17 GRAMS PO (09:15)
[2024-08-28] MEDS: LOW STRENGTH ASPIRIN 81 MG PO (09:15)
[2024-08-28] MEDS: NICODERM TRANSDERMAL 14 MG TRANSDERM (09:16)
[2024-08-28] MEDS: PROSCAR 5 MG PO (09:18)
[2024-08-28] MEDS: ZYLOPRIM 100 MG PO (09:18)
[2024-08-28] MEDS: PLAVIX 75 MG PO (09:18)
--- NOTE | 2024-08-28 09:23 | WOUNDNOTE ---
[facility] RN note: Patient admitted with seizure. Patient lives with his . Plan is rehab when discharged.
See H&P for complete history.
PMH: epilepsy, falls, BPH.
Wound Location and type/assessment: Patient admitted with: R forearm deep dermal skin tear with several sutures intact. Moderate ss drainage. L lateral wrist deep dermal skin tear. Heels blanchable red. Sacrum blanchable red with mild MASD.
Appetite: currently NPO otherwise good appetite.
Pressure redistribution devices in place: [employer] Accumax. Patient turns self in bed. He stated he can ambulate.
Plan: R and L arm dressings changed. Heel foam dressings changed. Protective silicone border foam applied to sacrum. Heels of bed with pillow. Air chair cushion given. Instructed patient pressure injury prevention measures.
Will confirm orders with Dr. Taylor and updated RN Will.
Care plan to be updated and will follow as needed.
Recommend follow up at wound care center upon discharge if needed.
--- NOTE | 2024-08-28 10:21 | W.PN.HOSP.TC ---
Today's Communication/Plan
-
JM, possible Linq then cleared for DC to acute rehab
Assessment / Plan
Assessment / Plan
84-year-old with past medical history significant for seizure episodes falls diagnosed about 10 years ago presenting to the emergency department with seizure episode, tonic-clonic lasting about 10 minutes prior to EMS arrival and patient postictal,
intubated for airway protection. Hospital course complicated by agitation on Keppra.
MRI
IMPRESSION:
3 mm focus of diffusion hyperintense signal within the right centrum semiovale with pseudonormalization of the ADC, likely a small subacute infarction.
Moderate global parenchymal volume loss with sequelae of moderate small vessel ischemic disease. There is a small focus of encephalomalacia within the posterior left cerebellar hemisphere with a small focus of prior microhemorrhage.
There is an 8 mm T2/FLAIR hyperintense cutaneous focus along the posterior left temporal scalp, incompletely characterized on this examination of possible small cutaneous lesion. Recommend direct visualization.
TTE
CONCLUSIONS
Normal left ventricular size, wall thickness and systolic function.
LV ejection fraction is 55-60% by visual assessment. Normal diastolic function.
No regional wall motion abnormalities are seen.
Normal right ventricular size and function.
No significant valvular disease.
Estimated pulmonary artery pressure of 25 mmHg, assuming a right atrial
pressure of 3 mmHg.
Small pericardial effusion in the anterior space.
No obvious thrombus seen.
No prior study available for comparison.
PLAN:
1. Seizure-
- intubated for airway protection; extubated on HD 1 (08/25)
- Keppra 1.5 g given, continue 1 g q 12. Agitation on Keppra --> transitioned to Depakote and improved, now acting his normal self per family
- EEG without active seizure, MRI results above (see below)
- neurology consult appreciated
- PT/OT/ST -->. acute rehab consulted
- advanced diet
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
-Asa/plavix
- patient now willing to undergo recommended cardiac procedures, cardiology reconsulted. Plan for JM today, possibly followed by [facility]
Lactic Acidosis post seizure
-cleared
2. Fever - Post intubation xray with homogeneous opacity in the retrocardiac left lower lobe. Possible considerations include pleural effusion, atelectasis, or pneumonia.
- suspect aspiration in setting of seizure
- viral panel negative
-afebrile 48 hours
- continue 7 day course of Augmentin
3. BPH
- continue finasteride
DVT PPX - heparin sq
Code status - Full Code
Anticipated Discharge: Within 24 hours
Subjective/Interval History
-
Date of Service: August 28, 2024
feeling well this morning
no new complaints
awaiting JM
Objective Data
-
Vital Signs:
Vital Signs
Temp Pulse Resp BP Pulse Ox
97.7 F 75 20 141/71 95
08/28/24 08:09 08/28/24 08:09 08/28/24 08:09 08/28/24 08:09 08/28/24 08:09
I&O
08/27/24 08/28/24 08/29/24
06:59 06:59 06:59
Intake Total 820 / 820 240 / 240
Output Total 750 / 750 350 / 350
Balance 70 / 70 -110 / -110
Review of Systems
-
History Source: Patient
All other systems: Reviewed and negative
Physical Exam
-
General: No Apparent Distress
HEENT: PERRLA
Respiratory: Clear to Auscultation; Negative Wheezes
Cardiac: Regular Rhythm and S1/S2
GI: Soft and Nontender
Musculoskeletal: No Edema
Skin: Warm and Dry; Negative Rash
Neuro: Awake, Alert and AO x 3
Psych: Calm
Data Reviewed
-
Diagnostic Radiology: Report Reviewed by me
Labs: Labs Reviewed by me
--- NOTE | 2024-08-28 11:24 | CM ---
TYRELL reviewed chart, patient seen bedside with daughter and , discussed [facility]qas reviewing, will confirm bed availability to discharge to [place]. Patient for JM today. CM will continue to follow for all discharge planning needs.
Plan; [facility], [place] location, when stable, bed available.
Waqas
Report: [phone]
Fax: [phone]
--- NOTE | 2024-08-28 14:24 | ITS.CL.IMPLP ---
[employer] - Implant Loop
Implant Loop
Procedure Report:
Procedure: Insertion of Loop Recorder.�
Date of the procedure: 08/28/2024
Procedure Physician: Gregorio Pina MD [facility]
Indication: Cryptogenic stroke
Description of the procedure:
Patient was brought to the holding area after informed consent was obtained from the patient. The time-out was performed immediately before the procedure.
The left parasternal chest area was prepped and draped in sterile fashion with chlorhexidine prep x 3 times. Lidocaine 1% was injected subcutaneously for local anesthesia. The loop recorder was tunneled and then injected into the subcutaneous
tissue. The tunneling tool was removed leaving the loop recorder in place. The dermis was closed with 4-0 monocryl and steristrips and a pressure Tegaderm dressing was placed. There were no immediate complications.
Post procedure, the device was interrogated and showed good detectable P and R waves.
There were no immediate complications.
Device:
LINQII; Model: [id number]; Serial #:[id number]
R wave amplitude: 0.27 mV
Final Programming:
��������������� Tachycardia Detection: >182 bpm for 16 beats
��������������� Bradycardia Detection: 30 bpm for 12 beats, Asystole for 5 seconds.
��������������� Atrial fibrillation detection: On with > 10 min duration
Conclusion:
Successful insertion of loop recorder.
Recommendation:
Routine post-insert loop care.
[2024-08-28] MEDS: LIPITOR 20 MG PO (18:02)
[2024-08-29] MEDS: HEPARIN 5000 UNITS SC ×2 (00:39→08:20)
[2024-08-29] MEDS: AUGMENTIN 875 MG/125 MG 1 TABLET PO ×2 (00:39→11:21)
[2024-08-29 03:00] VITALS: BP 135/73
[2024-08-29 07:00] VITALS: BP 142/68
[2024-08-29] MEDS: LOW STRENGTH ASPIRIN 81 MG PO (08:20)
[2024-08-29] MEDS: NICODERM TRANSDERMAL 14 MG TRANSDERM (08:21)
[2024-08-29] MEDS: MIRALAX 17 GRAMS PO (08:21)
[2024-08-29] MEDS: PLAVIX 75 MG PO (08:22)
[2024-08-29] MEDS: PROSCAR 5 MG PO (08:22)
[2024-08-29] MEDS: ZYLOPRIM 100 MG PO (08:22)
[2024-08-29] MEDS: DEPAKOTE (12 HR RELEASE) 500 MG PO (09:10)
--- NOTE | 2024-08-29 10:17 | W.PN.HOSP.TC ---
Today's Communication/Plan
-
OK for DC to Acute Rehab today
Assessment / Plan
Assessment / Plan
84-year-old with past medical history significant for seizure episodes falls diagnosed about 10 years ago presenting to the emergency department with seizure episode, tonic-clonic lasting about 10 minutes prior to EMS arrival and patient postictal,
intubated for airway protection. Hospital course complicated by agitation on Keppra.
MRI
IMPRESSION:
3 mm focus of diffusion hyperintense signal within the right centrum semiovale with pseudonormalization of the ADC, likely a small subacute infarction.
Moderate global parenchymal volume loss with sequelae of moderate small vessel ischemic disease. There is a small focus of encephalomalacia within the posterior left cerebellar hemisphere with a small focus of prior microhemorrhage.
There is an 8 mm T2/FLAIR hyperintense cutaneous focus along the posterior left temporal scalp, incompletely characterized on this examination of possible small cutaneous lesion. Recommend direct visualization.
TTE
CONCLUSIONS
Normal left ventricular size, wall thickness and systolic function.
LV ejection fraction is 55-60% by visual assessment. Normal diastolic function.
No regional wall motion abnormalities are seen.
Normal right ventricular size and function.
No significant valvular disease.
Estimated pulmonary artery pressure of 25 mmHg, assuming a right atrial
pressure of 3 mmHg.
Small pericardial effusion in the anterior space.
No obvious thrombus seen.
No prior study available for comparison.
PLAN:
1. Seizure-
- intubated for airway protection; extubated on HD 1 (08/25)
- Keppra 1.5 g given followed by 1 g q 12. Agitation on Keppra --> transitioned to Depakote and improved, now acting his normal self per family
- EEG without active seizure, MRI results above (see below)
- neurology consult appreciated
- PT/OT/ST -->. acute rehab consulted - plan to DC today
- advanced diet
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
-Asa/plavix
-s/p JM and Linq
JM with PFO
-no DVT in LE US; given age surgical intervention not recommended
Lactic Acidosis post seizure
-cleared
2. Fever - Post intubation xray with homogeneous opacity in the retrocardiac left lower lobe. Possible considerations include pleural effusion, atelectasis, or pneumonia.
- suspect aspiration in setting of seizure
- viral panel negative
-afebrile 48 hours
- continue 7 day course of Augmentin
3. BPH
- continue finasteride
DVT PPX - heparin sq
Code status - Full Code
Anticipated Discharge: Today
Subjective/Interval History
-
Date of Service: August 29, 2024
feeling well this morning
ready to go to acute rehab
Objective Data
-
Vital Signs:
Vital Signs
Temp Pulse Resp BP Pulse Ox
97.8 F 76 16 142/68 94
08/29/24 07:00 08/29/24 07:00 08/29/24 07:00 08/29/24 07:00 08/29/24 07:00
I&O
08/28/24 08/29/24 08/30/24
06:59 06:59 06:59
Intake Total 240 / 240 220 / 220
Output Total 350 / 350 250 / 250
Balance -110 / -110 -30 / -30
Review of Systems
-
History Source: Patient
All other systems: Reviewed and negative
Physical Exam
-
General: No Apparent Distress
HEENT: PERRLA
Respiratory: Clear to Auscultation; Negative Wheezes
Cardiac: Regular Rhythm and S1/S2
GI: Soft and Nontender
Musculoskeletal: No Edema
Skin: Warm and Dry; Negative Rash
Neuro: Awake, Alert and AO x 3
Psych: Calm
Data Reviewed
-
Diagnostic Radiology: Report Reviewed by me
Labs: Labs Reviewed by me
--- NOTE | 2024-08-29 10:24 | W.DS.TRANS ---
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
-
Discharge Instructions:
Discharge Diagnosis/Procedures Seizure, Adverse reaction to Keppra, ischemic
infarct, Linq implant
Diet Low Cholesterol
Activity As tolerated
Driving Restrictions No driving
Bathing Restrictions After dressing removed
Other Services PT,OT,ST
Instructions:
Stand-Alone Forms: DC Inst - Implanted Device
Changes to Home Medications: Yes
Discharge Medications:
DC Medications w/original date entered in [email or web address]
allopurinol 100 mg tablet 100 mg PO DAILY Gout 06/07/17
finasteride 5 mg tablet 5 mg PO DAILY Urinary Issue 06/07/17
acetaminophen 325 mg tablet 650 mg (2 x 325 mg) PO Q4HPRN PRN CALVO, mild pain, or temp >100.4F #30 tabs 08/28/24
amoxicillin 875 mg-potassium clavulanate 125 mg tablet 1 tab PO Q12H #4 tabs 08/28/24
aspirin 81 mg chewable tablet 81 mg PO DAILY #30 tabs 08/28/24
atorvastatin 20 mg tablet 20 mg PO QPM #30 tabs 08/28/24
clopidogrel 75 mg tablet 75 mg PO DAILY #17 tabs 08/28/24
divalproex 500 mg tablet,delayed release 500 mg PO BID #60 tabs 08/28/24
nicotine 14 mg/24 hr daily transdermal patch 14 mg transdermal DAILY #7 ea 08/28/24
polyethylene glycol 3350 17 gram oral powder packet 17 g PO DAILY #30 ea 08/28/24
Home Medication Changes
Stop Keppra. You are newly started on Depakote as treatment for seizures.
Lipitor decreased from 40mg to 20mg
You have 2 more days of Augmentin to complete treatment of pneumonia.
You are newly started on Aspirin 81mg daily.
You are newly started on Plavix 75mg daily to take x 17 more days (21 days total)
Pending Results: No
--- NOTE | 2024-08-29 10:30 | CM ---
CM reviewed chart, patient seen bedside, discussed plan for [facility] today. IMM verbally reviewed, agreeable to discharge, placed in chart. Confirmed with [facility] able to accept today. CM will continue to follow for all discharge planning needs.
Plan; [facility]
Report: [phone]
Fax: [phone]
[2024-08-29 11:00] VITALS: BP 140/70
--- NOTE | 2024-08-29 13:35 | W.DCSUMMARY ---
Discharge Summary
Discharge Data
Date of Admission: 08/24/24
Date of Discharge: 08/29/24
-
Pending Results: No
Hospital Course
Discharging Physician : Dr. Sabine Taylor
Disposition : Acute Rehab
Principal Discharge diagnosis : Seizure, Adverse reaction to Keppra, ischemic infarct, Linq implant
Hospital Course :
Mr. Navarro Edmonds is a 84 yo man with hx seizures, BPH, Gout who had recently spent several days off Keppra (had run out of medications) presents to ER post seizure with post-ictal state, intubated for airway protection. CT without acute hemorrhage.
He was given higher dose IV Keppra and started on a Propofol gtt, admitted to ICU.
Patient was extubated following day. He was initially maintained on higher dose Keppra but he had significant agitation. AED changed to Depakote with normalization of mentation. He is discharged on Depakote 500mg PO BID.
MRI positive for 3mm area of likely small subacute infarction within the right centrum semiovale. DAPT x 3 weeks followed by aspirin alone recommended. Work-up included JM and placement of a Linq monitor. JM with small PFO, LE US without DVT.
Overnight of admission patient had a fever, CXR with pneumonia. He was treated for Aspiration pneumonia and has 2 more days of antibiotics course (Augmentin) on discharge.
Patient is discharged to acute rehab.
Time spent on discharge was 35 minutes.
Important imaging findings :
MRI
IMPRESSION:
3 mm focus of diffusion hyperintense signal within the right centrum semiovale with pseudonormalization of the ADC, likely a small subacute infarction.
Moderate global parenchymal volume loss with sequelae of moderate small vessel ischemic disease. There is a small focus of encephalomalacia within the posterior left cerebellar hemisphere with a small focus of prior microhemorrhage.
There is an 8 mm T2/FLAIR hyperintense cutaneous focus along the posterior left temporal scalp, incompletely characterized on this examination of possible small cutaneous lesion. Recommend direct visualization.
TTE 08/26/24
CONCLUSIONS
Normal left ventricular size, wall thickness and systolic function.
LV ejection fraction is 55-60% by visual assessment. Normal diastolic function.
No regional wall motion abnormalities are seen.
Normal right ventricular size and function.
No significant valvular disease.
Estimated pulmonary artery pressure of 25 mmHg, assuming a right atrial
pressure of 3 mmHg.
Small pericardial effusion in the anterior space.
No obvious thrombus seen.
No prior study available for comparison.
Indications:
Thrombotic source for stroke-like sxs
Procedure findings :
JM 08/28/24
CONCLUSIONS
Normal LV size and function without regional wall motion abnormalities.
LVEF is 55-60% by visual estimation.
Normal right ventricular size and function.
No significant valve abnormalities.
No obvious thrombus seen.
Small PFO demonstrated on bubble study.
Compared to TTE from August 26, 2024, small PFO is seen on bubble study.
Indications:
R/O CLOT
Discharge Plan
-
Patient Disposition: Acute Rehab Facility
Discharge Diagnosis/Procedures: Seizure, Adverse reaction to Keppra, ischemic infarct, Linq implant
Diet: Low Cholesterol
Activity: As tolerated
Driving Restrictions: No driving
Bathing Restrictions: After dressing removed
Other Services: PT, OT and ST
Activity Restrictions/Additional Instructions:
Wound Care Instructions
R forearm skin tear-clean with saline, Vaseline gauze, alginate, ABD, secure with America or Kerlix, change q 2 days and prn drainage. Elevate RUE on pillow. Remove sutures R forearm between 09/01-09/03/24.
L forearm skin tear-clean with saline, Vaseline gauze, gauze pad/s, secure with America or Kerlix, change q 2 days and prn drainage.
Elevate heels off bed with pillow/s.
Pressure redistributing chair cushion (i.e. Air chair cushion).
Follow up at wound care center if needed, call for an appointment.
Stand Alone Forms: DC Inst - Implanted Device
Referrals:
Brandee Huffman CRNP [Specified Professional Personl] - in six weeks
Davonte Mclaughlin MD [Active] - 10/16/24 2:00 pm
Sae Schuster MD [Family Provider] - None
Additional Discharge Medication Instructions: Stop Keppra. You are newly started on Depakote as treatment for seizures.
Lipitor decreased from 40mg to 20mg
You have 2 more days of Augmentin to complete treatment of pneumonia.
You are newly started on Aspirin 81mg daily.
You are newly started on Plavix 75mg daily to take x 17 more days (21 days total)
Prescriptions:
New
divalproex 500 mg Tablet,Delayed Release (Dr/Ec)
500 mg PO BID Qty: 60 0RF
aspirin 81 mg Tablet,Chewable
81 mg PO DAILY Qty: 30 0RF
amoxicillin-pot clavulanate 875-125 mg Tablet
1 tab PO Q12H Qty: 4 0RF
Rx Instructions:
2 more days to complete treatment
atorvastatin 20 mg Tablet
20 mg PO QPM Qty: 30 0RF
nicotine 14 mg/24 hr Patch 24 Hour
14 mg transdermal DAILY Qty: 7 0RF
polyethylene glycol 3350 17 gram Powder In Packet
17 g PO DAILY Qty: 30 0RF
acetaminophen 325 mg Tablet
650 mg PO Q4HPRN PRN (Reason: CALVO, mild pain, or temp >100.4F) Qty: 30 0RF
clopidogrel 75 mg Tablet
75 mg PO DAILY Qty: 17 0RF
Rx Instructions:
17 more days to complete 21 days total
Continued
allopurinol 100 MG tablet
100 mg PO DAILY
finasteride 5 MG tablet
5 mg PO DAILY
Discontinued
atorvastatin 40 MG tablet
40 mg PO DAILY
levetiracetam 500 MG tablet
500 mg PO BID Qty: 30 0RF
sennosides [Senokot] 8.6 mg Tablet
8.6 mg PO DAILYPRN PRN (Reason: constipation)
Discharge Orders:
Discharge Patient (As Directed); Ordered 08/29/24
Ordered By: Sabine Taylor
Discharge Date and Time
Discharge Date/Time: 08/29/24 13:00
Print Language: UZBEK
== END 2024-08-29 13:00 | DRG 40 ==
LOC: 4 WEST ACU 19:11
PROVIDERS: Internal Medicine Cardiovascular Disease; Nurse Practitioner Family; ADMITTING PHYSICIAN Internal Medicine; ATTENDING PHYSICIAN Student in an Organized Health Care Education/Training Program; CONSULT PHYSICIAN Internal Medicine Cardiovascular Disease; EMERGENCY PHYSICIAN Student in an Organized Health Care Education/Training Program; FAMILY PHYSICIAN Internal Medicine; OTHER PHYSICIAN Internal Medicine; OTHER PHYSICIAN Psychiatry & Neurology Neurology
PROC: 0BH17EZ Insertion of Endotracheal Airway into Trachea, Via Natural or Artificial Opening (ICD-10-PCS; 2024-08-24)
PROC: 0HQDXZZ Repair Right Lower Arm Skin, External Approach (ICD-10-PCS; 2024-08-24)
PROC: 5A1935Z Respiratory Ventilation, Less than 24 Consecutive Hours (ICD-10-PCS; 2024-08-24)
PROC: B24BZZ4 Ultrasonography of Heart with Aorta, Transesophageal (ICD-10-PCS; 2024-08-28)
PROC: 0JH632Z Insertion of Monitoring Device into Chest Subcutaneous Tissue and Fascia, Percutaneous Approach (ICD-10-PCS; 2024-08-28)
DX: G40.401 Other generalized epilepsy and epileptic syndromes, not intractable, with status epilepticus (principal); G93.41 Metabolic encephalopathy; J69.0 Pneumonitis due to inhalation of food and vomit; I63.9 Cerebral infarction, unspecified; E87.1 Hypo-osmolality and hyponatremia; E87.20 Acidosis, unspecified; E78.00 Pure hypercholesterolemia, unspecified; E83.51 Hypocalcemia; S51.811A Laceration without foreign body of right forearm, initial encounter; T42.6X6A Underdosing of other antiepileptic and sedative-hypnotic drugs, initial encounter; N18.31 Chronic kidney disease, stage 3a; N40.0 Benign prostatic hyperplasia without lower urinary tract symptoms; X58.XXXA Exposure to other specified factors, initial encounter; F17.290 Nicotine dependence, other tobacco product, uncomplicated; Z91.138 Patient's unintentional underdosing of medication regimen for other reason; Z11.52 Encounter for screening for COVID-19; Z79.899 Other long term (current) drug therapy
CPT/HCPCS: 12004; 31500; 33285; 36600; 70450; 70551; 71045; 80048; 80053; 80061; 81003; 81015; 82040; 82550; 82805; 83605; 83721; 83735; 84100; 84145; 84439; 84443; 84478; 85025; 85027; 85610; 85730; 87040; 87070; 87205; 87502; 87811; 92523; 92526; 92610; 93005; 93306; 93312; 93320; 93325; 93880; 93970; 94002; 94003; 95816; 96374; 96375; 97116; 97162; 97167; 97530; 97535; 99291; C1764

== ENCOUNTER → 2024-09-17 13:36 | Outpatient (REF) | payer MEDICARE, SELFPAY ==
[2024-09-17 16:32] LABS: % Basophils 1.2 % (0-2); % Eosinophils 2.6 % (0-6); % Immature Granulocytes 0.9 % (0-0.5); % Lymphocytes 27.1 % (20.5-51.1); % Monocytes 10.8 % (1.7-9.3); % Neutrophils 57.4 % (42.2-75.2); Absolute Basophils 0.1 10^3/uL (0-0.2); Absolute Eosinophils 0.2 10^3/uL (0-0.7); Absolute Immature Granulocytes 0.1 10^3/uL (0-0.05); Absolute Lymphocytes 2.1 10^3/uL (1.2-3.4); Absolute Monocytes 0.8 10^3/uL (0.1-0.6); Absolute Neutrophils 4.3 10^3/uL (1.4-6.5); Hematocrit 39.4 % (39.0-52.0); Mean Corpuscular Hgb 33.5 pg (27.0-31.0); Mean Corpuscular Volume 101.5 fL (80.0-94.0); Mean Platelet Volume 10.8 fL (7.4-10.4); Nucleated Red Blood Cells % 0 % (-); Platelet Count 387 10^3/uL (130-400); Red Blood Cell Count 3.88 10^6/uL (4.70-6.10); Red Cell Dist. Width 13.9 % (11.5-14.5); White Blood Cell Count 7.6 10^3/uL (4.8-10.8)
[2024-09-17 16:50] LABS: ALT (SGPT) 16 U/L (0-50); AST (SGOT) 19 U/L (17-59); Albumin 3.5 g/dl (3.5-5.0); Alkaline Phosphatase 70 U/L (38-126); Blood Urea Nitrogen 22 mg/dl (9-20); Calcium 8.8 mg/dl (8.4-10.2); Carbon Dioxide 26 mmol/L (22-30); Chloride 108 mmol/L (98-107); Glucose 91 mg/dl (70-99); HDL Cholesterol 54 mg/dl; LDL Cholesterol, Calculated 96 mg/dl; Potassium 5.7 mmol/L (3.5-5.1); Sodium 140 mmol/L (135-145); Total Bilirubin 0.5 mg/dl (0.2-1.3); Total Cholesterol 169 mg/dl (50-199); Total Protein 6.2 g/dl (6.3-8.2); Triglyceride 97 mg/dl (10-149); Very Low Density Lipoprotein 19 mg/dl (0-30); eGFR 49.56
[2024-09-17 17:20] LABS: TSH Reflex To Free T4 2.87 uIU/ml (0.47-4.68)
== END ==
LOC: HWLAB 13:36
PROVIDERS: ATTENDING PHYSICIAN Student in an Organized Health Care Education/Training Program
DX: G40.401 Other generalized epilepsy and epileptic syndromes, not intractable, with status epilepticus (principal); R35.0 Frequency of micturition; N40.1 Benign prostatic hyperplasia with lower urinary tract symptoms; I63.411 Cerebral infarction due to embolism of right middle cerebral artery; I65.23 Occlusion and stenosis of bilateral carotid arteries; R60.0 Localized edema; R79.89 Other specified abnormal findings of blood chemistry; E78.2 Mixed hyperlipidemia
CPT/HCPCS: 36415; 80053; 80061; 84443; 85025

== ENCOUNTER 2024-09-23 16:11 | Emergency (ER) | payer MEDICARE, SELFPAY ==
[2024-09-23 16:21] VITALS: BP 129/59
[2024-09-23 17:22] LABS: Urine Albumin 3+ (Neg - Trace); Urine Bilirubin 1+ (Negative); Urine Character Cloudy (Clear); Urine Color Yellow; Urine Glucose Negative (Negative); Urine Ketone 1+ (Negative); Urine Leukocyte 3+ (Negative); Urine Nitrite Positive (Negative); Urine Occult Blood 4+ (Negative); Urine Urobilinogen 1+ (Neg - 1+)
[2024-09-23 17:29] LABS: Urine Bacteria Many (Negative); Urine Red Blood Cell >100 /HPF (0-2); Urine White Cell 80-90 /HPF (0-5)
--- NOTE | 2024-09-23 17:31 | ED.GENMED ---
History of Present Illness
General
Chief Complaint: Urinary Symptoms
Time Seen by Provider: 09/23/24 17:30
History of Present Illness
History of Present Illness:
TIME OF INITIAL ENCOUNTER: 5:30 PM
HPI: Patient presents due to gross hematuria and dysuria. There was a call and note from Dr. Mathews. The patient was admitted here earlier this year with seizure-like activity and intubated and MRI suggest a small subacute infarction and
had been on aspirin/Plavix. JM showed PFO.
EXAM:
GENERAL: Well appearing in no distress, vital signs are not consistent with sepsis
HEENT: Moist oral mucosa
CARDIOVASCULAR: No murmurs, normal heart rate, regular rhythm, No chest wall tenderness
PULMONARY: No respiratory distress, breath sounds are clear and equal
ABDOMEN: Soft with no peritoneal signs, no tenderness
NEUROLOGIC: Excellent strength all extremities, no coordination deficits
PSYCHIATRIC: Appropriate mental status, normal insight and judgement
EXTREMITIES: Nontender, no edema, moves all extremities equally
SKIN: No rash, no lesions
NUMBER AND COMPLEXITY OF PROBLEMS ADDRESSED AT THE ENCOUNTER
� Chronic conditions affecting care: Seizure disorder, hyperlipidemia, diverticular disease
� Acute Exacerbation and/or Progression of Chronic Illness: This is an acute problem
� Differential Diagnosis includes: UTI, hemorrhagic cystitis, chemical urethritis, doubt kidney stone as the patient has virtually no pain
AMOUNT AND/OR COMPLEXITY OF DATA TO BE REVIEWED AND ANALYZED
� I performed an independent evaluation of and my interpretation is:
EKG:
CT:
X-rays:
Laboratory Studies: Urinalysis is positive for nitrite along with 4+ blood and 80-90 white cells and does not appear to be a contaminated specimen.
Other:
� Review of other/old records: I reviewed records as summarized in the HPI
� Clinical information was obtained by an independent historian:
� Prescriptions/Medications Considered but not given:
� Further testing considered but not performed: Considered lab work however the patient's vital signs are not consistent with sepsis and he is very well-appearing and is eager to go
RISK OF COMPLICATIONS AND/OR MORBIDITY OR MORTALITY OF PATIENT MANAGEMENT
� Social determinants of health affecting care: Lives at home
� Discussion with other providers:
� Escalation of care including admission/observation vs risk of discharge considered: The patient has evidence of hemorrhagic cystitis/UTI. Will place on antibiotics. He is to follow-up with urology. No evidence for sepsis
based on vital signs. Patient is very well-appearing.
ANY OTHER UPDATES:
Past History
Past History
ED Past Medical History: Hypercholesterolemia, Seizures (1 prior seizure in the past) and Other (Gout)
PSI?: No
Social History
Tobacco: Non-smoker
Alcohol: Daily (Patient reports taking 1 shot of alcohol each night)
Drug: None
Personal:
Living: with family
Family History
Family History: Other
Phy Exam
Physical Exam
Physical Exam:
See HPI
Course
Orders/Labs/Results
Orders:
Orders
09/23/24 17:01
Urinalysis Reflex To Culture Urgent
Date Specimen was Collected: 09/23/24
Time Specimen was Collected: 16:24
Urine Microscopic Reflex Cult Urgent
Urine Culture Urgent
ANNE Source: U
Specimen Description:
Date Specimen was Collected: 09/23/24
Time Specimen was Collected: 16:24
09/23/24 17:41
Cephalexin Monohydrate [Keflex] 500 mg PO NOW STA
Abnormal Lab Results
09/23/24
17:01
Urine Ketones 1+ A
(Negative)
Ur Occult Blood Reflex 4+ A
(Negative)
Urine Nitrite (Reflex) Positive A
(Negative)
Urine Bilirubin 1+ A
(Negative)
Leukocyte Esterase Rfl 3+ A
(Negative)
Urine RBC >100 A /HPF
(0-2)
Urine WBC (Reflex) 80-90 A /HPF
(0-5)
Urine Bacteria (Reflex) Many A
(Negative)
Urine Albumin (Reflex) 3+ A
(Neg - Trace)
Vital Signs
Initial and Last Documented VS:
Initial Vital Signs
Temp Pulse Resp BP Pulse Ox
37.1 C 77 17 129/59 95
09/23/24 16:21 09/23/24 16:21 09/23/24 16:21 09/23/24 16:21 09/23/24 16:21
Last Documented Vital Signs
Temp Pulse Resp BP Pulse Ox
37.1 C 77 17 129/59 95
09/23/24 16:21 09/23/24 16:21 09/23/24 16:21 09/23/24 16:21 09/23/24 16:21
*Critical Care Note
Total Time (30-74mins, 75-104mins- exclusive of procedures): Not Applicable
ED Attending Note
-
Portions of this chart may have been created with voice recognition software.� Occasional wrong word or��sound alike� substitutions may have occurred due to the inherent limitations of voice recognition software.
Discharge Plan
Departure
Patient Disposition: Home (Routine Discharge)
Date of Disposition: 09/23/24
Time of Disposition: 17:41
Patient with high blood pressure during this ER visit?: Yes
Discharge Problem:
Acute hemorrhagic cystitis
Instructions: Urinary Tract Infection, Adult (DC), Blood in the Urine (Hematuria), Adult (DC), BLOOD PRESSURE
Prescriptions:
New
cephalexin 500 mg tablet
500 mg PO TID Qty: 21 0RF
No Action
allopurinol 100 MG tablet
100 mg PO DAILY
finasteride 5 MG tablet
5 mg PO DAILY
mecobalamin (vitamin B12) [B12 Active] 1,000 mcg tablet,chewable
1,000 mcg PO DAILY 30 Days Qty: 30 0RF
nicotine 14 mg/24 hr Patch 24 Hour
14 mg transdermal DAILY Qty: 7 0RF
mecobalamin (vitamin B12) [B12 Active] 1,000 mcg tablet,chewable
1,000 mcg PO DAILY 30 Days Qty: 30 0RF
atorvastatin 20 mg Tablet
20 mg PO QPM 30 Days Qty: 30 0RF
clopidogrel 75 mg Tablet
75 mg PO DAILY 4 Days Qty: 4 0RF
Rx Instructions:
17 more days to complete 21 days total
divalproex 500 mg Tablet,Delayed Release (Dr/Ec)
500 mg PO BID 30 Days Qty: 60 0RF
aspirin 81 mg Tablet,Chewable
81 mg PO DAILY Qty: 30 0RF
Referrals:
Cezar Georges MD [Active] - Follow up in 2-3 days
Activity Restrictions/Additional Instructions:
The urinalysis shows signs of both blood and infection. I am given you the contact information for a local urologist to follow-up with. I am sending a prescription for antibiotics to your pharmacy. Next dose tomorrow.
Interventions
Interventions:
*Risk Screen - Suicide Last Done: 09/23/24 16:24
*General Assessment Last Done: 09/23/24 16:23
*Neglect/Abuse Screening Last Done: 09/23/24 16:23
*ED COVID-19 Vaccine History Last Done: 09/23/24 16:23
Discharge Date and Time
Print Language: MACEDONIAN
[2024-09-23] MEDS: KEFLEX 500 MG PO (17:44)
== END 2024-09-23 18:11 | disposition home or self-care (01) ==
LOC: EMR 16:11
PROVIDERS: EMERGENCY PHYSICIAN Emergency Medicine; FAMILY PHYSICIAN Student in an Organized Health Care Education/Training Program
DX: N30.01 Acute cystitis with hematuria (principal); R03.0 Elevated blood-pressure reading, without diagnosis of hypertension; Q21.12 Patent foramen ovale; R56.9 Unspecified convulsions; E78.5 Hyperlipidemia, unspecified; K57.90 Diverticulosis of intestine, part unspecified, without perforation or abscess without bleeding; E78.00 Pure hypercholesterolemia, unspecified; M10.9 Gout, unspecified; Z79.82 Long term (current) use of aspirin; Z88.8 Allergy status to other drugs, medicaments and biological substances
CPT/HCPCS: 99283; 81003; 81015; 87077; 87086

== ENCOUNTER 2024-10-05 22:39 | Inpatient (IN) | payer MEDICARE, SELFPAY ==
[2024-10-05] VITALS (7 sets, daily range): BP systolic 109–128; BP diastolic 45–73; BMI 22.8
[2024-10-05 17:36] LABS: Urine Albumin 4+ (Neg - Trace); Urine Bilirubin Negative (Negative); Urine Character Cloudy (Clear); Urine Color Yellow; Urine Glucose Negative (Negative); Urine Ketone Negative (Negative); Urine Leukocyte 3+ (Negative); Urine Nitrite Positive (Negative); Urine Occult Blood 4+ (Negative); Urine Specific Gravity 1.015 (<1.030); Urine Urobilinogen Negative (Neg - 1+)
[2024-10-05 17:40] LABS: Hematocrit 45.3 % (39.0-52.0); Hemoglobin 14.8 g/dL (13.0-18.0); Mean Corp Hgb Conc. 32.7 g/dL (33.0-37.0); Mean Corpuscular Hgb 32.5 pg (27.0-31.0); Mean Corpuscular Volume 99.3 fL (80.0-94.0); Mean Platelet Volume 9.7 fL (7.4-10.4); Platelet Count 235 10^3/uL (130-400); Red Blood Cell Count 4.56 10^6/uL (4.70-6.10)
[2024-10-05 17:43] LABS: Urine White Cell >100 /HPF (0-5)
[2024-10-05 18:00] LABS: % Basophils 0.3 % (0-2); % Lymphocytes 4.1 % (20.5-51.1); % Neutrophils 87.6 % (42.2-75.2); Absolute Basophils 0.1 10^3/uL (0-0.2); Absolute Immature Granulocytes 0.4 10^3/uL (0-0.05); Absolute Lymphocytes 1.4 10^3/uL (1.2-3.4); Absolute Monocytes 2.5 10^3/uL (0.1-0.6); Absolute Neutrophils 30.6 10^3/uL (1.4-6.5); Nucleated Red Blood Cells % 0 % (-)
[2024-10-05 18:06] LABS: ALT (SGPT) 14 U/L (0-50); AST (SGOT) 18 U/L (17-59); Albumin 3.8 g/dl (3.5-5.0); Alkaline Phosphatase 73 U/L (38-126); Blood Urea Nitrogen 28 mg/dl (9-20); Calcium 8.6 mg/dl (8.4-10.2); Carbon Dioxide 17 mmol/L (22-30); Chloride 106 mmol/L (98-107); Glucose 136 mg/dl (70-99); Potassium 4.7 mmol/L (3.5-5.1); Sodium 139 mmol/L (135-145); Total Bilirubin 0.9 mg/dl (0.2-1.3); Total Protein 6.8 g/dl (6.3-8.2); eGFR 34.35
[2024-10-05] MEDS: TYLENOL 650 MG PO (18:46)
--- NOTE | 2024-10-05 18:51 | EDRN ---
this RN attempted to place a PIV twice and was unsuccessful, this RN called IV team
--- NOTE | 2024-10-05 18:53 | ED.GENMED ---
History of Present Illness
<Hayley Patel PA-C - Last Filed: 10/05/24 21:24>
General
Chief Complaint: Abdominal Pain
Source: patient
Exam Limitations: none
Time Seen by Provider: 10/05/24 17:53
Nursing documentation reviewed up to this point in time: agreed with
History of Present Illness
History of Present Illness:
Patient is a 84-year-old male with history of hyperlipidemia, who recently completed course of Keflex for UTI presenting to the emergency department with lower abdominal discomfort and significant fatigue since yesterday. Family states that patient
seemed to initially be improving from diagnosed UTI until yesterday when he started to seem very weak and complaining of lower abdominal pain. Today�patient had a low-grade fever at home and was unable to get out of the shower given significant
weakness. They feel that his urine is dark in color. Patient denies any back pain, nausea/vomiting, chest pain, or shortness of breath. No cough. He does report lack of appetite for the past few days. They are concerned that he may be
dehydrated.
Patient did complete course of Keflex as prescribed by emergency department 09/23/2024.
Past History
<Hayley Patel PA-C - Last Filed: 10/05/24 21:24>
Past History
ED Past Medical History: Hypercholesterolemia, Seizures (1 prior seizure in the past) and Other (Gout)
PSI?: No
Social History
Tobacco: Non-smoker
Alcohol: Daily (Patient reports taking 1 shot of alcohol each night)
Drug: None
Personal:
Living: with family
Family History
Family History: Other
Review of Systems
<Hayley Patel PA-C - Last Filed: 10/05/24 21:24>
Review of Systems
Allergies reviewed?: Yes
All Other Systems: ROS reviewed and negative except as documented in HPI and ROS
Phy Exam
<Hayley Patel PA-C - Last Filed: 10/05/24 21:24>
Physical Exam
Physical Exam:
Vitals: Patient's vital signs are stable. Temp 100.4 F
General: Patient is weak appearing, in no apparent distress
Skin: Warm and dry, no rashes or lesions
Head: Normocephalic, atraumatic
Eyes: Sclera nonicteric. EOMs intact. No nystagmus.
Throat: Protecting airway
Neck: Normal ROM, no cervical spine tenderness, no meningismus
Cardiac: Regular rate and rhythm, no murmurs.
Pulm: Normal respiratory effort, no wheezes, rales, rhonchi heard on exam.
Abdomen: Abdomen soft. Mild tenderness in left lower abdomen. No rebound tenderness or guarding. No CVA tenderness
Extremities: No evidence of cyanosis or edema. Palpable distal pulses bilaterally. Strength grossly intact in bilateral upper and lower extremities
Neuro: AAOx3. Grossly intact.
Psychiatric: Normal affect.
Sepsis
<APURVA Francis Last Filed: 10/05/24 21:24>
Sepsis Screening
Sepsis Assessment: Severe Sepsis
Sepsis Screening: Lactate >2mmol/L
Sepsis Screen
Sepsis Screen: Severe Sepsis
Date: 10/05/24
Time: 21:14
Course
<Hayley Patel PA-C - Last Filed: 10/05/24 21:24>
Orders/Labs/Results
Orders:
Orders
10/05/24 17:28
Complete Blood Count/With Diff Urgent
Comprehensive Metabolic Panel Urgent
Urinalysis Reflex To Culture Urgent
Date Specimen was Collected: 10/05/24
Time Specimen was Collected: 17:19
Urine Microscopic Reflex Cult Urgent
Urine Culture Urgent
ANNE Source: U
Specimen Description:
Obtained by: Random
Date Specimen was Collected: 10/05/24
Time Specimen was Collected: 17:19
10/05/24 18:15
Abdomen/Pelvis wo Contrast CT [CT Abd/pelvis Wo Iv Cont] Urgent
Comment:
Reason For Exam: LLQ pain, +UTI
0.9% Sodium Chloride 1000 ml [Nss] 1,000 ml IV BOLUS
Acetaminophen [Tylenol] 650 mg PO NOW STA
10/05/24 18:16
Electrocardiogram (*1) Urgent
Reason for Study: Fatigue / Weakness
EKG- Treatment ONCE
10/05/24 18:31
COVID-19 Antigen Urgent
Source: Nasal Swab
Lactic Acid Q4H
Comment: CANCEL 2nd LACTIC ACID IF 1st LACTIC ACID IS LESS THAN 2
Blood Culture Q30M
ANNE Source: Blood/Venous
Specimen Description:
Blood Culture Q30M
ANNE Source: Blood/Venous
Specimen Description:
Influenza A+B Rapid Molecular Urgent
ANNE Source: Nasal Swab
Specimen Description:
10/05/24 20:54
Cefepime HCl [Maxipime] 1,000 mg IV NOW STA
10/05/24 22:30
Lactic Acid Q4H
Comment: CANCEL 2nd LACTIC ACID IF 1st LACTIC ACID IS LESS THAN 2
Abnormal Lab Results
10/05/24 10/05/24
17:28 18:31
WBC 35.0 H 10^3/uL
(4.8-10.8)
RBC 4.56 L 10^6/uL
(4.70-6.10)
MCV 99.3 H fL
(80.0-94.0)
MCH 32.5 H pg
(27.0-31.0)
MCHC 32.7 L g/dL
(33.0-37.0)
Abs Immat Gran (auto) 0.4 H 10^3/uL
(0-0.05)
Absolute Neuts (auto) 30.6 H 10^3/uL
(1.4-6.5)
Absolute Monos (auto) 2.5 H 10^3/uL
(0.1-0.6)
Immature Gran % 1.0 H %
(0-0.5)
Neutrophils % 87.6 H %
(42.2-75.2)
Lymphocytes % 4.1 L %
(20.5-51.1)
Carbon Dioxide 17 L mmol/L
(22-30)
BUN 28 H mg/dl
(9-20)
Creatinine 1.9 H mg/dL
(0.7-1.3)
Glucose 136 H mg/dl
(70-99)
Lactic Acid 3.2 H mmol/L
(0.7-2.0)
Ur Occult Blood Reflex 4+ A
(Negative)
Urine Nitrite (Reflex) Positive A
(Negative)
Leukocyte Esterase Rfl 3+ A
(Negative)
Urine WBC (Reflex) >100 A /HPF
(0-5)
Urine Albumin (Reflex) 4+ A
(Neg - Trace)
10/05/24 17:28
10/05/24 17:28
Vital Signs
Initial and Last Documented VS:
Initial Vital Signs
Temp Pulse Resp BP Pulse Ox
99.3 F 104 18 109/73 95
10/05/24 17:16 10/05/24 17:16 10/05/24 17:16 10/05/24 17:16 10/05/24 17:16
Last Documented Vital Signs
Temp Pulse Resp BP Pulse Ox
99.4 F 79 19 128/59 92
10/05/24 19:18 10/05/24 19:30 10/05/24 19:30 10/05/24 19:16 10/05/24 19:31
<Brandee Londono MD - Last Filed: 10/05/24 18:54>
Orders/Labs/Results
Orders:
Orders
10/05/24 17:28
Complete Blood Count/With Diff Urgent
Comprehensive Metabolic Panel Urgent
Urinalysis Reflex To Culture Urgent
Date Specimen was Collected: 10/05/24
Time Specimen was Collected: 17:19
Urine Microscopic Reflex Cult Urgent
Urine Culture Urgent
ANNE Source: U
Specimen Description:
Obtained by: Random
Date Specimen was Collected: 10/05/24
Time Specimen was Collected: 17:19
10/05/24 18:15
Abdomen/Pelvis wo Contrast CT [CT Abd/pelvis Wo Iv Cont] Urgent
Comment:
Reason For Exam: LLQ pain, +UTI
0.9% Sodium Chloride 1000 ml [Nss] 1,000 ml IV BOLUS
Acetaminophen [Tylenol] 650 mg PO NOW STA
10/05/24 18:16
Electrocardiogram (*1) Urgent
Reason for Study: Fatigue / Weakness
EKG- Treatment ONCE
10/05/24 18:31
COVID-19 Antigen Urgent
Source: Nasal Swab
Lactic Acid Q4H
Comment: CANCEL 2nd LACTIC ACID IF 1st LACTIC ACID IS LESS THAN 2
Blood Culture Q30M
ANNE Source: Blood/Venous
Specimen Description:
Blood Culture Q30M
ANNE Source: Blood/Venous
Specimen Description:
Influenza A+B Rapid Molecular Urgent
ANNE Source: Nasal Swab
Specimen Description:
10/05/24 20:54
Cefepime HCl [Maxipime] 1,000 mg IV NOW STA
10/05/24 22:30
Lactic Acid Q4H
Comment: CANCEL 2nd LACTIC ACID IF 1st LACTIC ACID IS LESS THAN 2
Abnormal Lab Results
10/05/24 10/05/24
17:28 18:31
WBC 35.0 H 10^3/uL
(4.8-10.8)
RBC 4.56 L 10^6/uL
(4.70-6.10)
MCV 99.3 H fL
(80.0-94.0)
MCH 32.5 H pg
(27.0-31.0)
MCHC 32.7 L g/dL
(33.0-37.0)
Abs Immat Gran (auto) 0.4 H 10^3/uL
(0-0.05)
Absolute Neuts (auto) 30.6 H 10^3/uL
(1.4-6.5)
Absolute Monos (auto) 2.5 H 10^3/uL
(0.1-0.6)
Immature Gran % 1.0 H %
(0-0.5)
Neutrophils % 87.6 H %
(42.2-75.2)
Lymphocytes % 4.1 L %
(20.5-51.1)
Carbon Dioxide 17 L mmol/L
(22-30)
BUN 28 H mg/dl
(9-20)
Creatinine 1.9 H mg/dL
(0.7-1.3)
Glucose 136 H mg/dl
(70-99)
Lactic Acid 3.2 H mmol/L
(0.7-2.0)
Ur Occult Blood Reflex 4+ A
(Negative)
Urine Nitrite (Reflex) Positive A
(Negative)
Leukocyte Esterase Rfl 3+ A
(Negative)
Urine WBC (Reflex) >100 A /HPF
(0-5)
Urine Albumin (Reflex) 4+ A
(Neg - Trace)
10/05/24 17:28
10/05/24 17:28
Vital Signs
Initial and Last Documented VS:
Initial Vital Signs
Temp Pulse Resp BP Pulse Ox
99.3 F 104 18 109/73 95
10/05/24 17:16 10/05/24 17:16 10/05/24 17:16 10/05/24 17:16 10/05/24 17:16
Last Documented Vital Signs
Temp Pulse Resp BP Pulse Ox
99.4 F 79 19 128/59 92
10/05/24 19:18 10/05/24 19:30 10/05/24 19:30 10/05/24 19:16 10/05/24 19:31
<Hayley Patel PA-C - Last Filed: 10/05/24 21:24>
MDM/Problems Addressed
Differential Diagnosis Includes:
Not limited to: Sepsis, urosepsis, obstructing uropathy, pyelonephritis, diverticulitis, prostatitis, etc.
MDM/Problems Addressed:
84-year-old male presenting with acute UTI associated with significant weakness, fever, and abdominal pain. Temp 100.4 on arrival, mildly tachycardic, otherwise with stable vital signs. He is normotensive. Physical exam as above. Patient appears
mildly dehydrated although nontoxic. He is alert and oriented with no focal deficits. Abdomen is soft with mild left lower quadrant tenderness basic labs initiated in triage significant for a leukocytosis of 35,000 with left shift. He has a
lactic acidosis and THO w creatinine 1.9. Initial lactic of 3.2. Urine appears infected. Patient meets criteria for severe sepsis, fluid resuscitation initiated in ED. Overall�suspect urinary source�will obtain dry CT scan to rule out
obstructive uropathy. Patient will require admission. Blood cultures were sent. Viral swabs negative.
Update: CT scan shows findings of cystitis with concern for ascending infection/pyelonephritis. No evidence of obstructive uropathy. Patient remains normotensive and hemodynamically stable. Lactic acid less than 4. 30 cc/kg IV fluid
resuscitation not indicated. Will start patient on IV antibiotics. Patient admitted to hospital service in stable condition for IV antibiotics, IV fluids and further management. Patient seen with attending physician
Chronic conditions affecting care:
N/A
Acute Exacerbation and/or Progression of Chronic Illness:
Acute pyelonephritis
<Hayley Patel PA-C - Last Filed: 10/05/24 21:24>
*Radiology
Radiology exam reviewed: radiology read reviewed (Findings of cystitis with concern for ascending infection/pyelonephritis, no obstructing uropathy)
*Pulse Oximetry
Patient hypoxic: no
*EKG
Interpreted by ED Provider?: Yes
EKG Intrepretation Date: 10/05/24
Interpretation: abnormal
Comparison EKG: no changes
Heart Rate: 88
Rate: normal
Rhythm: sinus
[place]: left axis deviation
Interval: first degree heart block
QRS Pattern: normal QRS
Ischemia: no ischemia
*Refrigerating Technician Interpretation
Rate: normal
Interpretation: normal
Heart Rate: 102
Rhythm: sinus
*Critical Care Note
Total Time (30-74mins, 75-104mins- exclusive of procedures): Not Applicable
Data Reviewed
Review of Other/Old Records Reveals: Labs (Urine culture from 09/23/2024-sensitive to cefazolin) and Discharge Summary (ED visit 09/23/2024-discharged with acute UTI started on Keflex)
Source: previous hospital records
<Hayley Patel PA-C - Last Filed: 10/05/24 21:24>
Patient Management
Discussion with other providers: Hospitalist
Escalation/DeEscalation of care consider admission/obs:
Admit for IV antibiotics /further management
ED Attending Note
<Hayley Patel PA-C - Last Filed: 10/05/24 21:24>
-
Portions of this chart may have been created with voice recognition software.� Occasional wrong word or��sound alike� substitutions may have occurred due to the inherent limitations of voice recognition software.
<Brandee Londono MD - Last Filed: 10/05/24 18:54>
ED Attending Note
Patient seen and examined by attending physician: Yes
I performed the substantive portion of visit, reviewed & personally made and approve the management plan that is documented in note by myself or JUNI.: Yes
ED Attending Note:
Patient appears flushed but nontoxic. He is a fully awake, alert and oriented x 3. Lungs are clear. I am concerned about an infected stone given that the UTI is persistent and he has a fever. Awaiting plain CT abdomen pelvis. Patient is
followed by Dr. Georges for BPH
Discharge Plan
Departure
Patient Disposition: Admit
Date of Disposition: 10/05/24
Time of Disposition: 21:00
Presentation/result/management discussed w/ accepting MD/DO: Hospitalist
Discharge Problem:
Sepsis, Acute pyelonephritis, THO (acute kidney injury)
Prescriptions:
No Action
allopurinol 100 MG tablet
100 mg PO DAILY
finasteride 5 MG tablet
5 mg PO DAILY
cephalexin 500 mg tablet
500 mg PO TID Qty: 21 0RF
mecobalamin (vitamin B12) [B12 Active] 1,000 mcg tablet,chewable
1,000 mcg PO DAILY 30 Days Qty: 30 0RF
nicotine 14 mg/24 hr Patch 24 Hour
14 mg transdermal DAILY Qty: 7 0RF
mecobalamin (vitamin B12) [B12 Active] 1,000 mcg tablet,chewable
1,000 mcg PO DAILY 30 Days Qty: 30 0RF
atorvastatin 20 mg Tablet
20 mg PO QPM 30 Days Qty: 30 0RF
clopidogrel 75 mg Tablet
75 mg PO DAILY 4 Days Qty: 4 0RF
Rx Instructions:
17 more days to complete 21 days total
divalproex 500 mg Tablet,Delayed Release (Dr/Ec)
500 mg PO BID 30 Days Qty: 60 0RF
aspirin 81 mg Tablet,Chewable
81 mg PO DAILY Qty: 30 0RF
Referrals:
UNKNOWN - PT DOES,NOT KNOW [Family Provider] -
Interventions
Interventions:
*Risk Screen - Suicide Last Done: 10/05/24 17:18
*General Assessment Last Done: 10/05/24 17:18
*Neglect/Abuse Screening Last Done: 10/05/24 17:18
*ED- Fall Risk Assessment Last Done: 10/05/24 18:45
*ED COVID-19 Vaccine History Last Done: 10/05/24 17:18
JH-Nkxosi-Rjcatkyyet Assessment Last Done: 10/05/24 19:31
Discharge Date and Time
Print Language: LIBYAN
[2024-10-05 19:01] LABS: Lactic Acid 3.2 mmol/L (0.7-2.0)
[2024-10-05 19:08] LABS: COVID-19 Antigen Negative (Negative)
[2024-10-05] MEDS: NSS 1000 IV (20:09)
[2024-10-05] MEDS: MAXIPIME 1000 MG IV (21:14)
[2024-10-05] MEDS: DEPAKOTE (12 HR RELEASE) 500 MG PO (21:15)
--- NOTE | 2024-10-05 22:15 | HPS.HSE ---
Family Physician
-
Family Physician: NOT KNOW UNKNOWN - PT DOES
Chief Complaint
-
Fever, weak and lower abdominal discomfort and significant fatigue
History of Present Illness
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
- lower abdominal discomfort and significant fatigue since yesterday.
- Family states that patient seemed to initially be improved following Keflex Tx for UTI ntil yesterday
- He became weak and complaining of lower abdominal pain.
- low-grade fever at home and was unable to get out of the shower given significant weakness.
- dark in color.
- s/p complete course of Keflex as prescribed by emergency department 09/23/2024.
- Britton T 100.4 at ER
ROS
- denies any back pain, nausea/vomiting, chest pain, or shortness of breath.
- No cough.
- lack of appetite for the past few days.
Medical History
Past Medical History
Past Medical History: Reports Hypercholesterolemia, Seizures and Other (BPH, gout)
Past Surgical History: Reports Other
Social History
Unable to obtain full social history at this time due to: Patient Intubation
Family History
Family History: Not pertinent
Allergies / Home Medications
Allergies reflects when Allergies were last updated in [facility].
Home Medications with original date entered in [facility]
Allergy/Medication List:
Allergies
Allergy/AdvReac Type Severity Reaction Status Date / Time
No Known Allergies Allergy Verified 02/24/23 20:19
Home Medications
allopurinol 100 mg tablet 100 mg PO DAILY 06/07/17
atorvastatin 40 mg tablet 40 mg PO DAILY 06/07/17
finasteride 5 mg tablet 5 mg PO DAILY 06/07/17
levetiracetam 500 mg tablet 500 mg PO BID #30 tabs 06/07/17
sennosides 8.6 mg tablet (Senokot) 8.6 mg PO DAILYPRN PRN constipation 08/24/24
Review of Systems
-
Constitutional: Reports Fever and Fatigue
EENT: Reports No Symptoms
Respiratory: Reports No Symptoms
Cardiac: Reports No Symptoms
Abdomen/GI: Reports Abdominal Pain (lower abdomen )
: Reports No Symptoms
Musculoskeletal: Reports No Symptoms
Skin: Reports No Symptoms
Neurological: Reports No Symptoms
Endocrine: Reports No Symptoms
Hematologic/Lymphatic: Reports No Symptoms
Psych: Reports No Symptoms
Physical Exam
Vital Signs
Vital Signs
Temp Pulse Resp BP Pulse Ox
99.4 F 73 22 111/52 92
10/05/24 19:18 10/05/24 22:00 10/05/24 22:00 10/05/24 20:00 10/05/24 22:00
Physical Exam
General: Well Developed, Well Nourished and No Apparent Distress
HEENT: NormoCephalic, Moist mucous membranes and Atraumatic
Respiratory: Clear
Cardiac: S1/S2 and Regular Rhythm; No Murmur or Rub
GI: Soft, Non Tender, Non Distended, Normal Bowel Sounds and Other (Mild tenderness in left lower abdomen. No rebound tenderness or guarding. No CVA tenderness); No Organomegaly
Rectal: Deferred by Provider
Musculoskeletal: No Clubbing, No Cyanosis and No Edema
Skin: No Rash
Neuro: Nonfocal/grossly intact
Laboratory Results
-
10/05/24 17:28
10/05/24 17:28
Laboratory Results
Lactic Acid 3.2 mmol/L (0.7-2.0) H 10/05/24 18:31
Total Bilirubin 0.9 mg/dl (0.2-1.3) 10/05/24 17:28
AST 18 U/L (17-59) 10/05/24 17:28
ALT 14 U/L (0-50) 10/05/24 17:28
Alkaline Phosphatase 73 U/L (38-126) 10/05/24 17:28
Data Reviewed
-
CT Scan: Report Reviewed by me
Lab Data: Labs Reviewed by me
Old Records: Reviewed
Impression/Plan
-
Selected Entries
10/05/24
17:16 10/05/24
18:32
Temp 99.3 F 100.4 F H
Pulse 104 88
Blood pressure 109/73 116/45
SaO2 95 93
Oxygen Mode of Delivery Room air Room air
Lab
09/10/24 09/17/24 09/23/24
07:20 13:50 17:01
WBC 7.6
Creatinine 1.2 1.4 H
eGFR 59.63 49.56
Lactic Acid
Urine Nitrite (Reflex) Positive A
Urine WBC (Reflex) 80-90 A
10/05/24 10/05/24
17:28 18:31
WBC 35.0 H
Creatinine 1.9 H
eGFR 34.35
Lactic Acid 3.2 H
Urine Nitrite (Reflex) Positive A
Urine WBC (Reflex) >[address] Abd/pelvis Wo Iv Cont
- circumferential wall thickening with surrounding stranding of the urinary bladder consistent with cystitis.
- There is asymmetric left perinephric and periureteral stranding with severe left-sided hydronephrosis to the level of the ureteropelvic junction which likely represents pyelonephritis/ascending infection.
- There is no discrete obstructing stone.
- There is a suggestion of mild layering debris within the left-sided collecting system.
- Moderate prostatomegaly.
- Extensive colonic diverticulosis.
ASSESSMENT & PLAN
Severe sepsis 2/2 complicated male UTI with ascending infection and Lt sided pyelonephritis
Associated THO with Cr 1.9 : baseline is 1.0
Hemodynamically stable.
Significant leucocytosis, LA 3.2
THO with Cr 1.9 from baseline around 1.0.
No CT evidence of obstruction.
HX BPH
- BCx
- Agree with IV CFP
- c/w STUDENT ADVISOR Finasteride
- IV NS 100/H
- Trend daily BMP
Seizure HX
on Depakote
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
HX Linq
- cont. STUDENT ADVISOR ASA/ Plavix
HLD
- on STUDENT ADVISOR Atorvastatin
Gout on Allopurinol
Daily ETOH use
1 shot of alcohol each night
- Observe
DVT Px: SQH
Full code
IP TLM
[2024-10-05 23:03] LABS: Lactic Acid 1.5 mmol/L (0.7-2.0)
[2024-10-05] MEDS: LR 1000 IV (23:53)
[2024-10-06] VITALS (15 sets, daily range): BP systolic 111–145; BP diastolic 44–64; BMI 23.9
[2024-10-06] MEDS: MAXIPIME 1000 MG IV ×3 (06:09→21:36)
[2024-10-06] MEDS: STERILE WATER FOR INJECTION 10 ML IV ×3 (06:09→21:36)
[2024-10-06 06:34] LABS: Hematocrit 35.4 % (39.0-52.0); Hemoglobin 12.2 g/dL (13.0-18.0); Mean Corp Hgb Conc. 34.5 g/dL (33.0-37.0); Mean Corpuscular Hgb 33.4 pg (27.0-31.0); Mean Platelet Volume 10.3 fL (7.4-10.4); Platelet Count 151 10^3/uL (130-400); Red Blood Cell Count 3.65 10^6/uL (4.70-6.10); Red Cell Dist. Width 13.9 % (11.5-14.5); White Blood Cell Count 26.3 10^3/uL (4.8-10.8)
[2024-10-06 06:54] LABS: ALT (SGPT) 12 U/L (0-50); AST (SGOT) 19 U/L (17-59); Albumin 2.4 g/dl (3.5-5.0); Alkaline Phosphatase 71 U/L (38-126); Blood Urea Nitrogen 31 mg/dl (9-20); Calcium 7.7 mg/dl (8.4-10.2); Carbon Dioxide 20 mmol/L (22-30); Chloride 109 mmol/L (98-107); Estimated Creatinine Clearance 35 ml/min; Glucose 96 mg/dl (70-99); Potassium 4.5 mmol/L (3.5-5.1); Sodium 137 mmol/L (135-145); Total Bilirubin 0.8 mg/dl (0.2-1.3); eGFR 39.26
[2024-10-06] MEDS: LR 1000 IV ×2 (09:17→18:13)
[2024-10-06] MEDS: PROSCAR 5 MG PO (09:18)
[2024-10-06] MEDS: PLAVIX 75 MG PO (09:18)
[2024-10-06] MEDS: ZYLOPRIM 100 MG PO (09:18)
[2024-10-06] MEDS: HEPARIN 5000 UNITS SC ×2 (09:18→20:14)
[2024-10-06] MEDS: DEPAKOTE (12 HR RELEASE) 500 MG PO ×2 (09:18→20:14)
[2024-10-06] MEDS: LOW STRENGTH ASPIRIN 81 MG PO (09:18)
--- NOTE | 2024-10-06 09:25 | VNURNOTE ---
Chart reviewed.� Patient is current with [facility] nursing.� Will continue to follow hospital course and DC plans.
[2024-10-06 10:08] LABS: Urine Albumin 4+ (Neg - Trace); Urine Bilirubin Negative (Negative); Urine Color Yellow; Urine Glucose Negative (Negative); Urine Ketone Negative (Negative); Urine Leukocyte 3+ (Negative); Urine Nitrite Positive (Negative); Urine Occult Blood 4+ (Negative); Urine Specific Gravity 1.015 (<1.030); Urine Urobilinogen Negative (Neg - 1+)
[2024-10-06 10:12] LABS: Urine Character Cloudy (Clear)
[2024-10-06 10:40] LABS: Urine Amorphous Seen; Urine Bacteria Many (Negative); Urine Squamous Cell 0-2 /LPF (Few); Urine White Cell >100 /HPF (0-5)
--- NOTE | 2024-10-06 12:10 | CM ---
CM met with megan/Wandy and Dr Valadez at nurse's station
Pt resides with his spouse in a mobile home with 3STE
Pt admitted to in Aug and went to [place]
Current with [facility]
Prior to Aug, pt was indep without any ADs, drives+
He now has a walker which he uses to ambulate and family available to supervision and support as needed
Pt alert and oriented to family and place with some confusion and forgetfulness since Aug
Rx coverage through benefits
PCP- [facility] Dr. Mathews
Rx- [facility]
Discussion with Dr Valadez- PT eval once medically appropriate
Discharge Disposition- home with [facility] HERM[facility], watch for higher needs
--- NOTE | 2024-10-06 12:52 | W.PN.HOSP.TC ---
Today's Communication/Plan
-
continue IV Maxipime
consult Destini, discussed
Assessment / Plan
Assessment / Plan
Severe sepsis 2/2 complicated male UTI with ascending infection and Lt sided pyelonephritis
WBC 35k-->26.3k
Associated THO with Cr 1.9 : baseline is 1.0
Hemodynamically stable.
Significant leucocytosis, LA 3.2-->1.5
THO with Cr 1.9-->1.7 from baseline around 1.0.
No CT evidence of obstruction.
HX BPH
- BCx
Was seen in ER 09/23, Urine demonstrated sens E. Coli, dc on Keflex 500 mg tid x 7 days
- Agree with IV CFP
Bladder US demonstrated 35 cc fluid
- c/w PHYSICAL INSTRUCTOR Finasteride
- IV NS 100/H
- Trend daily BMP
Pt had appt with Dr. Georges as outpt on 10/22. Call placed and discussed with him, will see later today
CT Abd/pelvis Wo Iv Cont
- circumferential wall thickening with surrounding stranding of the urinary bladder consistent with cystitis.
- There is asymmetric left perinephric and periureteral stranding with severe left-sided hydronephrosis to the level of the ureteropelvic junction which likely represents pyelonephritis/ascending infection.
- There is no discrete obstructing stone.
- There is a suggestion of mild layering debris within the left-sided collecting system.
- Moderate prostatomegaly.
- Extensive colonic diverticulosis.
Seizure HX
on Depakote
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
HX Linq
- cont. PHYSICAL INSTRUCTOR ASA/ Plavix
HLD
- on PHYSICAL INSTRUCTOR Atorvastatin
Gout on Allopurinol
Daily ETOH use
1 shot of alcohol each night
- Observe
reviewed with Wandy villegas RN at bedside and at desk
DVT Px: SQH
Full code
IP TLM
Anticipated Discharge: > 48 hours
Subjective/Interval History
-
Date of Service: October 06, 2024
Awake, alert, starting to feel better compared to admission
Objective Data
-
Labs:
Laboratory Results
10/06/24
06:07
WBC 26.3 H
Hgb 12.2 L
Hct 35.4 L
Plt Count 151 D
Sodium 137
Potassium 4.5
Chloride 109 H
Carbon Dioxide 20 L
BUN 31 H
Creatinine 1.7 H
Glucose 96
Calcium 7.7 L
Total Bilirubin 0.8
AST 19
ALT 12
Alkaline Phosphatase 71
Vital Signs:
Vital Signs
Temp Pulse Resp BP Pulse Ox
98.3 F 78 23 122/45 92
10/06/24 08:00 10/06/24 10:45 10/06/24 10:45 10/06/24 10:00 10/06/24 09:15
I&O
10/05/24 10/06/24 10/07/24
06:59 06:59 06:59
Intake Total 10 / 10
Output Total 500 / 500
Balance -490 / -490
Review of Systems
-
History Source: Patient and Family ( and dgt, Wandy at bedside)
Constitutional: Reports Fever (100.4)
EENT: Reports No Symptoms Reported
Respiratory: Reports No Symptoms
Cardiac: Reports No Symptoms
Abdomen/GI: Reports Abdominal Pain (left lower abd pain)
Genitourinary: Reports Dysuria, Frequency, Difficulty Voiding and Hesitancy
Neuro: Reports No Symptoms
Physical Exam
-
General: Well Developed, Well Nourished and No Apparent Distress
HEENT: Normocephalic, Atraumatic and Moist Mucous Membranes
Respiratory: Clear to Auscultation; Negative Wheezes, Rales or Rhonchi
Cardiac: Regular Rhythm and S1/S2
GI: Soft and Tender (left suprapubic area)
Musculoskeletal: No Clubbing, No Cyanosis and No Edema
Neuro: Awake, Alert and Oriented
[2024-10-06] MEDS: TYLENOL 650 MG PO (13:12)
--- NOTE | 2024-10-06 17:47 | W.PN.URO.CBU ---
Today's Communication / Plan
-
renal scan await cxs
Assessment / Plan
-
recurrent uti possible left upj obstruction will see clinicalkuy how he responds to ivf abd abs Have ordered renal scan to see if left obstruction May need stent or perc tube
Diagnosis
-
Date of Service: October 06, 2024
-
Patient Diagnosis:
recurrent uti just having comleted targeted uti tx for e coli Now midline back pain and weakness
Post Op Day:
Subjective
-
weak sme bladder pressure
Objective
-
Vital Signs
Temp Pulse Resp BP Pulse Ox
97.8 F 76 18 118/46 97
10/06/24 16:14 10/06/24 16:14 10/06/24 16:14 10/06/24 16:14 10/06/24 16:14
Intake and Output
10/05/24 10/06/24 10/07/24
06:59 06:59 06:59
Intake Total 10 490 / 490
Output Total 500 / 500
Balance -490 / -490 490 / 490
Intake:
Oral fluids 240 / 240
IV fluids (Total) 250 / 250
IV piggybacks
Output:
Urine, Voided 500 / 500
Other:
Number of approximated MODERATE 1
amounts of urine
Laboratory Results
10/06/24 06:07
10/06/24 06:07
Review of Systems
-
: Frequency
Physical Exam
-
General - well developed, well nourished, no acute distressnon toxi\\c
Chest - clear bilaterally
Abdomen - soft, non-tender, positive bowel sounds, no CVAT, no incisional pain or distention
Genitalia - normal
Rectal - normal
Skin - warm & dry with no rash
Neuro - AOx3, no motor deficits
Extremities - no clubbing, no cyanosis, no edema
Incision - clean, dry
Dressing - clean, dry, intact
Care Review
Data Reviewed
Discussed with: Hospitalist and Nursing
CT Scan: Image Pers Reviewed
[2024-10-06] MEDS: LIPITOR 20 MG PO (18:06)
[2024-10-07 03:30] VITALS: BP 145/60
[2024-10-07] MEDS: LR 1000 IV ×2 (04:17→18:29)
[2024-10-07] MEDS: MAXIPIME 1000 MG IV ×3 (05:06→20:46)
[2024-10-07] MEDS: STERILE WATER FOR INJECTION 10 ML IV ×3 (05:07→20:46)
[2024-10-07 06:00] VITALS: BMI 24.0
[2024-10-07 07:19] VITALS: BP 141/68
[2024-10-07 08:19] LABS: % Basophils 0.4 % (0-2); % Eosinophils 0.9 % (0-6); % Immature Granulocytes 0.6 % (0-0.5); % Lymphocytes 8.4 % (20.5-51.1); % Monocytes 12.6 % (1.7-9.3); % Neutrophils 77.1 % (42.2-75.2); Absolute Basophils 0.1 10^3/uL (0-0.2); Absolute Eosinophils 0.1 10^3/uL (0-0.7); Absolute Immature Granulocytes 0.1 10^3/uL (0-0.05); Absolute Lymphocytes 1.2 10^3/uL (1.2-3.4); Absolute Monocytes 1.8 10^3/uL (0.1-0.6); Absolute Neutrophils 10.9 10^3/uL (1.4-6.5); Hematocrit 31.1 % (39.0-52.0); Hemoglobin 10.6 g/dL (13.0-18.0); Mean Corp Hgb Conc. 34.1 g/dL (33.0-37.0); Mean Corpuscular Hgb 33.2 pg (27.0-31.0); Mean Corpuscular Volume 97.5 fL (80.0-94.0); Mean Platelet Volume 10.5 fL (7.4-10.4); Nucleated Red Blood Cells % 0 % (-); Platelet Count 145 10^3/uL (130-400); Red Blood Cell Count 3.19 10^6/uL (4.70-6.10); White Blood Cell Count 14.1 10^3/uL (4.8-10.8)
[2024-10-07] MEDS: ZYLOPRIM 100 MG PO (08:32)
[2024-10-07] MEDS: LOW STRENGTH ASPIRIN 81 MG PO (08:32)
[2024-10-07] MEDS: DEPAKOTE (12 HR RELEASE) 500 MG PO ×2 (08:32→20:46)
[2024-10-07] MEDS: PROSCAR 5 MG PO (08:35)
[2024-10-07] MEDS: PLAVIX 75 MG PO (08:35)
[2024-10-07] MEDS: HEPARIN 5000 UNITS SC ×2 (08:36→20:46)
[2024-10-07 08:41] LABS: Blood Urea Nitrogen 35 mg/dl (9-20); Calcium 7.6 mg/dl (8.4-10.2); Carbon Dioxide 22 mmol/L (22-30); Chloride 109 mmol/L (98-107); Estimated Creatinine Clearance 40 ml/min; Glucose 82 mg/dl (70-99); Potassium 4.5 mmol/L (3.5-5.1); Sodium 136 mmol/L (135-145); eGFR 45.62
--- NOTE | 2024-10-07 11:43 | W.PN.URO.CBU ---
Today's Communication / Plan
-
iprovinh but ct scan suggest obstruction to left kidney await cultures and renal scan report
Assessment / Plan
-
recurrent uti possible left upj obstruction will see clinicalkuy how he responds to ivf abd abs Have ordered renal scan[pending ] to see if left obstruction May need perc tube and hold plavix
Diagnosis
-
Date of Service: October 07, 2024
-
Patient Diagnosis:
Post Op Day:
Patient Diagnosis:
recurrent uti just having comleted targeted uti tx for e coli Now midline back pain and weakness abnormal left kidney with perinephric stranding and upj narrowing
Post Op Day:
Subjective
-
feeling better
Objective
-
Vital Signs
Temp Pulse Resp BP Pulse Ox
97.9 F 73 20 141/68 100
10/07/24 07:19 10/07/24 07:19 10/07/24 07:19 10/07/24 07:19 10/07/24 07:19
Intake and Output
10/06/24 10/07/24 10/08/24
06:59 06:59 06:59
Intake Total 10 10 1690 / 1690
Output Total 500 / 500 600 / 600
Balance -490 / -490 1090 / 1090
Intake:
Oral fluids 240 / 240
IV fluids (Total) 1450 / 1450
IV piggybacks 10
Output:
Urine, Voided 500 / 500 600 / 600
Other:
Number of approximated MODERATE 1
amounts of urine
How many times incontinent 2
SATURATED amount urine
Laboratory Results
10/07/24 07:32
10/07/24 07:32
Review of Systems
-
: Flank Pain
Physical Exam
-
General - well developed, well nourished, no acute distress
Chest - clear bilaterally
Abdomen - soft, non-tender, positive bowel sounds, no CVAT, no incisional pain or distention
Genitalia - normal
Rectal - normal
Skin - warm & dry with no rash
Neuro - AOx3, no motor deficits
Extremities - no clubbing, no cyanosis, no edema
Incision - clean, dry
Dressing - clean, dry, intact
Care Review
Data Reviewed
Discussed with: Hospitalist, Nursing and Family ( and daughter )
CT Scan: Image Pers Reviewed
[2024-10-07 11:53] VITALS: BP 126/58
--- NOTE | 2024-10-07 12:59 | W.PN.HOSP.TC ---
Today's Communication/Plan
-
slow IVF
continue to follow labs
IRAD consult
Assessment / Plan
Assessment / Plan
Severe sepsis 2/2 complicated male UTI with ascending infection and Lt sided pyelonephritis
WBC 35k-->26.3-->14.1k
Associated THO with Cr 1.9-->1.5 : baseline is 1.0
Hemodynamically stable.
Significant leucocytosis, LA 3.2-->1.5
HX BPH
- BCx
Was seen in ER 09/23, Urine demonstrated sens E. Coli, dc on Keflex 500 mg tid x 7 days
- Agree with IV CFP
Bladder US demonstrated 35 cc fluid
- c/w OFFICE HELPER Finasteride
- IV LR will slow to 80 cc/H
- Trend daily BMP
Pt had appt with Dr. Georges as outpt on 10/22. Call placed and discussed with him, input greatly appreciated, concerned pt has left UPJ obstruction
he plans to consult IRAD for potential percutaneous drainage
CT Abd/pelvis Wo Iv Cont
- circumferential wall thickening with surrounding stranding of the urinary bladder consistent with cystitis.
- There is asymmetric left perinephric and periureteral stranding with severe left-sided hydronephrosis to the level of the ureteropelvic junction which likely represents pyelonephritis/ascending infection.
- There is no discrete obstructing stone.
- There is a suggestion of mild layering debris within the left-sided collecting system.
- Moderate prostatomegaly.
- Extensive colonic diverticulosis.
Seizure HX
on Depakote
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
HX Linq
- cont. OFFICE HELPER ASA/ Plavix
HLD
- on OFFICE HELPER Atorvastatin
Gout on Allopurinol
Daily ETOH use
1 shot of alcohol each night
- Observe
reviewed with dgtWandy RN at bedside and at desk
DVT Px: SQH
Full code
IP TLM
Anticipated Discharge: > 48 hours
Subjective/Interval History
-
Date of Service: October 07, 2024
Awake, alert, conversant
Objective Data
-
Labs:
Laboratory Results
10/07/24
07:32
WBC 14.1 H
Hgb 10.6 L
Hct 31.1 L
Plt Count 145
Sodium 136
Potassium 4.5
Chloride 109 H
Carbon Dioxide 22
BUN 35 H
Creatinine 1.5 H
Glucose 82
Calcium 7.6 L
Vital Signs:
Vital Signs
Temp Pulse Resp BP Pulse Ox
98 F 71 16 126/58 95
10/07/24 11:53 10/07/24 11:53 10/07/24 11:53 10/07/24 11:53 10/07/24 11:53
I&O
10/06/24 10/07/24 10/08/24
06:59 06:59 06:59
Intake Total 10 / 10 1690 / 1690
Output Total 500 / 500 600 / 600
Balance -490 / -490 1090 / 1090
Review of Systems
-
History Source: Patient and Family ( and dgt, Wandy at bedside)
Constitutional: Reports Fever (100.4, afebrile 36 hrs)
EENT: Reports No Symptoms Reported
Respiratory: Reports No Symptoms
Cardiac: Reports No Symptoms
Abdomen/GI: Reports Abdominal Pain (left lower abd pain)
Genitourinary: Reports Dysuria, Frequency, Difficulty Voiding and Hesitancy
Neuro: Reports No Symptoms
Physical Exam
-
General: Well Developed, Well Nourished and No Apparent Distress
HEENT: Normocephalic, Atraumatic and Moist Mucous Membranes
Respiratory: Clear to Auscultation; Negative Wheezes, Rales or Rhonchi
Cardiac: Regular Rhythm and S1/S2
GI: Soft and Tender (left suprapubic area)
Musculoskeletal: No Clubbing, No Cyanosis and No Edema
Neuro: Awake, Alert and Oriented
--- NOTE | 2024-10-07 14:27 | W.PN.UPDATE ---
Update Note
Progress Note Update
renal scan shows obstruction to left kidney Pt on plavix and asa which need to be held x 5 days to allow for perc tube. As stable ths is reasonable safety precaution but if becomes toxic will have to cionxeder jj stent or per tube on
urgent basis
[2024-10-07 15:28] VITALS: BP 123/51
[2024-10-07] MEDS: LIPITOR 20 MG PO (18:28)
[2024-10-07 19:30] VITALS: BP 157/68
[2024-10-07 23:20] VITALS: BP 160/72
[2024-10-08 03:25] VITALS: BP 160/80
[2024-10-08 04:01] VITALS: BMI 23.9
[2024-10-08] MEDS: MAXIPIME 1000 MG IV ×3 (05:34→21:22)
[2024-10-08] MEDS: LR 1000 IV ×2 (05:34→21:19)
[2024-10-08] MEDS: STERILE WATER FOR INJECTION 10 ML IV ×3 (05:35→21:22)
[2024-10-08 07:00] VITALS: BP 153/78
[2024-10-08 07:35] LABS: % Basophils 0.4 % (0-2); % Eosinophils 1.7 % (0-6); % Immature Granulocytes 0.4 % (0-0.5); % Lymphocytes 13.9 % (20.5-51.1); % Monocytes 11.6 % (1.7-9.3); Absolute Eosinophils 0.1 10^3/uL (0-0.7); Absolute Lymphocytes 1.1 10^3/uL (1.2-3.4); Absolute Monocytes 0.9 10^3/uL (0.1-0.6); Absolute Neutrophils 5.6 10^3/uL (1.4-6.5); Hemoglobin 12.2 g/dL (13.0-18.0); Mean Corp Hgb Conc. 33.9 g/dL (33.0-37.0); Mean Corpuscular Volume 97.3 fL (80.0-94.0); Mean Platelet Volume 10.7 fL (7.4-10.4); Nucleated Red Blood Cells % 0 % (-); Platelet Count 148 10^3/uL (130-400); Red Cell Dist. Width 13.7 % (11.5-14.5); White Blood Cell Count 7.8 10^3/uL (4.8-10.8)
[2024-10-08 07:45] LABS: Blood Urea Nitrogen 30 mg/dl (9-20); Calcium 8.2 mg/dl (8.4-10.2); Carbon Dioxide 25 mmol/L (22-30); Chloride 107 mmol/L (98-107); Estimated Creatinine Clearance 50 ml/min; Glucose 80 mg/dl (70-99); Potassium 4.2 mmol/L (3.5-5.1); Sodium 140 mmol/L (135-145); eGFR 59.63
--- NOTE | 2024-10-08 08:57 | W.PN.URO.CBU ---
Today's Communication / Plan
-
no gu changes
Assessment / Plan
-
recurrent uti lkeft upj partially blocked needs perc tube but on plavix asa will holsd these rxs and await irad ok for peerc will need to hold sq heparin for procedure ad npo need irad to give us a safe date to continue
Diagnosis
-
Date of Service: October 08, 2024
-
Patient Diagnosis:
Post Op Day:
Patient Diagnosis:
Post Op Day:
Patient Diagnosis:
recurrent uti just having comleted targeted uti tx for e coli Now midline back pain and weakness abnormal left kidney with perinephric stranding and upj narrowing
Post Op Day:
Subjective
-
fels better
Objective
-
Vital Signs
Temp Pulse Resp BP Pulse Ox
98.0 F 84 20 153/78 95
10/08/24 07:00 10/08/24 07:00 10/08/24 07:00 10/08/24 07:00 10/08/24 07:00
Intake and Output
10/07/24 10/08/24 10/09/24
06:59 06:59 06:59
Intake Total 1690 / 1690 3560 / 3560
Output Total 600 / 600 1375 / 1375
Balance 1090 / 1090 2185 / 2185
Intake:
Oral fluids 240 / 240 1680 / 1680
IV fluids (Total) 1450 / 1450 1880 / 1880
Output:
Urine, Voided 600 / 600 1375 / 1375
Other:
How many times incontinent 2
SATURATED amount urine
Laboratory Results
10/08/24 06:26
10/08/24 06:26
Review of Systems
-
: Flank Pain
Physical Exam
-
General - well developed, well nourished, no acute distress
Chest - clear bilaterally
Abdomen - soft, non-tender, positive bowel sounds, no CVAT, no incisional pain or distention
Genitalia - normal
Rectal - normal
Skin - warm & dry with no rash
Neuro - AOx3, no motor deficits
Extremities - no clubbing, no cyanosis, no edema
Incision - clean, dry
Dressing - clean, dry, intact
Care Review
Data Reviewed
Discussed with: Hospitalist, IRAD and Family
[2024-10-08] MEDS: HEPARIN 5000 UNITS SC ×2 (09:45→21:18)
[2024-10-08] MEDS: DEPAKOTE (12 HR RELEASE) 500 MG PO ×2 (09:46→21:17)
[2024-10-08] MEDS: PROSCAR 5 MG PO (09:46)
[2024-10-08] MEDS: ZYLOPRIM 100 MG PO (09:46)
[2024-10-08 11:00] VITALS: BP 129/62
[2024-10-08 15:00] VITALS: BP 129/66
--- NOTE | 2024-10-08 15:55 | CM ---
Chart reviewed and patient may benefit from PT/OT, patient is current with [facility].
Plan; Home with [facility]. Will await PT/OT evaluation.
--- NOTE | 2024-10-08 17:04 | W.PN.HOSP.TC ---
Today's Communication/Plan
-
IS, duonebs, CXR
Assessment / Plan
Assessment / Plan
Severe sepsis 2/2 complicated male UTI with ascending infection and Lt sided pyelonephritis
WBC 35k-->26.3-->14.1-->7.8-->9.2k
Associated THO with Cr 1.9-->1.5-->1.2-->1.1 : baseline is 1.0
Hemodynamically stable.
Significant leucocytosis, better
LA 3.2-->1.5
10/07 Renal Scan: 1. MODERATE to SEVERELY DECREASED LEFT RENAL FUNCTION (split renal function 28% left and 72% right).
2. 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
Bibasilar atelectasis has worsened
discussed need for IS, will order duonebs and CXR
HX BPH
- BCx
Was seen in ER 09/23, Urine demonstrated sens E. Coli, dc on Keflex 500 mg tid x 7 days
- Agree with IV CFP
Bladder US demonstrated 35 cc fluid
- c/w SENIOR OUTSIDE SALES REPRESENTATIVE Finasteride
- IV LR will slow to 40 cc/H
- Trend daily BMP
Pt had appt with Dr. Georges as outpt on 10/22. Call placed and discussed with him, input greatly appreciated, concerned pt has left UPJ obstruction
consulted IRAD for potential percutaneous drainage, Plavix and ASA stopped. Timing of procedure as per IRAD, but request Plavix/ASA washout
CT Abd/pelvis Wo Iv Cont
- circumferential wall thickening with surrounding stranding of the urinary bladder consistent with cystitis.
- There is asymmetric left perinephric and periureteral stranding with severe left-sided hydronephrosis to the level of the ureteropelvic junction which likely represents pyelonephritis/ascending infection.
- There is no discrete obstructing stone.
- There is a suggestion of mild layering debris within the left-sided collecting system.
- Moderate prostatomegaly.
- Extensive colonic diverticulosis.
Seizure HX
on Depakote
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
HX Linq
HLD
- on SENIOR OUTSIDE SALES REPRESENTATIVE Atorvastatin
Gout on Allopurinol
Daily ETOH use
1 shot of alcohol each night
- Observe
Needs to get OOB to chair more, reviewed with nursing
reviewed with in room, 10/09
DVT Px: SQH
Full code
IP TLM
Anticipated Discharge: > 48 hours
Subjective/Interval History
-
Date of Service: October 08, 2024
Still doesn't feel back to usual self, but believes has improved
Objective Data
-
Labs:
Laboratory Results
10/08/24
06:26
WBC 7.8
Hgb 12.2 L
Hct 36.0 L
Plt Count 148
Sodium 140
Potassium 4.2
Chloride 107
Carbon Dioxide 25
BUN 30 H
Creatinine 1.2
Glucose 80
Calcium 8.2 L
Vital Signs:
Vital Signs
Temp Pulse Resp BP Pulse Ox
97.8 F 80 20 129/66 96
10/08/24 15:00 10/08/24 15:00 10/08/24 15:00 10/08/24 15:00 10/08/24 15:00
I&O
10/07/24 10/08/24 10/09/24
06:59 06:59 06:59
Intake Total 1690 / 1690 3560 / 3560
Output Total 600 / 600 1375 / 1375
Balance 1090 / 1090 2185 / 2185
Review of Systems
-
History Source: Patient and Family ( and dgt, Wandy at bedside)
Constitutional: Reports Fever (afebrile since 10/05 18:32)
EENT: Reports No Symptoms Reported
Respiratory: Reports No Symptoms
Cardiac: Reports No Symptoms
Abdomen/GI: Reports Abdominal Pain (left lower abd pain)
Genitourinary: Reports Dysuria, Frequency, Difficulty Voiding and Hesitancy
Neuro: Reports No Symptoms
Physical Exam
-
General: Well Developed, Well Nourished and No Apparent Distress
HEENT: Normocephalic, Atraumatic and Moist Mucous Membranes
Respiratory: Rales (bibasilar atelectatic rales, left>Rt); Negative Wheezes or Rhonchi
Cardiac: Regular Rhythm and S1/S2
GI: Soft and Tender (left suprapubic area)
Genito-urinary: No Costovertebral Tender
Musculoskeletal: No Clubbing, No Cyanosis and No Edema
Neuro: Awake, Alert and Oriented
[2024-10-08] MEDS: LIPITOR 20 MG PO (17:46)
[2024-10-08 19:30] VITALS: BP 134/66
[2024-10-08 23:30] VITALS: BP 126/69
[2024-10-09] VITALS (8 sets, daily range): BP systolic 126–161; BP diastolic 59–78; PULSE 68; O2SAT 94; BMI 22.7
[2024-10-09] MEDS: MAXIPIME 1000 MG IV ×3 (06:08→21:59)
[2024-10-09] MEDS: STERILE WATER FOR INJECTION 10 ML IV ×3 (06:08→22:00)
[2024-10-09] MEDS: DEPAKOTE (12 HR RELEASE) 500 MG PO ×2 (08:11→21:59)
[2024-10-09] MEDS: ZYLOPRIM 100 MG PO (08:11)
[2024-10-09] MEDS: PROSCAR 5 MG PO (08:11)
[2024-10-09] MEDS: HEPARIN 5000 UNITS SC ×2 (08:12→21:59)
[2024-10-09 08:29] LABS: % Basophils 0.2 % (0-2); % Eosinophils 1.4 % (0-6); % Immature Granulocytes 0.4 % (0-0.5); % Lymphocytes 14.5 % (20.5-51.1); % Monocytes 16.3 % (1.7-9.3); % Neutrophils 67.2 % (42.2-75.2); Absolute Eosinophils 0.1 10^3/uL (0-0.7); Absolute Lymphocytes 1.3 10^3/uL (1.2-3.4); Absolute Monocytes 1.5 10^3/uL (0.1-0.6); Absolute Neutrophils 6.2 10^3/uL (1.4-6.5); Hematocrit 31.1 % (39.0-52.0); Hemoglobin 10.5 g/dL (13.0-18.0); Mean Corp Hgb Conc. 33.8 g/dL (33.0-37.0); Mean Corpuscular Hgb 32.6 pg (27.0-31.0); Mean Corpuscular Volume 96.6 fL (80.0-94.0); Nucleated Red Blood Cells % 0 % (-); Red Blood Cell Count 3.22 10^6/uL (4.70-6.10); Red Cell Dist. Width 13.9 % (11.5-14.5); White Blood Cell Count 9.2 10^3/uL (4.8-10.8)
[2024-10-09 10:11] LABS: Blood Urea Nitrogen 31 mg/dl (9-20); Carbon Dioxide 23 mmol/L (22-30); Chloride 109 mmol/L (98-107); Estimated Creatinine Clearance 54 ml/min; Glucose 87 mg/dl (70-99); Potassium 4.3 mmol/L (3.5-5.1); Sodium 141 mmol/L (135-145); eGFR > 60.00
[2024-10-09] MEDS: LR 1000 IV (10:11)
--- NOTE | 2024-10-09 10:23 | VNURNOTE ---
Clinical Trial Assistant met with patient and to discuss RESUMPTION of [facility] . Patient is agreeable
[facility] contact information provided. Patient is aware that [facility] will contact them for start of care in 1-2 days after discharge from .
[facility] referral completed in [facility].
--- NOTE | 2024-10-09 13:37 | W.PN.URO.CBU ---
Today's Communication / Plan
-
for left peerc tube per irad
Assessment / Plan
-
recurrent uti lkeft upj partially blocked needs perc tube but on plavix asa will holsd these rxs and await irad ok for peerc will need to hold sq heparin for procedure ad npo need irad to give us a safe date to continue
Diagnosis
-
Date of Service: October 09, 2024
-
Patient Diagnosis:
Post Op Day:
Patient Diagnosis:
Post Op Day:
Patient Diagnosis:
Post Op Day:
Patient Diagnosis:
recurrent uti just having comleted targeted uti tx for e coli Now midline back pain and weakness abnormal left kidney with perinephric stranding and upj narrowing
Post Op Day:
Subjective
-
feeling baseline
Objective
-
Vital Signs
Temp Pulse Resp BP Pulse Ox
98.2 F 68 18 146/78 94
10/09/24 11:00 10/09/24 11:00 10/09/24 11:00 10/09/24 11:00 10/09/24 11:00
Intake and Output
10/08/24 10/09/24 10/10/24
06:59 06:59 06:59
Intake Total 3560 / 3560 1050 / 1050
Output Total 1375 / 1375 1580 / 1580
Balance 2185 / 2185 -530 / -530
Intake:
Oral fluids 1680 / 1680 570 / 570
IV fluids (Total) 1880 / 1880 480 / 480
Output:
Urine, Voided 1375 / 1375 1580 / 1580
Laboratory Results
10/09/24 07:23
10/09/24 07:23
Review of Systems
-
: No Symptoms
Musculoskeletal: No Symptoms
Skin: No Symptoms
Physical Exam
-
General - well developed, well nourished, no acute distress
Chest - clear bilaterally
Abdomen - soft, non-tender, positive bowel sounds, no CVAT, no incisional pain or distention
Genitalia - normal
Rectal - normal
Skin - warm & dry with no rash
Neuro - AOx3, no motor deficits
Extremities - no clubbing, no cyanosis, no edema
Incision - clean, dry
Dressing - clean, dry, intact
Care Review
Data Reviewed
Discussed with: Nursing, IRAD and Family
CT Scan: Image Pers Reviewed
--- NOTE | 2024-10-09 16:53 | CM ---
Chart reviewed and patient has been seen by physical therapy and recommendation is home with visiting nurses, patient has selected [facility].
Plan; Home with [facility].
[2024-10-09] MEDS: LIPITOR 20 MG PO (17:13)
[2024-10-10] VITALS (7 sets, daily range): BP systolic 122–135; BP diastolic 59–99; BMI 22.7
[2024-10-10] MEDS: STERILE WATER FOR INJECTION 10 ML IV ×3 (05:53→21:52)
[2024-10-10] MEDS: MAXIPIME 1000 MG IV ×3 (05:53→21:52)
[2024-10-10 07:43] LABS: % Basophils 0.3 % (0-2); % Eosinophils 3.2 % (0-6); % Immature Granulocytes 0.6 % (0-0.5); % Lymphocytes 14.8 % (20.5-51.1); % Monocytes 16.8 % (1.7-9.3); % Neutrophils 64.3 % (42.2-75.2); Absolute Eosinophils 0.3 10^3/uL (0-0.7); Absolute Immature Granulocytes 0.1 10^3/uL (0-0.05); Absolute Lymphocytes 1.4 10^3/uL (1.2-3.4); Absolute Monocytes 1.6 10^3/uL (0.1-0.6); Absolute Neutrophils 6.3 10^3/uL (1.4-6.5); Hematocrit 30.9 % (39.0-52.0); Hemoglobin 10.4 g/dL (13.0-18.0); Mean Corp Hgb Conc. 33.7 g/dL (33.0-37.0); Mean Corpuscular Hgb 32.8 pg (27.0-31.0); Mean Corpuscular Volume 97.5 fL (80.0-94.0); Mean Platelet Volume 10.4 fL (7.4-10.4); Nucleated Red Blood Cells % 0 % (-); Platelet Count 164 10^3/uL (130-400); Red Blood Cell Count 3.17 10^6/uL (4.70-6.10); Red Cell Dist. Width 13.9 % (11.5-14.5); White Blood Cell Count 9.8 10^3/uL (4.8-10.8)
[2024-10-10 08:05] LABS: Blood Urea Nitrogen 31 mg/dl (9-20); Calcium 7.9 mg/dl (8.4-10.2); Carbon Dioxide 26 mmol/L (22-30); Chloride 110 mmol/L (98-107); Estimated Creatinine Clearance 54 ml/min; Glucose 86 mg/dl (70-99); Potassium 4.3 mmol/L (3.5-5.1); Sodium 140 mmol/L (135-145); eGFR > 60.00
[2024-10-10] MEDS: ZYLOPRIM 100 MG PO (08:47)
[2024-10-10] MEDS: PROSCAR 5 MG PO (08:48)
[2024-10-10] MEDS: DEPAKOTE (12 HR RELEASE) 500 MG PO ×2 (08:48→20:24)
[2024-10-10] MEDS: HEPARIN 5000 UNITS SC (09:36)
[2024-10-10] MEDS: LR 1000 IV (10:50)
--- NOTE | 2024-10-10 15:33 | W.PN.HOSP.TC ---
Today's Communication/Plan
-
PCN tomorrow
Assessment / Plan
Assessment / Plan
Severe sepsis 2/2 complicated male UTI with ascending infection and Lt sided pyelonephritis
WBC 35k-->26.3-->14.1-->7.8-->9.2-->9.8k
Associated THO with Cr 1.9-->1.5-->1.2-->1.1-->1.1 : baseline is 1.0
Hemodynamically stable.
LA 3.2-->1.5
10/07 Renal Scan: 1. MODERATE to SEVERELY DECREASED LEFT RENAL FUNCTION (split renal function 28% left and 72% right).
2. 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
Bibasilar atelectasis has worsened
discussed need for IS, will order duonebs
CXR: Focal parenchymal airspace opacity in the medial and posterior aspect of the left lower lobe. Main differential considerations of pneumonia and/or atelectasis. No evidence for associated pleural effusion.
most likely atelectasis, pt reminded of need to use incentive spirometry
HX BPH
- BCx
Was seen in ER 09/23, Urine demonstrated sens E. Coli, dc on Keflex 500 mg tid x 7 days
- Agree with IV CFP
Bladder US demonstrated 35 cc fluid
- c/w DOCK GUARD Finasteride
- IV LR will slow to 40 cc/H
- Trend daily BMP
Pt had appt with Dr. Georges as outpt on 10/22. Call placed and discussed with him, input greatly appreciated, concerned pt has left UPJ obstruction
consulted IRAD for potential percutaneous drainage, Plavix and ASA stopped. Timing of procedure as per IRAD, will most likely be 10/11. Heparin to be placed on hold
CT Abd/pelvis Wo Iv Cont
- circumferential wall thickening with surrounding stranding of the urinary bladder consistent with cystitis.
- There is asymmetric left perinephric and periureteral stranding with severe left-sided hydronephrosis to the level of the ureteropelvic junction which likely represents pyelonephritis/ascending infection.
- There is no discrete obstructing stone.
- There is a suggestion of mild layering debris within the left-sided collecting system.
- Moderate prostatomegaly.
- Extensive colonic diverticulosis.
Seizure HX
on Depakote
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
HX Linq
HLD
- on DOCK GUARD Atorvastatin
Gout on Allopurinol
Daily ETOH use
1 shot of alcohol each night
- Observe
Needs to get OOB to chair more, reviewed with nursing
reviewed with in room, 10/10
For Percutaneous nephrostomy 10/11
DVT Px: SQH
Full code
IP TLM
Anticipated Discharge: > 48 hours
Subjective/Interval History
-
Date of Service: October 10, 2024
Awake, alert
Objective Data
-
Labs:
Laboratory Results
10/10/24
07:22
WBC 9.8
Hgb 10.4 L
Hct 30.9 L
Plt Count 164
Sodium 140
Potassium 4.3
Chloride 110 H
Carbon Dioxide 26
BUN 31 H
Creatinine 1.1
Glucose 86
Calcium 7.9 L
Vital Signs:
Vital Signs
Temp Pulse Resp BP Pulse Ox
97.7 F 72 17 123/59 97
10/10/24 15:27 10/10/24 15:27 10/10/24 15:27 10/10/24 15:27 10/10/24 15:27
I&O
10/09/24 10/10/24 10/11/24
06:59 06:59 06:59
Intake Total 1050 / 1050 240 / 240
Output Total 1580 / 1580 900 / 900
Balance -530 / -530 -660 / -660
Review of Systems
-
History Source: Patient, Family ( and dgt, Wandy at bedside) and Coordinated Provider
Constitutional: Reports Fever (afebrile since 10/05 18:32)
EENT: Reports No Symptoms Reported
Respiratory: Reports No Symptoms
Cardiac: Reports No Symptoms
Abdomen/GI: Reports Abdominal Pain (left lower abd pain)
Genitourinary: Reports Dysuria, Frequency, Difficulty Voiding and Hesitancy
Neuro: Reports No Symptoms
Physical Exam
-
General: Well Developed, Well Nourished and No Apparent Distress
HEENT: Normocephalic, Atraumatic and Moist Mucous Membranes
Respiratory: Rales (bibasilar atelectatic rales, left>Rt, significantly improved); Negative Wheezes or Rhonchi
Cardiac: Regular Rhythm and S1/S2
GI: Soft; Negative Tender or Distended
Genito-urinary: No Costovertebral Tender
Musculoskeletal: No Clubbing, No Cyanosis and No Edema
Neuro: Awake, Alert and Oriented (mentation definitely improved)
--- NOTE | 2024-10-10 15:44 | CM ---
Chart reviewed and plan is to home with [facility].
Plan; Home with [facility]
[2024-10-10] MEDS: LIPITOR 20 MG PO (17:16)
[2024-10-11] VITALS (17 sets, daily range): BP systolic 66–149; BP diastolic 6–70; BMI 22.7
[2024-10-11] MEDS: STERILE WATER FOR INJECTION 10 ML IV ×3 (06:30→21:36)
[2024-10-11] MEDS: MAXIPIME 1000 MG IV ×3 (06:30→21:36)
[2024-10-11 08:24] LABS: INR 0.95
[2024-10-11] MEDS: ZYLOPRIM PO (08:56)
[2024-10-11] MEDS: PROSCAR 5 MG PO (08:56)
[2024-10-11] MEDS: DEPAKOTE (12 HR RELEASE) 500 MG PO ×2 (08:56→19:57)
[2024-10-11] MEDS: LR 1000 IV (13:18)
--- NOTE | 2024-10-11 15:04 | W.PN.HOSP.TC ---
Today's Communication/Plan
-
continue IV abx
discussed with Dr. Regalado, if doing well can resume Plavix/ASA tomorrow
Assessment / Plan
Assessment / Plan
Severe sepsis 2/2 complicated male UTI with ascending infection and Lt sided pyelonephritis
WBC 35k-->26.3-->14.1-->7.8-->9.2-->9.8k
Associated THO with Cr 1.9-->1.5-->1.2-->1.1-->1.1 : baseline is 1.0
Hemodynamically stable.
LA 3.2-->1.5
10/07 Renal Scan: 1. MODERATE to SEVERELY DECREASED LEFT RENAL FUNCTION (split renal function 28% left and 72% right).
2. 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
Patient is post PCN tube
reviewed with Dr. Georges, if continues to do well potential dc 1-2 days on oral abx
Bibasilar atelectasis has worsened
discussed need for IS, will order duonebs
CXR: Focal parenchymal airspace opacity in the medial and posterior aspect of the left lower lobe. Main differential considerations of pneumonia and/or atelectasis. No evidence for associated pleural effusion.
most likely atelectasis, pt reminded of need to use incentive spirometry
HX BPH
- BCx
Was seen in ER 09/23, Urine demonstrated sens E. Coli, dc on Keflex 500 mg tid x 7 days
- Agree with IV CFP
Bladder US demonstrated 35 cc fluid
- c/w SCHOOL SECRETARY Finasteride
- IV LR will slow to 40 cc/H
- Trend daily BMP
Pt had appt with Dr. Georges as outpt on 10/22. Call placed and discussed with him, input greatly appreciated, concerned pt has left UPJ obstruction
consulted IRAD for potential percutaneous drainage, Plavix and ASA stopped. Timing of procedure as per IRAD, will most likely be 10/11. Heparin to be placed on hold
CT Abd/pelvis Wo Iv Cont
- circumferential wall thickening with surrounding stranding of the urinary bladder consistent with cystitis.
- There is asymmetric left perinephric and periureteral stranding with severe left-sided hydronephrosis to the level of the ureteropelvic junction which likely represents pyelonephritis/ascending infection.
- There is no discrete obstructing stone.
- There is a suggestion of mild layering debris within the left-sided collecting system.
- Moderate prostatomegaly.
- Extensive colonic diverticulosis.
Seizure HX
on Depakote
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
HX Linq
HLD
- on SCHOOL SECRETARY Atorvastatin
Gout on Allopurinol
Daily ETOH use
1 shot of alcohol each night
- Observe
Needs to get OOB to chair more, reviewed with nursing
reviewed with in room, 10/11
Percutaneous nephrostomy done 10/11
DVT Px: SQH
Full code
IP TLM
Anticipated Discharge: 24 - 48 hours
Subjective/Interval History
-
Date of Service: October 11, 2024
Awake, alert, looks better
Objective Data
-
Labs:
Laboratory Results
10/11/24
07:46
PT 13.0
INR 0.95
Vital Signs:
Vital Signs
Temp Pulse Resp BP Pulse Ox
97.3 F 67 18 139/63 94
10/11/24 13:55 10/11/24 13:55 10/11/24 13:55 10/11/24 13:55 10/11/24 13:55
I&O
10/10/24 10/11/24 10/12/24
06:59 06:59 06:59
Intake Total 240 / 240 600 / 600
Output Total 900 / 900 875 / 875
Balance -660 / -660 -275 / -275
Review of Systems
-
History Source: Patient, Family ( and dgt, Wandy at bedside) and Coordinated Provider
Constitutional: Reports Fever (afebrile since 10/05 18:32)
EENT: Reports No Symptoms Reported
Respiratory: Reports No Symptoms
Cardiac: Reports No Symptoms
Abdomen/GI: Reports Abdominal Pain (left lower abd pain)
Genitourinary: Reports Dysuria, Frequency, Difficulty Voiding and Hesitancy
Neuro: Reports No Symptoms
Physical Exam
-
General: Well Developed, Well Nourished and No Apparent Distress
HEENT: Normocephalic, Atraumatic and Moist Mucous Membranes
Respiratory: Rales (bibasilar atelectatic rales, left>Rt, significantly improved); Negative Wheezes or Rhonchi
Cardiac: Regular Rhythm and S1/S2
GI: Soft; Negative Tender or Distended
Genito-urinary: No Costovertebral Tender
Musculoskeletal: No Clubbing, No Cyanosis and No Edema
Neuro: Awake, Alert and Oriented (mentation definitely improved)
[2024-10-11] MEDS: LIPITOR 20 MG PO (17:26)
[2024-10-12] MEDS: STERILE WATER FOR INJECTION 10 ML IV (05:25)
[2024-10-12] MEDS: MAXIPIME 1000 MG IV (05:25)
[2024-10-12 05:26] VITALS: BMI 23.5
[2024-10-12 07:33] LABS: ALT (SGPT) 18 U/L (0-50); AST (SGOT) 19 U/L (17-59); Albumin 2.3 g/dl (3.5-5.0); Alkaline Phosphatase 72 U/L (38-126); Blood Urea Nitrogen 27 mg/dl (9-20); Calcium 7.9 mg/dl (8.4-10.2); Carbon Dioxide 30 mmol/L (22-30); Chloride 109 mmol/L (98-107); Estimated Creatinine Clearance 60 ml/min; Glucose 87 mg/dl (70-99); Potassium 4.4 mmol/L (3.5-5.1); Sodium 141 mmol/L (135-145); Total Bilirubin 0.5 mg/dl (0.2-1.3); Total Protein 4.8 g/dl (6.3-8.2); eGFR > 60.00
[2024-10-12] MEDS: PROSCAR 5 MG PO (07:38)
[2024-10-12] MEDS: ZYLOPRIM 100 MG PO (07:38)
[2024-10-12] MEDS: DEPAKOTE (12 HR RELEASE) 500 MG PO (07:38)
[2024-10-12 08:03] VITALS: BP 145/67
[2024-10-12 08:07] LABS: % Basophils 0.9 % (0-2); % Eosinophils 4.9 % (0-6); % Lymphocytes 20.7 % (20.5-51.1); % Monocytes 19.3 % (1.7-9.3); % Neutrophils 53.2 % (42.2-75.2); Hemoglobin 10.3 g/dL (13.0-18.0); Mean Corp Hgb Conc. 33.2 g/dL (33.0-37.0); Mean Corpuscular Hgb 32.3 pg (27.0-31.0); Mean Corpuscular Volume 97.2 fL (80.0-94.0); Mean Platelet Volume 10.2 fL (7.4-10.4); Platelet Count 230 10^3/uL (130-400); Red Blood Cell Count 3.19 10^6/uL (4.70-6.10); Red Cell Dist. Width 13.8 % (11.5-14.5)
[2024-10-12 08:08] LABS: Absolute Basophils 0.1 10^3/uL (0-0.2); Absolute Eosinophils 0.4 10^3/uL (0-0.7); Absolute Immature Granulocytes 0.1 10^3/uL (0-0.05); Absolute Lymphocytes 1.7 10^3/uL (1.2-3.4); Absolute Monocytes 1.5 10^3/uL (0.1-0.6); Absolute Neutrophils 4.2 10^3/uL (1.4-6.5); Nucleated Red Blood Cells % 0 % (-)
[2024-10-12 10:35] VITALS: BMI 23.5
--- NOTE | 2024-10-12 10:35 | W.PN.URO.CBU ---
Today's Communication / Plan
-
no gu changes but check before discharge if IRAD wants any discharge instructions ie irrigation
Assessment / Plan
-
recurrent uti obsytructed left upj Now perc tube Will try snf and later i will order left antegrade study left kidney in 6 weeks If obstructed will consider dismembered pyeloplsty
Diagnosis
-
Date of Service: October 12, 2024
-
Patient Diagnosis:
Post Op Day:
Patient Diagnosis:
Post Op Day:
Patient Diagnosis:
Post Op Day:
Patient Diagnosis:
Post Op Day:
Patient Diagnosis:
recurrent uti just having comleted targeted uti tx for e coli Now midline back pain and weakness abnormal left kidney with perinephric stranding and upj narrowing
Post Op Day:
Subjective
-
tolerating left perc tube
Objective
-
Vital Signs
Temp Pulse Resp BP Pulse Ox
98.0 F 63 16 145/67 98
10/12/24 08:03 10/12/24 08:03 10/12/24 08:03 10/12/24 08:03 10/12/24 08:03
Intake and Output
10/11/24 10/12/24 10/13/24
06:59 06:59 06:59
Intake Total 600 / 600 760 / 760
Output Total 875 / 875 1300 / 1300
Balance -275 / -275 -540 / -540
Intake:
Oral fluids 600 / 600 360 / 360
IV fluids (Total) 400 / 400
Output:
Urinary Drain Output (Total) 825 / 825
Left Nephrostomy 825 / 825
Urine, Voided 875 / 875 475 / 475
Other:
How many times incontinent 1
SATURATED amount urine
Laboratory Results
10/12/24 06:35
10/12/24 06:35
Review of Systems
-
: Flank Pain
Physical Exam
-
General - well developed, well nourished, no acute distress
Chest - clear bilaterally
Abdomen - soft, non-tender, positive bowel sounds, no CVAT, no incisional pain or distention
Genitalia - normal
Rectal - normal
Skin - warm & dry with no rash
Neuro - AOx3, no motor deficits
Extremities - no clubbing, no cyanosis, no edema
Incision - clean, dry
Dressing - clean, dry, intact
Counseling
-
no gu chakges please ask irad if any orders for discharge such as irrigatio etc
Care Review
Data Reviewed
Discussed with: Hospitalist, Nursing and Family ()
CT Scan: Image Pers Reviewed
Total Time Spent with Patient (in minutes): 60
--- NOTE | 2024-10-12 10:51 | CM ---
CM reviewed chart, patient seen bedside with , discussed plan for discharge today, home with [facility]. IMM reviewed, signed, placed in chart, patient provided with copy. CM will continue to follow for all discharge planning needs.
Plan; home with [facility]
--- NOTE | 2024-10-12 11:44 | W.PN.HOSP.TC ---
Today's Communication/Plan
-
dc to home
Assessment / Plan
Assessment / Plan
Severe sepsis 2/2 complicated male UTI with ascending infection and Lt sided pyelonephritis
WBC 35k-->26.3-->14.1-->7.8-->9.2-->9.8-->8.0k
Associated THO with Cr 1.9-->1.5-->1.2-->1.1-->1.1 : baseline is 1.0
Hemodynamically stable.
LA 3.2-->1.5
10/07 Renal Scan: 1. MODERATE to SEVERELY DECREASED LEFT RENAL FUNCTION (split renal function 28% left and 72% right).
2. 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
Patient is post PCN tube
reviewed with Dr. Georges, cleared for dc
call placed to Dr. Regalado, does not require any special instructions regarding the tube
Bibasilar atelectasis has markedly improved
discussed need for IS, will order duonebs
CXR: Focal parenchymal airspace opacity in the medial and posterior aspect of the left lower lobe. Main differential considerations of pneumonia and/or atelectasis. No evidence for associated pleural effusion.
most likely atelectasis, pt reminded of need to use incentive spirometry
HX BPH
- BCx
Was seen in ER 09/23, Urine demonstrated sens E. Coli, dc on Keflex 500 mg tid x 7 days
- Agree with IV CFP
Bladder US demonstrated 35 cc fluid
- c/w SURVEILLANCE [employer]ATE [employer]ICER Finasteride
Pt had appt with Dr. Georges as outpt on 10/22. Call placed and discussed with him, input greatly appreciated, concerned pt has left UPJ obstruction
consulted IRAD for percutaneous drainage, which was completed 10/11. As per pt and , he was no longer on Plavix and ASA stopped.
CT Abd/pelvis Wo Iv Cont
- circumferential wall thickening with surrounding stranding of the urinary bladder consistent with cystitis.
- There is asymmetric left perinephric and periureteral stranding with severe left-sided hydronephrosis to the level of the ureteropelvic junction which likely represents pyelonephritis/ascending infection.
- There is no discrete obstructing stone.
- There is a suggestion of mild layering debris within the left-sided collecting system.
- Moderate prostatomegaly.
- Extensive colonic diverticulosis.
Seizure HX
on Depakote
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
HX Linq
HLD
- on [employer] Atorvastatin
Gout on Allopurinol
Daily ETOH use
1 shot of alcohol each night
- Observe
Needs to get OOB to chair more, reviewed with nursing
Pt cleared for dc by both urology and IRAD
will dc now
DVT Px: SQH
Full code
IP TLM
see dictated note
More than 30 minutes spent in discharge including
Final examination of the patient
Summarizing hospital stay
Instructions for continuing care to all relevant caregivers
Preparation of discharge records, prescriptions, and referral forms
Total time spent (in minutes): 45
Anticipated Discharge: Today
Subjective/Interval History
-
Date of Service: October 12, 2024
Generally feels well and is anxiously awaiting dc
Objective Data
-
Labs:
Laboratory Results
10/12/24
06:35
WBC 8.0
Hgb 10.3 L
Hct 31.0 L
Plt Count 230 D
Sodium 141
Potassium 4.4
Chloride 109 H
Carbon Dioxide 30
BUN 27 H
Creatinine 1.0
Glucose 87
Calcium 7.9 L
Total Bilirubin 0.5
AST 19
ALT 18
Alkaline Phosphatase 72
Vital Signs:
Vital Signs
Temp Pulse Resp BP Pulse Ox
98.0 F 63 16 145/67 98
10/12/24 08:03 10/12/24 08:03 10/12/24 08:03 10/12/24 08:03 10/12/24 08:03
I&O
10/11/24 10/12/24 10/13/24
06:59 06:59 06:59
Intake Total 600 / 600 760 / 760
Output Total 875 / 875 1300 / 1300
Balance -275 / -275 -540 / -540
Review of Systems
-
History Source: Patient, Family ( at bedside and dgt, Wandy on speaker phone) and Coordinated Provider
Constitutional: Reports Fever (afebrile since 10/05 18:32)
EENT: Reports No Symptoms Reported
Respiratory: Reports No Symptoms
Cardiac: Reports No Symptoms
Abdomen/GI: Reports Abdominal Pain (resolved)
Genitourinary: Reports Dysuria, Frequency, Difficulty Voiding and Hesitancy
Neuro: Reports No Symptoms
Physical Exam
-
General: Well Developed, Well Nourished and No Apparent Distress
HEENT: Normocephalic, Atraumatic and Moist Mucous Membranes
Respiratory: Rales (bibasilar atelectatic rales, left>Rt, significantly improved); Negative Wheezes or Rhonchi
Cardiac: Regular Rhythm and S1/S2
GI: Soft; Negative Tender or Distended
Genito-urinary: No Costovertebral Tender
Musculoskeletal: No Clubbing, No Cyanosis and No Edema
Neuro: Awake, Alert and Oriented (mentation definitely improved)
[2024-10-12 13:25] VITALS: BP 137/66
--- NOTE | 2024-10-12 17:01 | W.DS.TRANS ---
DC Summary - Sr. Social Media & Mobile Manager
-
Discharge Instructions:
Discharge Diagnosis/Procedures Left guided percutaneous nephrostomy tube
placement
Diet Regular
Activity No strenuous activity
Driving Restrictions No driving
Bathing Restrictions cover nephrostomy tube
Blood Work CBC, CMP, UA with culture in 10 days
Other Services VN,PT
Instructions: How to care for a nephrostomy tube
Percutaneous nephrostomy
Stand-Alone Forms:
Changes to Home Medications: Yes
Discharge Medications:
DC Medications w/original date entered in [facility]
allopurinol 100 mg tablet 100 mg PO DAILY Gout 06/07/17
finasteride 5 mg tablet 5 mg PO DAILY Urinary Issue 06/07/17
mecobalamin (vitamin B12) 1,000 mcg chewable tablet (B12 Active) 1,000 mcg PO DAILY Supplement, B12 deficiency 30 days #30 tabs 09/10/24
aspirin 81 mg chewable tablet 81 mg PO DAILY CVA-take everyday #30 tabs 09/11/24
atorvastatin 20 mg tablet 20 mg PO QPM Cholesterol 30 days #30 tabs 09/11/24
divalproex 125 mg capsule,delayed release sprinkle 500 mg PO BID 10/06/24
ciprofloxacin HCl 500 mg tablet (Cipro) 500 mg PO BID #14 tabs 10/12/24
Home Medication Changes
Cipro for next 7 days
(Pt had completed Plavix and was no longer taking prior to admission)
Pending Results: No
== END 2024-10-12 13:42 | disposition home health service (06) | DRG 872 ==
LOC: 4 WEST ACU 22:39
PROVIDERS: Emergency Medicine; Physician Assistant; Radiology Vascular & Interventional Radiology; ADMITTING PHYSICIAN Internal Medicine; ATTENDING PHYSICIAN Internal Medicine; CONSULT PHYSICIAN Specialist; EMERGENCY PHYSICIAN Emergency Medicine
PROC: 0T9430Z Drainage of Left Kidney Pelvis with Drainage Device, Percutaneous Approach (ICD-10-PCS; 2024-10-11)
DX: A41.51 Sepsis due to Escherichia coli [E. coli] (principal); N17.9 Acute kidney failure, unspecified; N13.6 Pyonephrosis; J98.11 Atelectasis; Q61.02 Congenital multiple renal cysts; E87.20 Acidosis, unspecified; R65.20 Severe sepsis without septic shock; G40.909 Epilepsy, unspecified, not intractable, without status epilepticus; E78.00 Pure hypercholesterolemia, unspecified; M10.9 Gout, unspecified; N40.0 Benign prostatic hyperplasia without lower urinary tract symptoms; E78.5 Hyperlipidemia, unspecified; Z86.73 Personal history of transient ischemic attack (TIA), and cerebral infarction without residual deficits; Z79.82 Long term (current) use of aspirin; Z11.52 Encounter for screening for COVID-19
CPT/HCPCS: 50432; 71046; 74176; 78708; 80048; 80053; 81003; 81015; 83605; 85025; 85027; 85610; 87040; 87077; 87086; 87186; 87502; 87811; 93005; 96361; 96374; 97116; 97162; 97166; 99152; 99153; 99285; A9539; C1729; C1769

== ENCOUNTER → 2024-10-23 07:44 | Outpatient (REF) | payer MEDICARE, SELFPAY | LOC: RAD 07:44 | PROVIDERS: ATTENDING PHYSICIAN Internal Medicine Cardiovascular Disease; FAMILY PHYSICIAN Student in an Organized Health Care Education/Training Program | DX: R60.0 Localized edema (principal) | CPT/HCPCS: 93971 ==

== ENCOUNTER → 2024-11-19 07:21 | Outpatient (REF) | payer MEDICARE, SELFPAY ==
[2024-11-19 07:55] VITALS: BP 153/61; BP_SYST 66
[2024-11-19] MEDS: GENTAMICIN 50 IV (08:20)
[2024-11-19 08:53] VITALS: BP 147/62
== END ==
LOC: RADI 07:21
PROVIDERS: ATTENDING PHYSICIAN Specialist; FAMILY PHYSICIAN Student in an Organized Health Care Education/Training Program
DX: Z43.6 Encounter for attention to other artificial openings of urinary tract (principal); N13.1 Hydronephrosis with ureteral stricture, not elsewhere classified
CPT/HCPCS: 50435; C1729; C1769

== ENCOUNTER 2024-11-25 06:20 | Day surgery (SDC) | payer MEDICARE, SELFPAY ==
[2024-11-25] VITALS (10 sets, daily range): BP systolic 125–143; BP diastolic 58–76; BMI 22.4
[2024-11-25] MEDS: NORMOSOL-R/PLASMALYTE-A 1000 IV (10:02)
== END 2024-11-25 13:55 | disposition home or self-care (01) ==
LOC: SDS 06:20
PROVIDERS: ATTENDING PHYSICIAN Urology
DX: N13.1 Hydronephrosis with ureteral stricture, not elsewhere classified (principal)
CPT/HCPCS: 52351; 74420; 76000; A4300

== ENCOUNTER 2024-12-18 09:23 | Inpatient (IN) | payer MEDICARE, SELFPAY ==
[2024-12-12 14:06] VITALS: BMI 25.0
[2024-12-18] VITALS (9 sets, daily range): BP systolic 122–150; BP diastolic 54–80; BMI 25.0
[2024-12-18] MEDS: NORMOSOL-R/PLASMALYTE-A 1000 IV (09:25)
[2024-12-18 16:41] LABS: Hematocrit 38.3 % (39.0-52.0); Hemoglobin 13.2 g/dL (13.0-18.0); Mean Corp Hgb Conc. 34.5 g/dL (33.0-37.0); Mean Corpuscular Hgb 33.5 pg (27.0-31.0); Mean Corpuscular Volume 97.2 fL (80.0-94.0); Mean Platelet Volume 9.7 fL (7.4-10.4); Platelet Count 182 10^3/uL (130-400); Red Blood Cell Count 3.94 10^6/uL (4.70-6.10); White Blood Cell Count 10.3 10^3/uL (4.8-10.8)
[2024-12-18 17:03] LABS: Blood Urea Nitrogen 15 mg/dl (9-20); Calcium 7.7 mg/dl (8.4-10.2); Carbon Dioxide 23 mmol/L (22-30); Chloride 102 mmol/L (98-107); Estimated Creatinine Clearance 50 ml/min; Glucose 122 mg/dl (70-99); Potassium 5.1 mmol/L (3.5-5.1); Sodium 131 mmol/L (135-145); eGFR > 60.00
[2024-12-18] MEDS: LR 1000 IV (17:13)
[2024-12-18] MEDS: LOVENOX 40 MG SC (17:17)
[2024-12-18] MEDS: LIPITOR 20 MG PO (17:17)
--- NOTE | 2024-12-18 18:01 | PTCARENOTE ---
Pt arrived to floor in bed, drowsy but arousable, generalized weakness. Denies pain. VSS, on 2L NC, shallow respirations, LS diminished. 5 Lap sites on abdomen, reddened area from nephrostomy tube removal, band aide placed. Protective foam located
on lower back. Pt denies pain. Full assessment and admission completed.
[2024-12-18] MEDS: DEPAKOTE SPRINKLE 500 MG PO (20:10)
[2024-12-18] MEDS: TYLENOL 650 MG PO (22:41)
[2024-12-19] MEDS: PERCOCET 5/325 1 TABLET PO (03:19)
[2024-12-19 03:32] VITALS: BP 133/67
[2024-12-19 07:09] VITALS: BP 133/65
[2024-12-19 08:05] LABS: Hematocrit 33.3 % (39.0-52.0); Hemoglobin 11.5 g/dL (13.0-18.0); Mean Corp Hgb Conc. 34.5 g/dL (33.0-37.0); Mean Corpuscular Hgb 33.6 pg (27.0-31.0); Mean Corpuscular Volume 97.4 fL (80.0-94.0); Mean Platelet Volume 10.7 fL (7.4-10.4); Platelet Count 216 10^3/uL (130-400); Red Blood Cell Count 3.42 10^6/uL (4.70-6.10); White Blood Cell Count 11.4 10^3/uL (4.8-10.8)
[2024-12-19 08:46] LABS: Blood Urea Nitrogen 18 mg/dl (9-20); Carbon Dioxide 23 mmol/L (22-30); Chloride 101 mmol/L (98-107); Estimated Creatinine Clearance 42 ml/min; Glucose 81 mg/dl (70-99); Potassium 4.9 mmol/L (3.5-5.1); Sodium 130 mmol/L (135-145); eGFR 54.17
--- NOTE | 2024-12-19 08:54 | W.PN.URO.CBU ---
Today's Communication / Plan
-
Discharge
Assessment / Plan
-
84M with L UPJ obstruction
s/p robotic pyeloplasty 12/18
- Reg diet
- Ambulate with PT/OT
- Mild anemia likely dilutional
- IS
- Maintain guzman until next week
- 5 day course of Levaquin at discharge given recent UTI
- Likely discharge today
Diagnosis
-
Date of Service: December 19, 2024
-
Patient Diagnosis:
Left UPJ obstruction
BPH
Post Op Day: 1 s/p L pyeloplasty
Subjective
-
tolerating diet
not ambulated yet
pain controlled
feeling well
Objective
-
Vital Signs
Temp Pulse Resp BP Pulse Ox
98.1 F 90 17 133/65 95
12/19/24 07:09 12/19/24 07:09 12/19/24 07:09 12/19/24 07:09 12/19/24 07:09
Intake and Output
12/18/24 12/19/24 12/20/24
06:59 06:59 06:59
Intake Total 1280 / 1280
Output Total 150 / 150 450 / 450
Balance -150 / -150 830 / 830
Intake:
Oral fluids 480 / 480
IV fluids (Total) 800 / 800
Output:
Urine, Guzman 150 / 150 450 / 450
Laboratory Results
12/19/24 07:13
12/19/24 07:13
Physical Exam
-
General - well developed, well nourished, no acute distress
Chest - clear bilaterally
Abdomen - soft, non-tender, no incisional pain or distention
Guzman in place, clear urine, some old blood in bottom of tubing
Rectal - normal
Skin - warm & dry with no rash
Extremities - no clubbing, no cyanosis, no edema
Incision - clean, dry
Dressing - clean, dry, intact
[2024-12-19 09:33] VITALS: BP 118/61; PULSE 97; O2SAT 94
--- NOTE | 2024-12-19 09:42 | VNURNOTE ---
Home Health Liaison met with patient at bedside to discuss [facility] nurse/therapy, visits, schedule and homebound status. Patient deferred decision to his spouse. This author called spouse Gabby Segura. Explained services. She is agreeable and
understands that visits at home will be 2-3 x per week to assess and teach medical and guzman management. She is aware that [facility] will contact them for start of care in 1-2 days after discharge from .
[facility] referral completed in [facility].
[2024-12-19 10:20] VITALS: BP 91/57; PULSE 105; O2SAT 96
[2024-12-19] MEDS: SENOKOT 17.2 MG PO (10:21)
[2024-12-19] MEDS: LOW STRENGTH ASPIRIN 81 MG PO (10:23)
[2024-12-19] MEDS: DEPAKOTE SPRINKLE 500 MG PO (10:23)
[2024-12-19] MEDS: LEVAQUIN 500 MG PO (10:24)
[2024-12-19] MEDS: PROSCAR 5 MG PO (10:25)
[2024-12-19] MEDS: ZYLOPRIM 100 MG PO (10:25)
[2024-12-19 11:00] VITALS: BP 110/63
--- NOTE | 2024-12-19 11:17 | CM ---
Patient seen at bedside in [address] [place] [address] with patient and daughter. Patient for discharge home to [facility] with 3 steps to enter and patient stated he has a walker. Patient requested [facility] and referral sent via tt and patient daughter and
here to transport patient. [facility] uses [facility] [place], [facility] and patient PCP is Dr. Mathews. IMM completed and signed form placed on chart. CM will continue to follow for discharge planning needs.
Plan; home with [facility] to follow
== END 2024-12-19 11:35 | disposition home health service (06) | DRG 661 ==
LOC: 2 SOUTH 09:23
PROVIDERS: ADMITTING PHYSICIAN Urology; FAMILY PHYSICIAN Student in an Organized Health Care Education/Training Program
PROC: 8E0W4CZ Robotic Assisted Procedure of Trunk Region, Percutaneous Endoscopic Approach (ICD-10-PCS; 2024-12-18)
PROC: 0TQ44ZZ Repair Left Kidney Pelvis, Percutaneous Endoscopic Approach (ICD-10-PCS; 2024-12-18)
DX: N13.5 Crossing vessel and stricture of ureter without hydronephrosis (principal)
CPT/HCPCS: 88305; 80048; 85027; 86850; 86900; 86901; 97162; 97167; 99406; C2617

== ENCOUNTER 2024-12-20 03:10 | Inpatient (IN) | payer MEDICARE, SELFPAY ==
[2024-12-19 21:25] VITALS: BP 111/70
--- NOTE | 2024-12-19 22:16 | EDRN ---
Pt left this morning with a guzman draining bloody urine. Family found pt was wet, leaking from penis around guzman catheter. Pt was changed into new shorts about 1 hour ago. Pt denies retention of urine stating he urinates a lot. 100ml emptied
from guzman bag, there was urine in the guzman tubing. Bladder scan = 0. This RN checked guzman insertion site - shorts are dry and there is no drainage.
[2024-12-19] MEDS: NSS 500 IV (23:13)
[2024-12-19 23:17] VITALS: BP 123/54
[2024-12-19 23:25] LABS: % Basophils 0.1 % (0-2); % Eosinophils 0.1 % (0-6); % Immature Granulocytes 0.5 % (0-0.5); % Lymphocytes 10.5 % (20.5-51.1); % Monocytes 15.4 % (1.7-9.3); % Neutrophils 73.4 % (42.2-75.2); Absolute Immature Granulocytes 0.1 10^3/uL (0-0.05); Absolute Lymphocytes 1.1 10^3/uL (1.2-3.4); Absolute Monocytes 1.6 10^3/uL (0.1-0.6); Absolute Neutrophils 7.5 10^3/uL (1.4-6.5); Hematocrit 26.7 % (39.0-52.0); Hemoglobin 9.4 g/dL (13.0-18.0); Mean Corp Hgb Conc. 35.2 g/dL (33.0-37.0); Mean Corpuscular Hgb 33.9 pg (27.0-31.0); Mean Corpuscular Volume 96.4 fL (80.0-94.0); Mean Platelet Volume 10.2 fL (7.4-10.4); Nucleated Red Blood Cells % 0 % (-); Platelet Count 189 10^3/uL (130-400); Red Blood Cell Count 2.77 10^6/uL (4.70-6.10); Red Cell Dist. Width 12.9 % (11.5-14.5); White Blood Cell Count 10.1 10^3/uL (4.8-10.8)
[2024-12-19 23:29] LABS: ALT (SGPT) < 10 U/L (0-50); AST (SGOT) 14 U/L (17-59); Albumin 2.6 g/dl (3.5-5.0); Alkaline Phosphatase 43 U/L (38-126); Blood Urea Nitrogen 24 mg/dl (9-20); Calcium 7.7 mg/dl (8.4-10.2); Carbon Dioxide 24 mmol/L (22-30); Chloride 99 mmol/L (98-107); Glucose 118 mg/dl (70-99); Magnesium 1.9 mg/dl (1.6-2.3); Potassium 4.9 mmol/L (3.5-5.1); Sodium 127 mmol/L (135-145); Total Bilirubin 0.5 mg/dl (0.2-1.3); Total Protein 4.9 g/dl (6.3-8.2); eGFR 39.26
[2024-12-19 23:31] LABS: Lactic Acid 2.7 mmol/L (0.7-2.0)
[2024-12-20] VITALS (8 sets, daily range): BP systolic 91–126; BP diastolic 49–60; PULSE 75; O2SAT 98; BMI 26.7
--- NOTE | 2024-12-20 00:14 | ED.GENMED ---
History of Present Illness
General
Chief Complaint: Catheter/Tube Problem
Source: patient and family
Exam Limitations: none
Time Seen by Provider: 12/19/24 22:38
Nursing documentation reviewed up to this point in time: agreed with
History of Present Illness
History of Present Illness:
Patient discharged from the hospital this morning, after pyeloplasty with Dr. Negrete, presents to ED secondary to worsening generalized weakness along with leakage of urine around the Bocanegra catheter, which was placed prior to discharge. Denies
fever or chills. Denies nausea or vomiting. Denies headache. Denies dizziness. During the procedure, patient's nephrostomy tube was removed.
Past History
Past History
ED Past Medical History: Hypercholesterolemia, Seizures (1 prior seizure in the past) and Other (Gout)
PSI?: No
Social History
Tobacco: Non-smoker
Alcohol: Daily (Patient reports taking 1 shot of alcohol each night)
Drug: None
Personal:
Living: with family
Family History
Family History: Other
Review of Systems
Review of Systems
Allergies reviewed?: Yes
All Other Systems: ROS reviewed and negative except as documented in HPI and ROS
Constitutional: Reports fatigue; Denies fever or chills
EENT: Reports no symptoms
Respiratory: Reports no symptoms; Denies cough
Cardiac: Reports no symptoms
ABD/GI: Reports no symptoms; Denies vomiting or diarrhea
Musculoskeletal: Reports no symptoms
Skin: Reports no symptoms
Neurological: Reports weakness; Denies dizzy or headache
Phy Exam
Physical Exam
Physical Exam:
Physical Exam
General: mild distress. afebrile. weak appearing
Head: nc/at. eomi
Neck: supple. normal range of motion.
Heart: s1/s2 regular rate and rhythm
Lungs: no acute respiratory distress. clear bilaterally
Abdomen: normal bowel sounds. multiple incision site noted over mid-abdomen with mild tenderness without distention/erythema/drainage.
Neuro: alert and oriented x 3. no focal neurological deficits
Skin: no rash
Psychiatric: well kept. interactive and cooperative
Extremities: no edema. no calf tenderness.
Course
Orders/Labs/Results
Orders:
Orders
12/19/24 22:47
Urinalysis Reflex To Culture Urgent
Date Specimen was Collected: 12/20/24
Time Specimen was Collected: 00:12
12/19/24 22:55
0.9% Sodium Chloride 500 ml [Nss] 500 ml IV BOLUS
12/19/24 23:10
Complete Blood Count/With Diff Urgent
Comprehensive Metabolic Panel Urgent
Lactic Acid Q4H
Comment: CANCEL 2nd LACTIC ACID IF 1st LACTIC ACID IS LESS THAN 2
Magnesium Urgent
Blood Culture Q30M
ANNE Source: Blood/Venous
Specimen Description:
12/19/24 23:30
Blood Culture Q30M
ANNE Source: Blood/Venous
Specimen Description:
12/20/24 00:14
Osmolality, Random Urine Urgent
Date Specimen was Collected: 12/20/24
Time Specimen was Collected: 00:12
Comment: ADD ON
Urine Creatinine Urgent
Date Specimen was Collected: 12/20/24
Time Specimen was Collected: 00:12
Comment: ADD ON
Urine Microscopic Reflex Cult Urgent
Urine Sodium Urgent
Date Specimen was Collected: 12/20/24
Time Specimen was Collected: 00:12
Comment: ADD ON
Urine Culture Urgent
ANNE Source: U
Specimen Description:
Date Specimen was Collected: 12/20/24
Time Specimen was Collected: 00:12
12/20/24 00:16
Acetaminophen [Tylenol] 650 mg PO NOW STA
Pantoprazole [Protonix IV] 40 mg IV NOW STA
12/20/24 01:21
0.9% Sodium Chloride 500 ml [Nss] 500 ml IV BOLUS
CefTRIAXone [Rocephin] 1,000 mg IV NOW STA
12/20/24 02:00
Flush (0.9% Sodium Chloride) [Flush (Nss)] See Dose Instructions IV PER PROTOCOL
12/20/24 02:01
CT Abd/pel Without Iv Or Oral Urgent
Comment:
Reason For Exam: ARF/UTI with recent pyeloplasty
12/20/24 02:38
Admit/Transfer Patient As Directed
Co-Sign Provider:
Level of Care: Inpatient admission
Assign to:: Medical/Surgical
Physician / Group: Bebe/Hospitalist
Diagnosis: UTI s/p pyeloplasty, Bocanegra catheter in place
Reason for Hospitalization: UTI s/p pyeloplasty, Bocanegra catheter in place
Expected length of stay greater than two midnights?: Yes
ELOS- Estimated Length of Stay in days: 3
I certify the patient meets the requirements for IP care: Yes
PRN Pain Medication Management As Directed
May give lesser potent ordered pain med per pt: Yes
preference::
Protocol:: Medication orders for pain may be administered in a
manner that supports deferring to patient preference
when the pt is:
- Requesting an ordered lesser potent pain medication.
Least to most potent pain medications are defined
as: acetaminophen < NSAID < tramadol < opioids
(morphine, oxycodone, hydromorphone).
- Requesting a lesser dose of the same medication IF
ORDERED.
- Requesting a less intrusive route of administration
if both routes are prescribed by the provider (PO <
IV).
12/20/24 02:40
Code Status As Directed
Resuscitation Status: Full Code
12/20/24 03:42
Lactic Acid Q4H
Comment: CANCEL 2nd LACTIC ACID IF 1st LACTIC ACID IS LESS THAN 2
12/20/24 04:43
0.9% Sodium Chloride 1000 ml [Nss] 1,000 ml IV 75 mls/hr
Acetaminophen [Tylenol] 325 mg PO ONCE PRN pain
Bisacodyl [Dulcolax] 10 mg RECTAL [id number] PRN
Docusate W/Senna [Senokot-S] 1 tablet PO BIDPRN PRN
Polyethylene Glycol Powder [Miralax] 17 grams PO DAILYPRN PRN
12/20/24 04:43
UROLOGY CONSULT Routine
Consulting Provider: Mega Diop Jr.
Was physician already notified: Yes
Comment: UTI, possible bacteremia s/p pyeloplasty 12/18
Activity As Directed
Activity Level: With Assistance
Pneumatic Compression Sleeves As Directed
Type: Knee high
Vital Signs As Directed
Frequency: Per unit guidelines
Pulse Ox/spot Check [RESP] Routine
Quantity: 1
DX Deep Vein Thrombosis Video Routine
12/20/24 05:27
Basic Metabolic Panel IN AM
Complete Blood Count/With Diff IN AM
12/20/24 08:00
Allopurinol [Zyloprim] 100 mg PO DAILY
Divalproex Delayed Rel. 12 Hr [Depakote (12 Hr Release)] 500 mg PO BID
Finasteride [Proscar] 5 mg PO DAILY
mecobalamin (vitamin B12) [B12 Active] 1,000 mcg PO DAILY
12/20/24 18:00
Atorvastatin [Lipitor] 20 mg PO QPM
12/21/24 00:00
CefTRIAXone [Rocephin] 1,000 mg IV Q24H
Abnormal Lab Results
12/19/24 12/20/24
23:10 00:14
RBC 2.77 L 10^6/uL
(4.70-6.10)
Hgb 9.4 L g/dL
(13.0-18.0)
Hct 26.7 L %
(39.0-52.0)
MCV 96.4 H fL
(80.0-94.0)
MCH 33.9 H pg
(27.0-31.0)
Abs Immat Gran (auto) 0.1 H 10^3/uL
(0-0.05)
Absolute Neuts (auto) 7.5 H 10^3/uL
(1.4-6.5)
Absolute Lymphs (auto) 1.1 L 10^3/uL
(1.2-3.4)
Absolute Monos (auto) 1.6 H 10^3/uL
(0.1-0.6)
Lymphocytes % 10.5 L %
(20.5-51.1)
Monocytes % 15.4 H %
(1.7-9.3)
Sodium 127 L mmol/L
(135-145)
BUN 24 H mg/dl
(9-20)
Creatinine 1.7 H mg/dL
(0.7-1.3)
Glucose 118 H mg/dl
(70-99)
Lactic Acid 2.7 H mmol/L
(0.7-2.0)
Calcium 7.7 L mg/dl
(8.4-10.2)
AST 14 L U/L
(17-59)
Total Protein 4.9 L g/dl
(6.3-8.2)
Albumin 2.6 L g/dl
(3.5-5.0)
Urine Ketones 1+ A
(Negative)
Ur Occult Blood Reflex 4+ A
(Negative)
Urine Bilirubin 1+ A
(Negative)
Leukocyte Esterase Rfl 2+ A
(Negative)
Urine RBC >100 A /HPF
(0-2)
Urine Bacteria (Reflex) Moderate A
(Negative)
Urine Yeast Few A
(Negative)
Urine Albumin (Reflex) 4+ A
(Neg - Trace)
12/19/24 23:10
12/19/24 23:10
Vital Signs
Initial and Last Documented VS:
Initial Vital Signs
Temp Pulse Resp BP Pulse Ox
98.2 F 110 20 111/70 96
12/19/24 21:25 12/19/24 21:25 12/19/24 21:25 12/19/24 21:25 12/19/24 21:25
Last Documented Vital Signs
Temp Pulse Resp BP Pulse Ox
97.7 F 71 16 129/53 96
12/21/24 07:10 12/21/24 07:10 12/21/24 07:10 12/21/24 07:10 12/21/24 07:10
MDM/Problems Addressed
MDM/Problems Addressed:
History and exam along with blood work and urinalysis concerning for generalized weakness, likely secondary to UTI, with concern for potential development of bacteremia, especially with recent procedure. As such, patient will be admitted for IV
antibiotics and further evaluation.
Notified on-call urology, , who requests CT abdomen/pelvis without contrast.
*Critical Care Note
Total Time (30-74mins, 75-104mins- exclusive of procedures): Not Applicable
ED Attending Note
-
Portions of this chart may have been created with voice recognition software.� Occasional wrong word or��sound alike� substitutions may have occurred due to the inherent limitations of voice recognition software.
Discharge Plan
Departure
Patient Disposition: Admit
Date of Disposition: 12/20/24
Time of Disposition: 01:27
Admit to: Telemetry
Presentation/result/management discussed w/ accepting MD/DO: Hospitalist
Discharge Problem:
Acute UTI (urinary tract infection)
Interventions
Interventions:
*Risk Screen - Suicide Last Done: 12/20/24 04:59
*General Assessment Last Done: 12/19/24 21:25
*Neglect/Abuse Screening Last Done: 12/19/24 22:13
*ED- Fall Risk Assessment Last Done: 12/19/24 23:22
*Nursing Disposition Last Done: 12/20/24 04:23
BZ-Usuheh-Llhtbvgous Assessment Last Done: 12/19/24 22:13
ED-Male Genitourinary Assessment Last Done: 12/19/24 22:13
Discharge Date and Time
Discharge Date/Time: 12/20/24 04:23
[2024-12-20] MEDS: TYLENOL 650 MG PO ×2 (00:21→12:48)
[2024-12-20] MEDS: PROTONIX IV 40 MG IV (00:21)
[2024-12-20 00:26] LABS: Urine Albumin 4+ (Neg - Trace); Urine Bilirubin 1+ (Negative); Urine Character Cloudy (Clear); Urine Color Brown; Urine Glucose Negative (Negative); Urine Ketone 1+ (Negative); Urine Leukocyte 2+ (Negative); Urine Nitrite Negative (Negative); Urine Occult Blood 4+ (Negative); Urine Urobilinogen 1+ (Neg - 1+); Urine pH 6.5 (5.0-9.0)
[2024-12-20 00:57] LABS: Urine Red Blood Cell >100 /HPF (0-2)
[2024-12-20 00:58] LABS: Urine Bacteria Moderate (Negative); Urine Yeast Few (Negative)
[2024-12-20] MEDS: NSS 500 IV (01:38)
--- NOTE | 2024-12-20 02:02 | HPS.HSE ---
Addendum entered and electronically signed by Yudelka Spence, 12/20/24 02:48:
# Acute on chronic Anemia, post-operative Hgb 9.4 from 11.5 this morning, likely multifactorial due to hematuria and dilutional
-hold aspirin for now
-monitor symptoms
-repeat CBC in am
-MCV 96.4, B-12 low at 307 on 09/01/24, continue home Vitamin B-12
Original Note:
Family Physician
-
Family Physician: Kasia Mathews MD, [facility]
Chief Complaint
-
Generalized weakness status post robotic pyeloplasty December 18
History of Present Illness
Patient is an 84-year-old gentleman with past medical history significant for UTI with sepsis, left UPJ obstruction and left hydronephrosis, hyperlipidemia, gout, BPH, seizure, squamous cell carcinoma left leg, open angle glaucoma who presents the
emergency department on December 19 secondary to worsening generalized weakness and leakage around the Bocanegra catheter site status post robotic pyeloplasty on December [address] Negrete. No further episodes of leakage in the emergency department and the
Bocanegra catheter is draining cranberry colored urine. He returned to the hospital the same day as his hospital discharge for this procedure. The patient has lower abdominal discomfort and distention. The patient denies nausea vomiting, no fevers no
chills no chest pain no shortness of breath no diarrhea.
ED treatment�2 L IV fluid bolus, Tylenol, IV Protonix, IV Rocephin
Medical History
Past Medical History
Past Medical History: Reports Hypercholesterolemia, Seizures and Other (BPH, gout)
Past Surgical History: Reports Other
Social History
Unable to obtain full social history at this time due to: Patient Intubation
Family History
Family History: Not pertinent
Allergies / Home Medications
Allergies reflects when Allergies were last updated in [employer].
Home Medications with original date entered in [employer]
Allergy/Medication List:
Allergies
Allergy/AdvReac Type Severity Reaction Status Date / Time
levetiracetam (From [facility]) Allergy personality Verified 12/19/24 21:25
change
Home Medications
allopurinol 100 mg tablet 100 mg PO DAILY Gout 06/07/17
finasteride 5 mg tablet 5 mg PO DAILY Urinary Issue 06/07/17
mecobalamin (vitamin B12) 1,000 mcg chewable tablet (B12 Active) 1,000 mcg PO DAILY Supplement, B12 deficiency 30 days #30 tabs 09/10/24
aspirin 81 mg chewable tablet 81 mg PO DAILY CVA-take everyday #30 tabs 09/11/24
atorvastatin 20 mg tablet 20 mg PO QPM Cholesterol 30 days #30 tabs 09/11/24
divalproex 125 mg capsule,delayed release sprinkle 500 mg PO BID 10/06/24
Probiotic 1 tab PO DAILY 12/12/24
acetaminophen 325 mg tablet (Tylenol) 325 mg PO ONCE PRN pain 12/12/24
levofloxacin 500 mg tablet 500 mg PO DAILY #7 tabs 12/19/24
oxycodone-acetaminophen 5 mg-325 mg tablet 1 tab PO Q4HPRN PRN Moderate pain #5 tabs 12/19/24
Review of Systems
-
A 12 point ROS was completed and negative except as noted: Yes
Physical Exam
Vital Signs
Vital Signs
Temp Pulse Resp BP Pulse Ox
98 F 72 16 123/52 96
12/19/24 23:17 12/20/24 01:00 12/19/24 23:17 12/20/24 01:00 12/20/24 01:00
Physical Exam
General: Well Developed, Well Nourished, No Apparent Distress, Comfortable and Conversant
HEENT: NormoCephalic, Anicteric and Moist mucous membranes
Respiratory: Clear
Cardiac: S1/S2 and Regular Rhythm
GI: Soft, Non Tender, Non Distended and Normal Bowel Sounds
Genito-urinary: Bloody Urine (300 mL of cranberry colored urine in the Bocanegra catheter bag)
Musculoskeletal: No Clubbing, No Cyanosis and No Edema
Skin: Warm and Dry
Neuro: No Motor Deficits and Nonfocal/grossly intact
Laboratory Results
-
12/19/24 23:10
12/19/24 23:10
Laboratory Results
Lactic Acid 2.7 mmol/L (0.7-2.0) H 12/19/24 23:10
Total Bilirubin 0.5 mg/dl (0.2-1.3) 12/19/24 23:10
AST 14 U/L (17-59) L 12/19/24 23:10
ALT < 10 U/L (0-50) 12/19/24 23:10
Alkaline Phosphatase 43 U/L (38-126) 12/19/24 23:10
Data Reviewed
-
Lab Data: Labs Reviewed by me and Discussed with Physician
Impression/Plan
-
IMPRESSION:
# Generalized weakness and likely urinary tract infection with concern for bacteremia status post robotic pyeloplasty for left UPJ obstruction with Dr. Negrete on July 20
- Urology has been consulted through the emergency department and the recommendation is for noncontrast CT scan which is pending at this time
- Continue Bocanegra catheter care and IV Rocephin, no signs of leakage at this time.
- Await urine cultures and blood cultures
- Lactic acidosis likely secondary to infection and will repeat serial lactic acid levels post IV fluids
# Acute renal failure with creatinine up to 1.7 from 1.3 this morning, likely prerenal azotemia and volume depletion
-Continue gentle IV hydration and monitor with repeat labs in the morning
# Hyponatremia, sodium 127, likely hypovolemic
- Monitor with repeat labs after IV fluids
# Gout
# BPH
# Seizure disorder history
# Hyperlipidemia
DVT prophylaxis-PCD's
Full code
[2024-12-20] MEDS: ROCEPHIN 1000 MG IV (02:16)
--- NOTE | 2024-12-20 03:28 | EDRN ---
Dr Spence informed Mg level resulted on ED blood work = 1.9. No need for second Mg level. Add on Mg level cancelled
[2024-12-20 03:59] LABS: Lactic Acid 0.8 mmol/L (0.7-2.0)
[2024-12-20] MEDS: NSS 1000 IV (04:53)
[2024-12-20 06:13] LABS: % Basophils 0.3 % (0-2); % Eosinophils 0.3 % (0-6); % Immature Granulocytes 0.3 % (0-0.5); % Lymphocytes 18.1 % (20.5-51.1); % Monocytes 14.7 % (1.7-9.3); % Neutrophils 66.3 % (42.2-75.2); Absolute Lymphocytes 1.6 10^3/uL (1.2-3.4); Absolute Monocytes 1.3 10^3/uL (0.1-0.6); Absolute Neutrophils 5.8 10^3/uL (1.4-6.5); Hematocrit 25.4 % (39.0-52.0); Hemoglobin 8.7 g/dL (13.0-18.0); Mean Corp Hgb Conc. 34.3 g/dL (33.0-37.0); Mean Corpuscular Volume 96.2 fL (80.0-94.0); Mean Platelet Volume 10.8 fL (7.4-10.4); Nucleated Red Blood Cells % 0 % (-); Platelet Count 173 10^3/uL (130-400); Red Blood Cell Count 2.64 10^6/uL (4.70-6.10); White Blood Cell Count 8.8 10^3/uL (4.8-10.8)
[2024-12-20 06:32] LABS: Blood Urea Nitrogen 22 mg/dl (9-20); Calcium 7.5 mg/dl (8.4-10.2); Carbon Dioxide 23 mmol/L (22-30); Chloride 105 mmol/L (98-107); Estimated Creatinine Clearance 35 ml/min; Glucose 97 mg/dl (70-99); Sodium 131 mmol/L (135-145); eGFR 45.62
--- NOTE | 2024-12-20 07:33 | CON.MD ---
Consultation - Medical
-
pt with hx of recurrent UTI and left upj obstruction
underwent robotic pyeloplasty with dr clemente kumar- discharged POD#1
returned to Er with weakness, some cath leakage
no fevers, urine oconnor colored, passing gas
cr elevated, hgb down
ct shows well positioned stent and guzman- stable left renal cyst- some blood around renal pelvis in surgical bed, no obvious urine leak (my read)
on exam:
afvss
good uo- clearing
abd benign
plan
keep guzman and stent
trend labs and cultures
PT
Consultation
-
Date/Time Consultation Requested: 12/20/2024 at 2am
Date/Time Consultation Performed: 12/20/2024 at 7am
Requesting Provider: dr youngblood
Performing Provider: dr manzanares
Reason for Consultation: post op weakness
[2024-12-20] MEDS: ZYLOPRIM 100 MG PO (07:45)
[2024-12-20] MEDS: PROSCAR 5 MG PO (07:45)
[2024-12-20] MEDS: DEPAKOTE (12 HR RELEASE) 500 MG PO (07:45)
--- NOTE | 2024-12-20 10:13 | W.PN.HOSP.TC ---
Today's Communication/Plan
-
Trend hemoglobin
Advance diet
PT/OT
Check cultures
Serum osmolarity
Urine studies
Assessment / Plan
Assessment / Plan
Gen-AAOx3, NAD
HEENT-NC, AT, anicteric, clear oral mm
Neck-supple
CV-reg, no M, +S1/S2
Lungs-clear B/L
Abd-soft, mild distention, mild diffuse tenderness with subcutaneous emphysema palpated, surgical wounds intact without drainage
Ext-no edema
Musculoskeletal-no cyanosis, clubbing
Skin-warm and dry
Neuro-grossly non-focal
Psych-calm, cooperative
THO on CKD 3a -suspect THO related to recent left renal robotic pyeloplasty December 18, with postoperative intrarenal hematoma, hydronephrosis.
Component of volume depletion suspected to contribute to THO. Continue IV fluid administration. Trend renal function. Continue Bocanegra catheter per urology.
Large acute left renal hematoma -noted on CT scan of the left renal hilum around the left renal pelvis. Left double-J ureteral stent in place. Mild to moderate distention of the left intrarenal collecting system with air and fluid and a large
amount of left perinephric edema.
Urinalysis does not reveal significant pyuria. Clinically doubt UTI, currently on empiric ceftriaxone pending cultures.
Acute postoperative blood loss anemia, acute on chronic anemia -due to above renal hematoma. Hemoglobin down to 8.7 this morning. Trend hemoglobin. Consent for transfusion obtained. Relatively hemodynamically stable. Suspect generalized
weakness is multifactorial and related to acute anemia, hyponatremia, THO, volume depletion.
Baseline chronic anemia noted with hemoglobin running between 10 and 11.
Postoperative subcutaneous emphysema -noted on exam.
Acute postoperative hyponatremia -sodium 127 last night, improved to 131 this morning. Suspect volume depletion contributing. Check urine studies.
Diverticulosis
History of gout
Epilepsy -continue Depakote.
BPH
Hyperlipidemia -atorvastatin.
Ambulatory dysfunction -uses a walker at baseline. Consult PT/OT.
Full code
Anticipated Discharge: > 48 hours
Subjective/Interval History
-
Date of Service: December 20, 2024
Patient seen and examined. Complaining of neck weakness, generalized weakness.
Objective Data
-
Labs:
Laboratory Results
12/19/24 12/20/24
23:10 05:27
WBC 10.1 8.8
Hgb 9.4 L 8.7 L
Hct 26.7 L 25.4 L
Plt Count 189 173
Sodium 127 L 131 L
Potassium 4.9 5.0
Chloride 99 105
Carbon Dioxide 24 23
BUN 24 H 22 H
Creatinine 1.7 H 1.5 H
Glucose 118 H 97
Calcium 7.7 L 7.5 L
Total Bilirubin 0.5
AST 14 L
ALT < 10
Alkaline Phosphatase 43
Vital Signs:
Vital Signs
Temp Pulse Resp BP Pulse Ox
97.7 F 73 16 124/58 98
12/20/24 07:10 12/20/24 07:10 12/20/24 07:10 12/20/24 07:10 12/20/24 09:52
I&O
12/19/24 12/20/24 12/21/24
06:59 06:59 06:59
Output Total 625 / 625
Balance -625 / -625
Review of Systems
-
History Source: Patient
All other systems: Reviewed and negative
[2024-12-20 10:48] LABS: Osmolality Urine 376 mOsm/kg (300-900)
[2024-12-20 10:57] LABS: Osmolality Serum 276 mOsm/kg (275-300)
[2024-12-20 11:08] LABS: Urine Sodium 32 mmol/L (30-90)
[2024-12-20] MEDS: VITAMIN B-12 1000 MCG PO (12:54)
--- NOTE | 2024-12-20 16:46 | CM ---
Alert awake oriented patient who lives with his Farideh who lives in a 1 story home with 3 step to enter. He is assisted in all activities of daily living.Will need PT OT for dc planning .Uses walker.
VN hx / Alan history
Pharmacy [facility]
PCP DR Mathews
PLAN Needs PT OT evals for dc planning
[2024-12-20 17:02] LABS: Hematocrit 24.6 % (39.0-52.0); Hemoglobin 8.6 g/dL (13.0-18.0)
[2024-12-20] MEDS: LIPITOR 20 MG PO (17:43)
[2024-12-20] MEDS: DEPAKOTE SPRINKLE 500 MG PO (21:18)
[2024-12-21] MEDS: ROCEPHIN 1000 MG IV ×2 (00:22→23:09)
[2024-12-21] MEDS: STERILE WATER FOR INJECTION 10 ML IV ×2 (00:23→23:09)
[2024-12-21 05:50] LABS: % Basophils 0.4 % (0-2); % Eosinophils 2.2 % (0-6); % Immature Granulocytes 0.4 % (0-0.5); % Lymphocytes 24.9 % (20.5-51.1); % Monocytes 12.2 % (1.7-9.3); % Neutrophils 59.9 % (42.2-75.2); Absolute Eosinophils 0.2 10^3/uL (0-0.7); Absolute Lymphocytes 1.7 10^3/uL (1.2-3.4); Absolute Monocytes 0.8 10^3/uL (0.1-0.6); Hematocrit 24.1 % (39.0-52.0); Hemoglobin 8.2 g/dL (13.0-18.0); Mean Corpuscular Hgb 33.5 pg (27.0-31.0); Mean Corpuscular Volume 98.4 fL (80.0-94.0); Mean Platelet Volume 10.9 fL (7.4-10.4); Nucleated Red Blood Cells % 0 % (-); Platelet Count 163 10^3/uL (130-400); Red Blood Cell Count 2.45 10^6/uL (4.70-6.10); Red Cell Dist. Width 13.1 % (11.5-14.5); White Blood Cell Count 6.7 10^3/uL (4.8-10.8)
[2024-12-21 06:12] LABS: Blood Urea Nitrogen 17 mg/dl (9-20); Calcium 7.5 mg/dl (8.4-10.2); Carbon Dioxide 24 mmol/L (22-30); Chloride 109 mmol/L (98-107); Estimated Creatinine Clearance 44 ml/min; Glucose 83 mg/dl (70-99); Potassium 4.4 mmol/L (3.5-5.1); Sodium 134 mmol/L (135-145); eGFR 59.63
[2024-12-21 07:10] VITALS: BP 129/53
[2024-12-21] MEDS: TYLENOL 650 MG PO ×2 (07:42→21:03)
[2024-12-21] MEDS: VITAMIN B-12 1000 MCG PO (07:42)
[2024-12-21] MEDS: ZYLOPRIM 100 MG PO (07:42)
[2024-12-21] MEDS: PROSCAR 5 MG PO (07:42)
[2024-12-21] MEDS: DEPAKOTE SPRINKLE 500 MG PO ×2 (07:42→20:56)
--- NOTE | 2024-12-21 08:09 | W.PN.URO.CBU ---
Today's Communication / Plan
-
UOOB
regular diet
f/u ucx
trend hgb
Assessment / Plan
-
s/p robotic pyeloplasty- readmitted with weakness/anemia and elevated cr level
pt improved
urine clear- renal function back to baseline
abd benign- bowel function returning
some expected clot around left renal hilum- HD stable- slight drift down of hgb- will recheck later this afternoon and in am and transfuse if needed- blood consent signed
continue PT
Diagnosis
-
Date of Service: December 21, 2024
-
Post Op Day:
left robotic pyeloplasty 12/18
readmitted for anemia/JANET
Subjective
-
pt looks and feels better
chief c/o is of joint stiffness
some abd discomfort- but eating and + flatus
urine clear
cr down to baseline
hgb drifting down
cx's negative to date
Objective
-
Vital Signs
Temp Pulse Resp BP Pulse Ox
97.6 F 74 18 116/49 97
12/20/24 23:28 12/20/24 23:28 12/20/24 23:28 12/20/24 23:28 12/20/24 23:28
Intake and Output
12/20/24 12/21/24 12/22/24
06:59 06:59 06:59
Intake Total 175 / 175
Output Total 625 / 625 2124
Balance -625 / -625 -370 / -370
Intake:
Oral fluids 930 / 930
IV fluids (Total) 825 / 825
Output:
Urine, Guzman 625 / 625 2124
Laboratory Results
12/21/24 04:17
12/21/24 04:17
Review of Systems
-
Constitutional: Fatigue
Respiratory: No Symptoms
Cardiac: No Symptoms
Abdomen/GI: Abdominal Pain
: No Symptoms
Musculoskeletal: Joint Pain
Physical Exam
-
General - no acute distress
Abdomen - soft, non-tender
Genitalia - normal- guzman in place- urine clear
Skin - warm & dry with no rash
Neuro - AOx3, no motor deficits
Extremities - no clubbing, no cyanosis, no edema
[2024-12-21 10:11] VITALS: BP 134/64; PULSE 74; O2SAT 95
--- NOTE | 2024-12-21 10:49 | W.PN.HOSP.TC ---
Today's Communication/Plan
-
Monitor CBC
Bowel regimen
Assessment / Plan
Assessment / Plan
Gen-AAOx3, NAD
HEENT-NC, AT, anicteric, clear oral mm
Neck-supple
CV-reg, no M, +S1/S2
Lungs-clear B/L
Abd-soft, mild distention, mild diffuse tenderness with subcutaneous emphysema palpated, surgical wounds intact without drainage
Ext-no edema
Musculoskeletal-no cyanosis, clubbing
Skin-warm and dry
Neuro-grossly non-focal
Psych-calm, cooperative
THO on CKD 3a -suspect THO related to recent left renal robotic pyeloplasty December 18, with postoperative intrarenal hematoma, hydronephrosis.
THO improved, creatinine 1.2.
Component of volume depletion suspected to contribute to THO. Continue IV fluid administration. Continue Bocanegra catheter per urology.
Large acute left renal hematoma -noted on CT scan of the left renal hilum around the left renal pelvis. Left double-J ureteral stent in place. Mild to moderate distention of the left intrarenal collecting system with air and fluid and a large
amount of left perinephric edema.
Urinalysis does not reveal significant pyuria. Clinically doubt UTI, currently on empiric ceftriaxone pending cultures. Blood cultures negative so far. Currently on empiric ceftriaxone, discontinue if urine culture negative.
Acute postoperative blood loss anemia, acute on chronic anemia -due to above renal hematoma. Hemoglobin down slightly, 8.2 this morning. CBC pending for later today. Repeat in the morning as well. Consent for transfusion obtained. Relatively
hemodynamically stable. Suspect generalized weakness is multifactorial and related to acute anemia, hyponatremia, THO, volume depletion.
Baseline chronic anemia noted with hemoglobin running between 10 and 11.
Postoperative subcutaneous emphysema -noted on exam.
Acute postoperative hyponatremia -sodium improving, 134.
Diverticulosis
History of gout
Epilepsy -continue Depakote.
BPH
Hyperlipidemia -atorvastatin.
Ambulatory dysfunction -uses a walker at baseline. PT recommends home health.
Order bowel regimen
Full code
Daughter Wandy updated on the phone. She is a nurse.
Anticipated Discharge: 24 - 48 hours
Subjective/Interval History
-
Date of Service: December 21, 2024
Patient seen and examined. Complaining of abdominal bloating and pressure.
Objective Data
-
Labs:
Laboratory Results
12/21/24 12/21/24
04:17 14:08
WBC 6.7 Pending
Hgb 8.2 L Pending
Hct 24.1 L Pending
Plt Count 163 Pending
Sodium 134 L
Potassium 4.4
Chloride 109 H
Carbon Dioxide 24
BUN 17
Creatinine 1.2
Glucose 83
Calcium 7.5 L
Vital Signs:
Vital Signs
Temp Pulse Resp BP Pulse Ox
97.7 F 71 16 129/53 96
12/21/24 07:10 12/21/24 07:10 12/21/24 07:10 12/21/24 07:10 12/21/24 07:10
I&O
12/20/24 12/21/24 12/22/24
06:59 06:59 06:59
Intake Total 1755 / 1755
Output Total 625 / 625 2124 / 2124
Balance -625 / -625 -370 / -370
Review of Systems
-
History Source: Patient
All other systems: Reviewed and negative
[2024-12-21 14:44] LABS: Hematocrit 27.2 % (39.0-52.0); Hemoglobin 9.2 g/dL (13.0-18.0); Mean Corp Hgb Conc. 33.8 g/dL (33.0-37.0); Mean Corpuscular Volume 97.5 fL (80.0-94.0); Mean Platelet Volume 9.9 fL (7.4-10.4); Platelet Count 179 10^3/uL (130-400); Red Blood Cell Count 2.79 10^6/uL (4.70-6.10); Red Cell Dist. Width 13.2 % (11.5-14.5); White Blood Cell Count 8.1 10^3/uL (4.8-10.8)
[2024-12-21 15:10] VITALS: BP 120/58
[2024-12-21] MEDS: LIPITOR 20 MG PO (17:14)
[2024-12-21] MEDS: SENOKOT-S 1 TABLET PO (20:57)
[2024-12-21 23:26] VITALS: BP 127/54
[2024-12-22 06:39] LABS: Hematocrit 21.7 % (39.0-52.0); Hemoglobin 7.6 g/dL (13.0-18.0); Mean Corpuscular Hgb 34.2 pg (27.0-31.0); Mean Corpuscular Volume 97.7 fL (80.0-94.0); Mean Platelet Volume 11.2 fL (7.4-10.4); Platelet Count 168 10^3/uL (130-400); Red Blood Cell Count 2.22 10^6/uL (4.70-6.10); Red Cell Dist. Width 13.2 % (11.5-14.5); White Blood Cell Count 5.8 10^3/uL (4.8-10.8)
--- NOTE | 2024-12-22 06:52 | W.PN.URO.CBU ---
Today's Communication / Plan
-
diflucan dose
check afternoon hgb
Assessment / Plan
-
s/p robotic pyeloplasty- readmitted with weakness/anemia and elevated cr level
pt clinically stable
will give single dose of diflucan and discuss with dr cornejo if further therapy needed
IN TERMS OF HGB- no obvious signs of bleeding- but very low this am- plan to repeat this afternoon and transfuse if needed
clinically pt is much improved and if no bleeding will be ready for discharge
Diagnosis
-
Date of Service: December 22, 2024
-
Post Op Day:
left robotic pyeloplasty 12/18
readmitted for anemia/JANET
Subjective
-
pt feels good
eating and + flatus
urine clear
no fevers\\
cr back to baseline
ucx shows yeast
HGB WAS UP YESTERDAY- NOW LOW- NO CLINICAL SIGNS OF BLEEDING
Objective
-
Vital Signs
Temp Pulse Resp BP Pulse Ox
98.2 F 69 18 127/54 98
12/21/24 23:26 12/21/24 23:26 12/21/24 23:26 12/21/24 23:26 12/21/24 23:26
Intake and Output
12/20/24 12/21/24 12/22/24
06:59 06:59 06:59
Intake Total 1755 / 1755
Output Total 625 / 625 2124
Balance -625 / -625 -370 / -370
Intake:
Oral fluids 930 / 930
IV fluids (Total) 825 / 825
Output:
Urine, Guzman 625 / 625 2124
Laboratory Results
12/22/24 05:36
Review of Systems
-
Constitutional: Fatigue
Respiratory: No Symptoms
Cardiac: No Symptoms
Abdomen/GI: No Symptoms
Musculoskeletal: Joint Pain
Physical Exam
-
General - no acute distress
Abdomen - soft, non-tender
Genitalia - normal- guzman in place- urine clear
Skin - warm & dry with no rash
Neuro - AOx3, no motor deficits
[2024-12-22 07:13] LABS: ALT (SGPT) < 10 U/L (0-50); AST (SGOT) 11 U/L (17-59); Albumin 2.1 g/dl (3.5-5.0); Alkaline Phosphatase 39 U/L (38-126); Blood Urea Nitrogen 18 mg/dl (9-20); Calcium 7.7 mg/dl (8.4-10.2); Carbon Dioxide 24 mmol/L (22-30); Chloride 110 mmol/L (98-107); Estimated Creatinine Clearance 48 ml/min; Glucose 81 mg/dl (70-99); Potassium 4.3 mmol/L (3.5-5.1); Sodium 138 mmol/L (135-145); Total Bilirubin 0.4 mg/dl (0.2-1.3); Total Protein 4.2 g/dl (6.3-8.2); eGFR > 60.00
[2024-12-22 07:30] VITALS: BP 121/55
[2024-12-22] MEDS: DIFLUCAN 200 MG 100 IV (08:22)
[2024-12-22] MEDS: VITAMIN B-12 1000 MCG PO (08:27)
[2024-12-22] MEDS: MIRALAX 17 GRAMS PO (08:27)
[2024-12-22] MEDS: ZYLOPRIM 100 MG PO (08:27)
[2024-12-22] MEDS: DEPAKOTE SPRINKLE 500 MG PO ×2 (08:27→19:50)
[2024-12-22] MEDS: SENOKOT-S 1 TABLET PO ×2 (08:27→19:50)
[2024-12-22] MEDS: PROSCAR 5 MG PO (09:52)
[2024-12-22 10:51] VITALS: BP 151/70
--- NOTE | 2024-12-22 11:15 | W.PN.HOSP.TC ---
Today's Communication/Plan
-
repeat h/h later today
anti-fungal per urology
THO resolved
home vn on discharge-today vs. tomm
Assessment / Plan
Assessment / Plan
Gen-AAOx3, NAD
HEENT-NC, AT, anicteric, clear oral mm
Neck-supple
CV-reg, no M, +S1/S2
Lungs-clear B/L
Abd-soft, mild distention, mild diffuse tenderness with subcutaneous emphysema palpated, surgical wounds intact without drainage
Gu-guzman yellow color urine
Ext-no edema
Musculoskeletal-no cyanosis, clubbing
Skin-warm and dry
Neuro-grossly non-focal
Psych-calm, cooperative
#THO on CKD 3a -suspect THO related to recent left renal robotic pyeloplasty December 18, with postoperative intrarenal hematoma, hydronephrosis.
THO improved, creatinine 1.1.
Component of volume depletion suspected to contribute to THO. s/p IV fluid administration. Continue Guzman catheter per urology.
#Large acute left renal hematoma -noted on CT scan of the left renal hilum around the left renal pelvis. Left double-J ureteral stent in place. Mild to moderate distention of the left intrarenal collecting system with air and fluid and a large
amount of left perinephric edema.
Urinalysis does not reveal significant pyuria.
Blood cultures negative so far.
Urine culture with yeast. Status post Diflucan per urology. Discontinue ceftriaxone.
Await further urology recs for treatment if needed
#Acute postoperative blood loss anemia, acute on chronic anemia
#Baseline chronic anemia noted with hemoglobin running between 10 and 11.
due to above renal hematoma. Hemoglobin down slightly,7.7 this morning. CBC pending for later today.
Relatively hemodynamically stable. Suspect generalized weakness is multifactorial and related to acute anemia, hyponatremia, THO, volume depletion.
Postoperative subcutaneous emphysema -noted on exam.
Acute postoperative hyponatremia -sodium improved.
Diverticulosis
History of gout
Epilepsy -continue Depakote.
BPH
Hyperlipidemia -atorvastatin.
Ambulatory dysfunction -uses a walker at baseline. PT recommends home health.
Order bowel regimen
Full code
Anticipated Discharge: Within 24 hours
Subjective/Interval History
-
Date of Service: December 22, 2024
Patient without any complaints
yellow color urine in Guzman catheter
Objective Data
-
Labs:
Laboratory Results
12/22/24 12/22/24
05:36 14:00
WBC 5.8
Hgb 7.6 L Pending
Hct 21.7 L Pending
Plt Count 168
Sodium 138
Potassium 4.3
Chloride 110 H
Carbon Dioxide 24
BUN 18
Creatinine 1.1
Glucose 81
Calcium 7.7 L
Total Bilirubin 0.4
AST 11 L
ALT < 10
Alkaline Phosphatase 39
Vital Signs:
Vital Signs
Temp Pulse Resp BP Pulse Ox
98.3 F 70 18 121/55 96
12/22/24 07:30 12/22/24 07:30 12/22/24 07:30 12/22/24 07:30 12/22/24 08:30
I&O
12/21/24 12/22/24 12/23/24
06:59 06:59 06:59
Intake Total 1755 / 1755 0 / 0
Output Total 2125 / 2125 500 / 500
Balance -370 / -370 -500 / -500
[2024-12-22 14:43] LABS: Hematocrit 25.5 % (39.0-52.0); Hemoglobin 8.9 g/dL (13.0-18.0)
[2024-12-22 15:53] VITALS: BP 133/54
--- NOTE | 2024-12-22 17:10 | CM ---
PT OT indicated VN .
Spoke with pt in room . He requested [facility] .
Indwelling Bocanegra remains.
PLAN Home with [facility]
[2024-12-22] MEDS: LIPITOR 20 MG PO (17:11)
[2024-12-22] MEDS: TYLENOL 650 MG PO (19:51)
[2024-12-22 23:05] VITALS: BP 130/61
[2024-12-23 07:55] VITALS: BP 125/70
--- NOTE | 2024-12-23 07:56 | PTCARENOTE ---
Per Urology order the guzman catheter is out. I gave urinal to void into for trial.
--- NOTE | 2024-12-23 08:03 | W.PN.URO.CBU ---
Today's Communication / Plan
-
F/U hemoglobin this AM
No further antifungal necessary
Guzman out for trial of void
Likely stable for discharge today
Assessment / Plan
-
s/p robotic pyeloplasty- readmitted with weakness/anemia and elevated cr level
Small RP hematoma near operative site
Constipation
pt clinically stable
F/U hemoglobin this AM
No further antifungal necessary
Guzman out for trial of void
Likely stable for discharge today
Diagnosis
-
Date of Service: December 23, 2024
-
Patient Diagnosis:
L UPJ obstruction
Post Op Day:
Post Op Day:
left robotic pyeloplasty 12/18
readmitted for anemia/JANET
Subjective
-
feeling well
ambulating
had a BM
guzman with clear urine, leaking overnight
Objective
-
Vital Signs
Temp Pulse Resp BP Pulse Ox
98.4 F 72 16 130/61 95
12/22/24 23:05 12/22/24 23:05 12/22/24 23:05 12/22/24 23:05 12/22/24 23:05
Intake and Output
12/22/24 12/23/24 12/24/24
06:59 06:59 06:59
Intake Total 0 / 0 480 / 480
Output Total 500 / 500 650 / 650
Balance -500 / -500 -170 / -170
Intake:
Oral fluids 0 / 0 480 / 480
Output:
Urine, Guzman 500 / 500 650 / 650
Other:
Number of approximated MODERATE 2
amounts of urine
Laboratory Results
12/22/24 05:36
Physical Exam
-
General - well developed, well nourished, no acute distress
Chest - clear bilaterally
Abdomen - soft, non-tender, positive bowel sounds, no CVAT, no incisional pain or distention
Guzman clear urine
[2024-12-23] MEDS: MIRALAX 17 GRAMS PO (08:26)
[2024-12-23] MEDS: SENOKOT-S 1 TABLET PO (08:27)
[2024-12-23] MEDS: PROSCAR 5 MG PO (08:27)
[2024-12-23] MEDS: ZYLOPRIM 100 MG PO (08:27)
[2024-12-23] MEDS: DEPAKOTE SPRINKLE 500 MG PO (08:27)
[2024-12-23] MEDS: VITAMIN B-12 1000 MCG PO (08:27)
[2024-12-23 08:42] LABS: Hematocrit 24.9 % (39.0-52.0); Hemoglobin 8.5 g/dL (13.0-18.0); Mean Corp Hgb Conc. 34.1 g/dL (33.0-37.0); Mean Corpuscular Hgb 33.6 pg (27.0-31.0); Mean Corpuscular Volume 98.4 fL (80.0-94.0); Mean Platelet Volume 10.9 fL (7.4-10.4); Platelet Count 202 10^3/uL (130-400); Red Blood Cell Count 2.53 10^6/uL (4.70-6.10); Red Cell Dist. Width 13.2 % (11.5-14.5); White Blood Cell Count 6.8 10^3/uL (4.8-10.8)
--- NOTE | 2024-12-23 08:52 | CM ---
workshop manager reviewed patient's chart and plan is to home with visiting nurses, patient has selected [facility], [facility] liaison has been contacted.
Plan; Home with spouse and [facility].
[2024-12-23 09:58] VITALS: BP 125/70; PULSE 70
--- NOTE | 2024-12-23 11:14 | W.PN.HOSP.TC ---
Today's Communication/Plan
-
Outpatient follow-up with urology
Assessment / Plan
Assessment / Plan
Gen-AAOx3, NAD
HEENT-NC, AT, anicteric, clear oral mm
Neck-supple
Lungs-nonlabored respiration
Abd-mild distention
Gu-Bocanegra removed
Ext-no edema
Musculoskeletal-no cyanosis, clubbing
Skin-warm and dry
Neuro-grossly non-focal
Psych-calm, cooperative
#THO on CKD 3a -suspect THO related to recent left renal robotic pyeloplasty December 18, with postoperative intrarenal hematoma, hydronephrosis.
THO improved, creatinine 1.1.
Component of volume depletion suspected to contribute to THO. s/p IV fluid administration. Bocanegra catheter discontinued. Patient voiding.
#Large acute left renal hematoma -noted on CT scan of the left renal hilum around the left renal pelvis. Left double-J ureteral stent in place. Mild to moderate distention of the left intrarenal collecting system with air and fluid and a large
amount of left perinephric edema.
Urinalysis does not reveal significant pyuria.
Blood cultures negative so far.
Urine culture with yeast. Status post Diflucan per urology. Discontinue ceftriaxone.
Await further urology recs for treatment if needed) urology no further treatment required.
#Acute postoperative blood loss anemia, acute on chronic anemia
#Baseline chronic anemia noted with hemoglobin running between 10 and 11.
due to above renal hematoma. Hemoglobin improved to 8.5.
Relatively hemodynamically stable. Suspect generalized weakness is multifactorial and related to acute anemia, hyponatremia, THO, volume depletion.
Postoperative subcutaneous emphysema -noted on exam.
Acute postoperative hyponatremia -sodium improved.
Diverticulosis
History of gout
Epilepsy -continue Depakote.
BPH
Hyperlipidemia -atorvastatin.
Ambulatory dysfunction -uses a walker at baseline. PT recommends home health.
History of CVA. Per Dr. Peffer okay to restart patient on baby aspirin with history of RP hematoma.
Order bowel regimen
Full code
Discussed with spouse at bedside in details.
Discussed with Dr. Negerte
More than 30 minutes spent in discharge including
Final examination of the patient
Summarizing hospital stay
Instructions for continuing care to all relevant caregivers
Preparation of discharge records, prescriptions, and referral forms
Total time spent (in minutes): 52
Anticipated Discharge: Today
Subjective/Interval History
-
Date of Service: December 23, 2024
Bocanegra catheter was removed
Patient voiding without difficulty
Objective Data
-
Labs:
Laboratory Results
12/23/24
06:08
WBC 6.8
Hgb 8.5 L
Hct 24.9 L
Plt Count 202 D
Vital Signs:
Vital Signs
Temp Pulse Resp BP Pulse Ox
98.6 F 65 16 125/70 95
12/23/24 07:55 12/23/24 07:55 12/23/24 07:55 12/23/24 07:55 12/23/24 08:00
I&O
12/22/24 12/23/24 12/24/24
06:59 06:59 06:59
Intake Total 0 / 0 480 / 480
Output Total 500 / 500 650 / 650
Balance -500 / -500 -170 / -170
--- NOTE | 2024-12-23 11:17 | W.DCSUMMARY ---
Discharge Summary
Discharge Data
Date of Admission: 12/20/24
Date of Discharge: 12/23/24
-
Pending Results: No
Hospital Course
84-year-old male extensive past medical history of reticulosis, gout, epilepsy, BPH, hyperlipidemia, stroke, CKD who presented with weakness. Patient underwent recent left renal robotic pyeloplasty with postoperative intrarenal hematoma,
hydronephrosis. Patient with urine retention and Bocanegra catheter was placed on admission. Patient was eval by nephrology. Patient underwent CAT scan of the abdomen pelvis. Patient hemoglobin was trended. Urinalysis does not reveal significant
pyuria. IV antibiotics were started which was discontinued as urine culture showed with yeast. Patient received dose of Diflucan. Patient Bocanegra catheter was removed and patient was voiding without difficulty. Patient did not require blood
transfusion. Patient was feeling better and pathology patient can be discharged with outpatient follow-up. Per urology patient can resume his daily aspirin.
Discharge Plan
-
Patient Disposition: Home with Home Care
Discharge Diagnosis/Procedures: Acute kidney injury on chronic kidney disease stage IIIa
Large acute left renal hematoma
left renal robotic pyeloplasty
Condition: Fair
Diet: Regular
Activity: As tolerated
Driving Restrictions: As prior to admission
Blood Work: CBC and BMP in 1 week via primary doctor
Other Services: VN
Referrals:
Kasia Mathews MD, Resident [Family Provider, General] - in less than 1 week
Jaycob Negrete MD [Active, Urology] - in less than 1 week
Prescriptions:
Continued
allopurinol 100 MG tablet
100 mg PO DAILY
finasteride 5 MG tablet
5 mg PO DAILY
divalproex 125 mg capsule, delayed rel sprinkle
500 mg PO BID
acetaminophen [Tylenol] 325 mg Tablet
650 mg PO Q4H PRN (Reason: mild pain/CALVO/temp>100.4F)
Probiotic
1 tab PO DAILY
oxycodone-acetaminophen 5-325 mg Tablet
1 tab PO Q4HPRN PRN (Reason: Moderate pain) Qty: 5 0RF
mecobalamin (vitamin B12) [B12 Active] 1,000 mcg tablet,chewable
1,000 mcg PO DAILY 30 Days Qty: 30 0RF
atorvastatin 20 mg Tablet
20 mg PO QPM 30 Days Qty: 30 0RF
aspirin 81 mg Tablet,Chewable
81 mg PO DAILY Qty: 30 0RF
Discontinued
levofloxacin 500 mg tablet
500 mg PO DAILY
Discharge Orders:
Discharge Patient (As Directed); Ordered 12/23/24
Ordered By: Dax Montgomery
Discharge Date and Time
Discharge Date/Time: 12/23/24 11:52
Print Language: AUSTRALIAN
--- NOTE | 2024-12-23 11:48 | VNURNOTE ---
Home Health Liaison met with patient's daughter Wandy at bedside to discuss [facility] nurse/therapy, visits, schedule and homebound status. Sheis agreeable and understands that visits at home will be 2-3 x per week to assess and teach medical
management. She is aware that [facility] will contact them for start of care in 1-2 days after discharge from .
[facility] referral completed in [facility] Port.
== END 2024-12-23 11:52 | disposition home health service (06) | DRG 683 ==
LOC: 4 EAST ACU 03:10
PROVIDERS: Hospitalist; ADMITTING PHYSICIAN Internal Medicine; ATTENDING PHYSICIAN Hospitalist; CONSULT PHYSICIAN Specialist; EMERGENCY PHYSICIAN Emergency Medicine; FAMILY PHYSICIAN Student in an Organized Health Care Education/Training Program
DX: N17.9 Acute kidney failure, unspecified (principal); D62 Acute posthemorrhagic anemia; S37.012A Minor contusion of left kidney, initial encounter; E87.1 Hypo-osmolality and hyponatremia; E87.20 Acidosis, unspecified; N18.31 Chronic kidney disease, stage 3a; N40.0 Benign prostatic hyperplasia without lower urinary tract symptoms; E78.00 Pure hypercholesterolemia, unspecified; G40.909 Epilepsy, unspecified, not intractable, without status epilepticus; E86.1 Hypovolemia; Z86.73 Personal history of transient ischemic attack (TIA), and cerebral infarction without residual deficits; Z85.828 Personal history of other malignant neoplasm of skin; F17.290 Nicotine dependence, other tobacco product, uncomplicated; Z87.440 Personal history of urinary (tract) infections
CPT/HCPCS: 51798; 74176; 80048; 80053; 81003; 81015; 82570; 83605; 83735; 83930; 83935; 84300; 85014; 85018; 85025; 85027; 86850; 86900; 86901; 87040; 87086; 96361; 96374; 96375; 97116; 97162; 97166; 97530; 97535; 99285

== ENCOUNTER → 2025-01-02 10:51 | Outpatient (REF) | payer MEDICARE, SELFPAY ==
[2025-01-02 16:40] LABS: ALT (SGPT) < 10 U/L (0-50); AST (SGOT) 15 U/L (17-59); Albumin 3.1 g/dl (3.5-5.0); Alkaline Phosphatase 69 U/L (38-126); Blood Urea Nitrogen 12 mg/dl (9-20); Calcium 8.5 mg/dl (8.4-10.2); Carbon Dioxide 23 mmol/L (22-30); Chloride 107 mmol/L (98-107); Glucose 92 mg/dl (70-99); Iron 62 ug/dl (49-181); Potassium 4.7 mmol/L (3.5-5.1); Sodium 136 mmol/L (135-145); Total Bilirubin 0.5 mg/dl (0.2-1.3); Total Protein 5.9 g/dl (6.3-8.2); eGFR 54.17
[2025-01-02 16:44] LABS: % Basophils 0.7 % (0-2); % Eosinophils 9.2 % (0-6); % Monocytes 9.9 % (1.7-9.3); % Neutrophils 63.2 % (42.2-75.2); Absolute Basophils 0.1 10^3/uL (0-0.2); Absolute Eosinophils 0.9 10^3/uL (0-0.7); Absolute Immature Granulocytes 0.1 10^3/uL (0-0.05); Absolute Lymphocytes 1.6 10^3/uL (1.2-3.4); Absolute Neutrophils 6.5 10^3/uL (1.4-6.5); Depakane 92.3 ug/ml (50.0-120.0); Hematocrit 34.2 % (39.0-52.0); Hemoglobin 11.7 g/dL (13.0-18.0); Mean Corp Hgb Conc. 34.2 g/dL (33.0-37.0); Mean Corpuscular Hgb 34.6 pg (27.0-31.0); Mean Corpuscular Volume 101.2 fL (80.0-94.0); Mean Platelet Volume 11.1 fL (7.4-10.4); Nucleated Red Blood Cells % 0 % (-); Platelet Count 435 10^3/uL (130-400); Red Blood Cell Count 3.38 10^6/uL (4.70-6.10); Red Cell Dist. Width 13.2 % (11.5-14.5); White Blood Cell Count 10.2 10^3/uL (4.8-10.8)
[2025-01-02 16:50] LABS: Percent Saturation 24 % (20-50); Total Iron Binding Capacity 251 ug/dl (261-462)
[2025-01-02 17:43] LABS: Medical Necessity Pt Refused Y
[2025-01-04 22:37] LABS: Transferrin 188 mg/dL (200-360)
== END ==
LOC: HWLAB 10:51
PROVIDERS: ATTENDING PHYSICIAN Nurse Practitioner Adult Health; FAMILY PHYSICIAN Student in an Organized Health Care Education/Training Program
DX: N18.31 Chronic kidney disease, stage 3a (principal); D64.9 Anemia, unspecified; Z87.440 Personal history of urinary (tract) infections; G40.909 Epilepsy, unspecified, not intractable, without status epilepticus
CPT/HCPCS: 36415; 80053; 80164; 82728; 83540; 83550; 84466; 85025